=== PATIENT | female | born 1975 | race Caucasian/White ===

== ENCOUNTER 2018-02-05 18:32 | Emergency (ER) | payer OTHER, SELFPAY ==
[2018-02-05] MEDS ORDERED: METOCLOPRAMIDE 10 MG/2mL INJ ONE ×2 (21:56→22:25)
[2018-02-05] MEDS ORDERED: KETOROLAC 30 MG/ML INJ ONE ×2 (21:57→22:25)
[2018-02-05] MEDS ORDERED: DIPHENHYDRAMINE 50 MG/ML VIAL ONE ×2 (21:57→22:25)
[2018-02-05 23:19] LABS: Urine Blood NEGATIVE (NEG); Urine Glucose NEGATIVE (NEG); Urine Protein NEGATIVE (NEG)
[2018-02-05] MEDS ORDERED: DEXAMETHASONE 10 MG/ML VIAL ONE (23:46)
--- NOTE | 2018-02-05 23:56 | ER ---
Nurse's Notes [facility] Name: Dara Looney Age: 42 yrs Sex: Female : 1975 Arrival Date: 02/05/2018 Time: 18:32 Bed 18 Private MD: Diagnosis: Headache Presentation: 02/05 19:00 Presenting complaint: Patient states: "I have had migraines my whole life. I haven't lk1 had one in a while. I was seeing designs in my eyes yesterday and I laid down. This morning I woke up with horrible pain and vomiting. I could not go to work.". Transition of care: patient was not received from another setting of care. Onset of symptoms was February 04, 2018 at 09:00. Care prior to arrival: None. 19:00 Method Of Arrival: Ambulatory lk1 19:00 Acuity: SHEILA 3 lk1 Triage Assessment: 19:02 Headache History: The patient has had previous headaches and this one is different than lk1 previous episodes, and this one is more severe than previous episodes. General: Appears uncomfortable, Behavior is calm, cooperative, appropriate for age. Pain: Complains of pain in head Pain currently is 10 out of 10 on a pain scale. Pain began 2-3 days ago. Also complains of nausea, vomit. Neuro: Level of Consciousness is awake, alert, obeys commands, Oriented to person, place, time, situation, Moves all extremities. Full function Gait is steady, Speech is normal, Facial symmetry appears normal, Pupils are PERRLA. CONVEYOR FEEDER: 19:03 LMP N/A - Hysterectomy lk1 Historical: - Allergies: 19:02 No Known Allergies; lk1 - PMHx: 19:02 hiatal hernia; Migraines; lk1 - PSHx: 19:02 Tonsillectomy; ; Hysterectomy; Cholecystectomy; lk1 - Immunization history:: Adult Immunizations up to date. - Social history:: Smoking status: Patient/guardian denies using tobacco. Screenin:45 Abuse screen: Denies threats or abuse. Denies injuries from another. Nutritional bp screening: No deficits noted. Tuberculosis screening: No symptoms or risk factors identified. Fall Risk None identified. Assessment: 20:45 General: Appears in no apparent distress. comfortable, obese, Behavior is calm, bp cooperative, appropriate for age. Pain: Complains of pain in head. Neuro: Level of Consciousness is awake, alert, obeys commands, Oriented to person, place, time, situation, Appropriate for age. Cardiovascular: No deficits noted. Respiratory: Airway is patent Respiratory effort is even, unlabored, Respiratory pattern is regular, symmetrical. GI: Reports vomiting. : No signs and/or symptoms were reported regarding the genitourinary system. EENT: No deficits noted. Derm: No deficits noted. Musculoskeletal: Circulation, motion, and sensation intact. Range of motion: intact in all extremities. 21:48 Reassessment: PT REFUSING HEALTH CARE ACTIVITIES, STATING OFFERED PAIN MEDICATION bp "WON'T WORK FOR ME". WHEN ASKED WHAT THE ER CAN HELP HER WITH TODAY, PT REFUSED TO SPEAK FURTHER WITH NURSING STAFF. PROVIDER NOTIFIED. 22:20 Reassessment: PT COUNSELED BY PROVIDER, NOW AGREEING TO FURTHER HEALTH CARE ACTIVITIES. bp PT TO CT WITH DISC JOCKEY. 02/06 00:14 Reassessment: PT D/C HOME AMBULATORY WITH FAMILY, DX WITH HEADACHE. bp Vital Signs: 02/05 19:03 BP 118 / 83; Pulse 72; Resp 15; Temp 99.0(TE); Pulse Ox 100% on R/A; Weight 99.79 kg lk1 (R); Height 5 ft. 5 in. (165.10 cm) (R); Pain 10/10; 22:30 BP 104 / 85; Pulse 67; Resp 15; Pulse Ox 99% on R/A; mt 23:27 BP 109 / 76; Pulse 89; Resp 15; Pulse Ox 99% on R/A; mt 19:03 Body Mass Index 36.61 (99.79 kg, 165.10 cm) lk1 ED Course: 18:32 Patient arrived in ED. as 19:01 Triage completed. lk1 19:04 Arm band placed on right wrist. lk1 20:45 Patient has correct armband on for positive identification. Bed in low position. Call bp light in reach. Side rails up X2. 20:46 Ulices Baca NP is PHCP. pm1 20:46 Irvin Velasco MD is Attending Physician. pm1 20:49 Osmin Chakraborty, DENNIS is Primary Nurse. bp 22:10 Inserted saline lock: 20 gauge in right antecubital area, using aseptic technique. bp 22:25 CT Head Brain wo Cont In Process Unspecified. EDMS 23:56 Alli Silverman MD is Referral Physician. pm1 02/06 00:15 No provider procedures requiring assistance completed. IV discontinued, intact, bp bleeding controlled, No redness/swelling at site. Pressure dressing applied. Administered Medications: 02/05 21:48 Not Given (Patient Refused): Benadryl 25 mg IVP once bp 21:48 Not Given (Patient Refused): TORadol 30 mg IVP once bp 21:48 Not Given (Patient Refused): Reglan 10 mg IVP once; over 1 to 2 minutes bp 21:48 Not Given (Patient Refused): NS 0.9% 1000 ml IV at 1000 ml once bp 22:15 Drug: Reglan 10 mg Route: IVP; Site: right antecubital; bp 23:43 Follow up: Response: No adverse reaction bp 22:15 Drug: Benadryl 25 mg Route: IVP; Site: right antecubital; bp 23:43 Follow up: Response: Pain is decreased bp 22:15 Drug: Ketorolac 30 mg Route: IVP; Site: right antecubital; bp 23:43 Follow up: Response: Pain is decreased bp 23:30 Drug: Decadron - Dexamethasone 10 mg Route: IVP; Site: right antecubital; bp 23:43 Follow up: Response: Pain is decreased bp Outcome: 23:56 Discharge ordered by . pm1 02/06 00:15 Discharged to home ambulatory, with family. bp Condition: stable Discharge instructions given to patient, Instructed on discharge instructions, follow up and referral plans. medication usage, Demonstrated understanding of instructions, follow-up care, medications, Prescriptions given X 1. 00:16 Patient left the ED. bp Signatures: Dispatcher [employer] EDMS Dorcas Shaw Leah RN RN lk1 Ulices Baca, KAYE SUPERVISOR DRAPERY HANGING pm1 Shaniqua Maciel mt, Brian, RN RN bp
--- NOTE | 2018-02-05 23:56 | EDPHYS ---
Physician Documentation [facility] Name: Dara Looney Age: 42 yrs Sex: Female : 1975 Arrival Date: 02/05/2018 Time: 18:32 Bed 18 Private MD: ED Physician Irvin Velasco HPI: 02/05 22:00 This 42 yrs old Female presents to ER via Ambulatory with complaints of pm1 Headache, Vomiting. 22:00 The patient complains of pain to the right eye and right side of forehead. The patient pm1 describes the headache as aching. Onset: The symptoms/episode began/occurred 2 day(s) ago. Associated signs and symptoms: Pertinent positives: nausea, vomiting, Pertinent negatives: neck stiffness, paresthesias, rash, vision changes. Severity of symptoms: in the emergency department the pain is actually worse. Headache History: The patient has had previous headaches and this one is similar to previous episodes, and this one is more severe than previous episodes. The symptoms are alleviated by nothing. the symptoms are aggravated by lights. The patient has experienced similar episodes in the past, multiple times. The patient has not recently seen a physician. Patient with similar headache presentation today to her prior migraine headaches, just more intense.. 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 - Social history:: Smoking status: Patient/guardian denies using tobacco. ROS: 22:00 Constitutional: Negative for fever, chills, and weight loss, Eyes: Negative for injury, pm1 pain, redness, and discharge, ENT: Negative for injury, pain, and discharge, Neck: Negative for injury, pain, and swelling, Cardiovascular: Negative for chest pain, palpitations, and edema, Respiratory: Negative for shortness of breath, cough, wheezing, and pleuritic chest pain, Back: Negative for injury and pain, : Negative for injury, bleeding, discharge, and swelling, MS/Extremity: Negative for injury and deformity, Skin: Negative for injury, rash, and discoloration. 22:00 Abdomen/GI: Positive for nausea and vomiting, Negative for abdominal pain, diarrhea. 22:00 Neuro: Positive for headache. Exam: 22:00 Constitutional: This is a well developed, well nourished patient who is awake, alert, pm1 and in no acute distress. Head/Face: Normocephalic, atraumatic. Eyes: Pupils equal round and reactive to light, extra-ocular motions intact. Lids and lashes normal. Conjunctiva and sclera are non-icteric and not injected. Cornea within normal limits. Periorbital areas with no swelling, redness, or edema. ENT: Nares patent. No nasal discharge, no septal abnormalities noted. Tympanic membranes are normal and external auditory canals are clear. Oropharynx with no redness, swelling, or masses, exudates, or evidence of obstruction, uvula midline. Mucous membranes moist. Neck: Trachea midline, no thyromegaly or masses palpated, and no cervical lymphadenopathy. Supple, full range of motion without nuchal rigidity, or vertebral point tenderness. No Meningismus. Chest/axilla: Normal chest wall appearance and motion. Nontender with no deformity. No lesions are appreciated. Cardiovascular: Regular rate and rhythm with a normal S1 and S2. No gallops, murmurs, or rubs. Normal PMI, no JVD. No pulse deficits. Respiratory: Lungs have equal breath sounds bilaterally, clear to auscultation and percussion. No rales, rhonchi or wheezes noted. No increased work of breathing, no retractions or nasal flaring. Abdomen/GI: Soft, non-tender, with normal bowel sounds. No distension or tympany. No guarding or rebound. No evidence of tenderness throughout. Back: No spinal tenderness. No costovertebral tenderness. Full range of motion. Skin: Warm, dry with normal turgor. Normal color with no rashes, no lesions, and no evidence of cellulitis. MS/ Extremity: Pulses equal, no cyanosis. Neurovascular intact. Full, normal range of motion. 22:00 Neuro: Orientation: is normal, Mentation: is normal, Cranial nerves: CN II- XII are normal as tested, Cerebellar function: normal finger to nose testing, Motor: moves all fours, strength is normal, strength is 5/5 in all extremities, Sensation: is normal, no obvious gross deficits. Vital Signs: 19:03 BP 118 / 83; Pulse 72; Resp 15; Temp 99.0(TE); Pulse Ox 100% on R/A; Weight 99.79 kg lk1 (R); Height 5 ft. 5 in. (165.10 cm) (R); Pain 10/10; 22:30 BP 104 / 85; Pulse 67; Resp 15; Pulse Ox 99% on R/A; mt 23:27 BP 109 / 76; Pulse 89; Resp 15; Pulse Ox 99% on R/A; mt 19:03 Body Mass Index 36.61 (99.79 kg, 165.10 cm) lk1 MDM: 20:51 Patient medically screened. pm1 23:53 Data reviewed: vital signs. Data interpreted: Pulse oximetry: on room air is 99 %. pm1 Interpretation: normal. Counseling: I had a detailed discussion with the patient and/or guardian regarding: the historical points, exam findings, and any diagnostic results supporting the discharge/admit diagnosis, radiology results, the need for outpatient follow up, to return to the emergency department if symptoms worsen or persist or if there are any questions or concerns that arise at home. 02/05 22:40 Order name: Urine Dipstick--Ancillary (enter results); Complete Time: 03:42 em1 02/05 22:05 Order name: CT Head Brain wo Cont pm1 02/05 21:35 Order name: IV Saline Lock; Complete Time: 22:18 pm1 02/05 22:05 Order name: Urine Dipstick-Ancillary (obtain specimen); Complete Time: 22:33 pm1 02/05 22:05 Order name: Urine Test (obtain specimen); Complete Time: 22:33 pm1 Administered Medications: 21:48 Not Given (Patient Refused): Benadryl 25 mg IVP once bp 21:48 Not Given (Patient Refused): TORadol 30 mg IVP once bp 21:48 Not Given (Patient Refused): Reglan 10 mg IVP once; over 1 to 2 minutes bp 21:48 Not Given (Patient Refused): NS 0.9% 1000 ml IV at 1000 ml once bp 22:15 Drug: Reglan 10 mg Route: IVP; Site: right antecubital; bp 23:43 Follow up: Response: No adverse reaction bp 22:15 Drug: Benadryl 25 mg Route: IVP; Site: right antecubital; bp 23:43 Follow up: Response: Pain is decreased bp 22:15 Drug: Ketorolac 30 mg Route: IVP; Site: right antecubital; bp 23:43 Follow up: Response: Pain is decreased bp 23:30 Drug: Decadron - Dexamethasone 10 mg Route: IVP; Site: right antecubital; bp 23:43 Follow up: Response: Pain is decreased bp Disposition: 02/06 01:29 Co-signature as Attending Physician, Irvin Velasco MD. cory Disposition: 02/05/18 23:56 Discharged to Home. Impression: Headache. - Condition is Stable. - Discharge Instructions: Migraine Headache. - Prescriptions for Fiorinal 50- 325-40 mg Oral Capsule - take 1 capsule by ORAL route every 4 hours As needed - not to exceed 6 capsules per day; 20 capsule. - Work release form, Medication Reconciliation Form, Thank You Letter, Prescription Opioid Use form. - Follow up: Emergency Department; When: As needed; Reason: Worsening of condition. Follow up: Private Physician; When: 2 - 3 days; Reason: Recheck today's complaints, Continuance of care, Re-evaluation by your physician. Follow up: Alli Silverman MD; When: 2 - 3 days; Reason: Recheck today's complaints, Continuance of care, Re-evaluation by your physician. - Problem is new. - Symptoms have improved. Signatures: Dispatcher [employer] Irvin Feldman MD MD pkl Kluge, Leah RN RN lk1 Ulices Baca, KAYE PRESS READER pm1 Osmin Chakraborty RN RN bp
[2018-02-06] MEDS ORDERED: DEXAMETHASONE 10 MG/ML VIAL ONE (00:01)
[2018-02-06 01:08] VITALS: TEMP 99
[2018-02-06 01:09] VITALS: O2SAT 99
[2018-02-06 01:11] VITALS: BP 109/76
--- NOTE | 2018-02-06 08:54 | RAD REPORT ---
EXAM DESCRIPTION: CT - Head Brain Wo Cont - 02/06/2018 2:29 am CLINICAL HISTORY: Headache COMPARISON: None. TECHNIQUE: Computed axial tomography of the head was obtained. IV contrast was not requested. A prel iminary report was generated by [employer] and reviewed prior to this dictation All CT scans are performed using dose optimization technique as appropriate and may include automated exposure control or mA/KV adjustment according to patient size. FINDINGS: An intracranial bleed is not seen . The ventricles are normal in caliber. No extra-axial fluid collection is noted. Fluid within the sinuses/ mastoids is not seen. IMPRESSION: No acute intracranial abnormality is seen. If patient's symptoms persist MRI of the bra in would be recommended.
== END 2018-02-06 00:16 | disposition home or self-care (01) ==
LOC: ER 18:32
DX: R51 Headache (principal)
CPT/HCPCS: 70450; 81003; 96374; 96375; 99284; J1100; J2765

== ENCOUNTER 2018-10-12 18:51 | Emergency (ER) | payer OTHER ==
--- OUTSIDE RECORDS SUMMARY | 2018-10-12 18:53 | XMS REPORT ---
:1975 [facility] Address [address] [place] [address] [address] [place] [address] Care Team Providers Name Role Phone Unavailable Unavailable Unavailable Problems This patient has no known problems. Allergies, Adverse Reactions, Alerts This patient has no known allergies or adverse reactions. Medications This patient has no known medications.
[2018-10-12] MEDS ORDERED: HYDROCODONE/APAP 10/325 TAB ONE (20:02)
--- NOTE | 2018-10-12 20:27 | RAD REPORT ---
EXAM DESCRIPTION: RAD - Foot Right 3 View - 10/12/2018 8:15 pm CLINICAL HISTORY: Slip and fall, twisting injury, foot and ankle pain COMPARISON: None. FINDINGS: No fracture, dislocation or periosteal reaction. No acute bone or joint finding. Patient h as a small plantar spur. No air or foreign body in the soft tissues. IMPRESSION: No fracture or acute finding. Small plantar spur.
--- NOTE | 2018-10-12 20:28 | RAD REPORT ---
EXAM DESCRIPTION: RAD - Ankle Right 3 View - 10/12/2018 8:14 pm CLINICAL HISTORY: Slip and fall, twisting injury, ankle pain, foot pain COMPARISON: None. FINDINGS: No acute fracture, dislocation or periosteal reaction. No joint effusion seen. No joint sp cece narrowing. Minimal soft tissue swelling is present lateral foot and ankle region. Patient does mcginnis ve a small plantar spur and minimal spurring at the Achilles attachment. IMPRESSION: Negative right ankle for acute bone finding. Mild lateral soft tissue swelling.
--- NOTE | 2018-10-12 20:29 | RAD REPORT ---
EXAM DESCRIPTION: RAD - Hip Left 2 View - 10/12/2018 8:16 pm CLINICAL HISTORY: Slip and fall, hip pain COMPARISON: None. FINDINGS: AP and frogleg views of the left hip were obtained. There is no fracture or dislocation. N o acute or destructive bony process seen. No soft tissue abnormality. IMPRESSION: Negative left hip examination for acute or significant findings.
--- NOTE | 2018-10-12 20:30 | RAD REPORT ---
EXAM DESCRIPTION: RAD - Lumbar Spine 3 Views - 10/12/2018 8:18 pm CLINICAL HISTORY: Slip and fall, back pain COMPARISON: None. FINDINGS: A three-view lumbar spine examination was performed. Lumbar bodies are normal in height an d normal in AP alignment. There is right lateral tilt of the lumbar spine which may reflect muscle sp asm. Patient could potentially have scoliosis that is outside the field of view. No fracture or acute bony process seen. No disc space narrowing. No pars defects identified. IMPRESSION: No fracture or acute bone finding. Right lateral tilt of the upper lumbar spine may be part of muscle spasm or scoliosis.
[2018-10-12] MEDS ORDERED: IBUPROFEN 400 MG TAB ONE (20:51)
[2018-10-12] MEDS ORDERED: IBUPROFEN 200 MG TAB PO ONE (20:51)
[2018-10-12] MEDS ORDERED: CYCLOBENZAPRINE 10 MG TAB ONE (20:51)
[2018-10-12 21:27] LABS: Urine Specific Gravity 1.015 (1.005-1.030)
[2018-10-12 21:28] LABS: Urine Blood NEGATIVE (NEG); Urine Glucose NEGATIVE (NEG); Urine Protein NEGATIVE (NEG); Urine pH 5.5 (5.0-7.0)
--- NOTE | 2018-10-12 21:32 | ER ---
Nurse's Notes [facility] Name: Dara Looney Age: 43 yrs Sex: Female : 1975 Arrival Date: 10/12/2018 Time: 18:54 Bed 6 Private MD: Diagnosis: Pain in right ankle and joints of right foot;Pain in left hip;Low back pain;Other slipping, tripping and stumbling and falls Presentation: 10/12 18:57 Presenting complaint: Slipped while going down front porch steps, left leg went under, hb right leg extended as she fell down approx 6 steps. Now c/o pain in left back, left hip, left knee, and right foot. Unable to bear weight on right foot. Negative LOC. Not on blood thinners. Care prior to arrival: None. Mechanism of Injury: Fall down 6 steps. Trauma event details: Injury occurred in the [facility], Injury occurred: at home. Injury occurred: October 12, 2018 Injury occurred at: 16:30. 18:57 Acuity: SHEILA 3 hb 18:57 Method Of Arrival: Wheelchair hb 19:33 Transition of care: patient was not received from another setting of care. Onset of ea symptoms was October 12, 2018. Risk Assessment: Do you want to hurt yourself or someone else? Patient reports no desire to harm self or others. Initial Sepsis Screen: Does the patient meet any 2 criteria? No. Patient's initial sepsis screen is negative. Does the patient have a suspected source of infection? No. Patient's initial sepsis screen is negative. 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: 19:00 LMP N/A - Hysterectomy hb Trauma Activation: Not Applicable Physician: ED Physician; Name: ; Notified At: ; Arrived At: Physician: General Surgeon; Name: ; Notified At: ; Arrived At: Physician: Radiology; Name: ; Notified At: ; Arrived At: Physician: Respiratory; Name: ; Notified At: ; Arrived At: Physician: Lab; Name: ; Notified At: ; Arrived At: Historical: - Allergies: 19: No Known Allergies; hb - Home Meds: : Nexium 40 mg Oral cpDR 1 cap once daily [Active]; hb - PMHx: 19: hiatal hernia; Migraines; hb - PSHx: 19: Tonsillectomy; ; Hysterectomy; Cholecystectomy; hb - Immunization history:: Adult Immunizations up to date. - Social history:: Smoking status: Patient/guardian denies using tobacco. - Ebola Screening: : No symptoms or risks identified at this time. Screenin:01 Abuse screen: Denies threats or abuse. Denies injuries from another. Tuberculosis hb screening: No symptoms or risk factors identified. 19:34 Nutritional screening: No deficits noted. Fall Risk ea Primary Survey: 19:00 A: Airway: patent. Breathing/Chest: Respiratory pattern: regular, Respiratory effort: hb spontaneous, unlabored, Chest inspection: symmetrical rise and fall of the chest. Circulation: Skin color: pink, Skin temperature: warm, dry. Disability Alert. Assessment: 19:29 General: Appears uncomfortable, Behavior is calm, cooperative, appropriate for age. ea Pain: Complains of pain in right trapezius, right scapular area, right subscapular area, right mid back, right foot, right gluteal fold, right hamstring and posterior aspect of right knee. Neuro: Level of Consciousness is awake, alert, obeys commands, Oriented to person, place, time, situation. Cardiovascular: Patient's skin is warm and dry. Respiratory: Airway is patent Respiratory effort is even, unlabored, Respiratory pattern is regular, symmetrical. Derm: Skin is pink, warm \T\ dry. Musculoskeletal: Reports pain in right foot and right leg. Injury Description: Abrasion sustained to right hamstring. 20:23 Reassessment: Patient and/or family updated on plan of care and expected duration. Pain ea level reassessed. Patient is alert, oriented x 3, equal unlabored respirations, skin warm/dry/pink. Returned from radiology. 22:41 Reassessment: Patient appears in no apparent distress at this time. Patient is alert, aa1 oriented x 3, equal unlabored respirations, skin warm/dry/pink. Discussed d/c \T\ f/u instructions with pt \T\ spouse; denies questions or concerns at this time. Vital Signs: 19:00 BP 125 / 94; Pulse 77; Resp 16; Temp 98.1; Pulse Ox 100% on R/A; Weight 104.33 kg; hb Height 5 ft. 5 in. (165.10 cm); Pain 10/10; 20:24 BP 125 / 88; Pulse 63; Resp 18; Pulse Ox 99% ; ea 19:00 Body Mass Index 38.27 (104.33 kg, 165.10 cm) ED Course: 18:54 Patient arrived in ED. mr 19:00 Triage completed. hb 19:01 Arm band placed on right wrist. hb 19:26 Ulices Baca NP is PHCP. pm1 19:26 Rodolfo Blackmon MD is Attending Physician. pm1 19:29 Paige Peraza RN is Primary Nurse. ea 19:33 No provider procedures requiring assistance completed. ea 19:34 Patient has correct armband on for positive identification. Bed in low position. Call ea light in reach. Side rails up X2. 20:12 Foot Right 3 View XRAY In Process Unspecified. EDMS 20:12 Ankle Right 3 View XRAY In Process Unspecified. EDMS 20:12 Hip Left 2 View XRAY In Process Unspecified. EDMS 20:12 Lumbar Spine (3 Views) XRAY In Process Unspecified. EDMS 22:20 Crutch training done. Orthoglass splint: Posterior short lleg splint applied on right aa1 leg. 22:41 Patient did not have IV access during this emergency room visit. aa1 Administered Medications: 19:53 Drug: [place] 10 mg-325 mg 1 tabs Route: PO; ea 20:48 Follow up: Response: No adverse reaction; Pain is decreased ea 20:47 Drug: Flexeril 10 mg Route: PO; ea 20:47 Drug: Ibuprofen 600 mg Route: PO; ea 22:06 Drug: Zofran 4 mg Route: PO; jd3 Outcome: 21:31 Discharge ordered by . pm1 22:43 Discharged to home via wheelchair, with crutches, with significant other. aa1 22:43 Condition: good 22:43 Discharge instructions given to patient, significant other, Instructed on discharge instructions, follow up and referral plans. medication usage, crutch walking, Demonstrated understanding of instructions, follow-up care, medications, crutch walking, splint care, Prescriptions given X 2. 22:43 Patient left the ED. aa1 Signatures: Dispatcher [employer] EDMS Angela Nuñez RN RN aa1 Cristina Álvarez mr Ulices Baca, KAYE WORKERS COMPENSATION CLAIMS ASSISTANT pm1 Callie Khan RN RN Paige Peraza RN RN ea Davies, Jonathon, RN RN jd3
--- NOTE | 2018-10-12 21:33 | EDPHYS ---
Physician Documentation [facility] Name: Dara Looney Age: 43 yrs Sex: Female : 1975 Arrival Date: 10/12/2018 Time: 18:54 Bed 6 Private MD: ED Physician Rodolfo Blackmon HPI: 10/12 20:00 This 43 yrs old Female presents to ER via Wheelchair with complaints of Fall pm1 Injury. 20:00 Details of fall: The patient fell from an upright position, while walking. Onset: The pm1 symptoms/episode began/occurred just prior to arrival. Associated injuries: The patient sustained injury to the low back, pain, right foot, Pain, right ankle, swelling, Pain, Left hip, Pain. Patient was walking down wet stairs at her house outside and slipped with left leg forward and her right leg behind her. No headache, neck pain or LOC. . [employer]: 19:00 LMP N/A - Hysterectomy hb Historical: - Allergies: 19:01 No Known Allergies; hb - Home Meds: 19:01 Nexium 40 mg Oral cpDR 1 cap once daily [Active]; hb - PMHx: 19:01 hiatal hernia; Migraines; hb - PSHx: 19:01 Tonsillectomy; ; Hysterectomy; Cholecystectomy; hb - Immunization history:: Adult Immunizations up to date. - Social history:: Smoking status: Patient/guardian denies using tobacco. - Ebola Screening: : No symptoms or risks identified at this time. ROS: 20:00 Constitutional: Negative for fever, chills, and weight loss, Eyes: Negative for injury, pm1 pain, redness, and discharge, ENT: Negative for injury, pain, and discharge, Neck: Negative for injury, pain, and swelling, Cardiovascular: Negative for chest pain, palpitations, and edema, Respiratory: Negative for shortness of breath, cough, wheezing, and pleuritic chest pain, Abdomen/GI: Negative for abdominal pain, nausea, vomiting, diarrhea, and constipation. 20:00 : Negative for injury, bleeding, discharge, and swelling. 20:00 Skin: Negative for injury, rash, and discoloration, Neuro: Negative for headache, weakness, numbness, tingling, and seizure. 20:00 Back: Positive for pain at rest, of the low back area. 20:00 MS/extremity: Positive for pain, of the right ankle and right foot and left hip. Exam: 20:00 Constitutional: This is a well developed, well nourished patient who is awake, alert, pm1 and in no acute distress. Head/Face: Normocephalic, atraumatic. Eyes: Pupils equal round and reactive to light, extra-ocular motions intact. Lids and lashes normal. Conjunctiva and sclera are non-icteric and not injected. Cornea within normal limits. Periorbital areas with no swelling, redness, or edema. ENT: Nares patent. No nasal discharge, no septal abnormalities noted. Tympanic membranes are normal and external auditory canals are clear. Oropharynx with no redness, swelling, or masses, exudates, or evidence of obstruction, uvula midline. Mucous membranes moist. Neck: Trachea midline, no thyromegaly or masses palpated, and no cervical lymphadenopathy. Supple, full range of motion without nuchal rigidity, or vertebral point tenderness. No Meningismus. Chest/axilla: Normal chest wall appearance and motion. Nontender with no deformity. No lesions are appreciated. Cardiovascular: Regular rate and rhythm with a normal S1 and S2. No gallops, murmurs, or rubs. Normal PMI, no JVD. No pulse deficits. Respiratory: Lungs have equal breath sounds bilaterally, clear to auscultation and percussion. No rales, rhonchi or wheezes noted. No increased work of breathing, no retractions or nasal flaring. Abdomen/GI: Soft, non-tender, with normal bowel sounds. No distension or tympany. No guarding or rebound. No evidence of tenderness throughout. 20:00 Skin: Warm, dry with normal turgor. Normal color with no rashes, no lesions, and no evidence of cellulitis. 20:00 Back: pain, of the low back area, normal spinal alignment noted, vertebral tenderness, is not appreciated. 20:00 Musculoskeletal/extremity: Extremities: grossly normal except: noted in the left hip: tenderness, There is no evidence of deformity, shortening, noted in the right ankle: tenderness, no evidence of decreased ROM, deformity, noted in the dorsum of right foot: tenderness, no evidence of deformity, ROM: intact in all extremities. 20:00 Neuro: Orientation: is normal, Motor: is normal, moves all fours. Vital Signs: 19:00 BP 125 / 94; Pulse 77; Resp 16; Temp 98.1; Pulse Ox 100% on R/A; Weight 104.33 kg; hb Height 5 ft. 5 in. (165.10 cm); Pain 10/10; 20:24 BP 125 / 88; Pulse 63; Resp 18; Pulse Ox 99% ; ea 19:00 Body Mass Index 38.27 (104.33 kg, 165.10 cm) hb MDM: 19:46 Patient medically screened. pm1 21:24 Data reviewed: vital signs. Data interpreted: Pulse oximetry: on room air is 99 %. pm1 Interpretation: normal. Counseling: I had a detailed discussion with the patient and/or guardian regarding: the historical points, exam findings, and any diagnostic results supporting the discharge/admit diagnosis, radiology results, the need for outpatient follow up, a orthopedic surgeon, to return to the emergency department if symptoms worsen or persist or if there are any questions or concerns that arise at home. 21:24 ED course: Patient offered air cast splint. Able to passively move right ankle without pm1 pain. Patient requested ortho-glass. 10/12 19:30 Order name: Urine Dipstick--Ancillary (enter results) ar5 10/12 19:30 Order name: Urine Dipstick-Ancillary; Complete Time: 21:48 EDMS 10/12 19:46 Order name: Foot Right 3 View XRAY; Complete Time: 20:32 pm1 10/12 19:46 Order name: Ankle Right 3 View XRAY; Complete Time: 20:32 pm1 10/12 19:46 Order name: Hip Left 2 View XRAY; Complete Time: 20:32 pm1 10/12 19:46 Order name: Lumbar Spine (3 Views) XRAY; Complete Time: 20:32 pm1 10/12 21:22 Order name: Crutches; Complete Time: 22:36 pm1 10/12 21:22 Order name: Splint - Ankle: Orthoglass: Stirrup; Complete Time: 22:36 pm1 Administered Medications: 19:53 Drug: [place] 10 mg-325 mg 1 tabs Route: PO; ea 20:48 Follow up: Response: No adverse reaction; Pain is decreased ea 20:47 Drug: Flexeril 10 mg Route: PO; ea 20:47 Drug: Ibuprofen 600 mg Route: PO; ea 22:06 Drug: Zofran 4 mg Route: PO; jd3 Disposition: 10/13 06:19 Co-signature as Attending Physician, Rodolfo Blackmon MD Available for consultation at ps1 all times. . Disposition: 10/12/18 21:31 Discharged to Home. Impression: Pain in right ankle and joints of right foot, Pain in left hip, Low back pain, Other slipping, tripping and stumbling and falls. - Condition is Stable. - Discharge Instructions: Ankle Sprain, Contusion, Crutch Use, Foot Sprain. - Prescriptions for Naprosyn 500 mg Oral Tablet - take 1 tablet by ORAL route 2 times per day take with food; 30 tablet. Tylenol- Codeine #3 300-30 mg Oral Tablet - take 2 tablets by ORAL route every 6 hours As needed; 20 tablet. - Work release form, Medication Reconciliation Form, Thank You Letter, Prescription Opioid Use form. - Follow up: Emergency Department; When: As needed; Reason: Worsening of condition. Follow up: Private Physician; When: 2 - 3 days; Reason: Recheck today's complaints, Continuance of care, Re-evaluation by your physician. - Problem is new. - Symptoms have improved. Signatures: Dispatcher [employer] EDMS Angela Nuñez RN RN aa1 Ulices Baca, KAYE FRAME NAILER pm1 Callie Khan RN DENNIS Paige Peraza RN RN Cb Decker RN RN jd3 Rodolfo Blackmon MD MD ps1 Corrections: (The following items were deleted from the chart) 10/12 22:43 21:31 10/12/2018 21:31 Discharged to Home. Impression: Pain in right ankle and joints aa1 of right foot; Pain in left hip; Low back pain; Other slipping, tripping and stumbling and falls. Condition is Stable. Forms are Medication Reconciliation Form, Thank You Letter, Antibiotic Education, Prescription Opioid Use. Follow up: Emergency Department; When: As needed; Reason: Worsening of condition. Follow up: Private Physician; When: 2 - 3 days; Reason: Recheck today's complaints, Continuance of care, Re-evaluation by your physician. Problem is new. Symptoms have improved. pm1
[2018-10-12] MEDS ORDERED: ONDANSETRON 4 MG/2 ML VIAL ONE (22:10)
[2018-10-12] MEDS ORDERED: ONDANSETRON 4 MG (ODT) TAB ONE (22:11)
[2018-10-12 23:13] VITALS: TEMP 98.1
[2018-10-12 23:20] VITALS: BP 125/88; O2SAT 99
== END 2018-10-12 22:43 | disposition home or self-care (01) ==
LOC: ER 18:51
DX: M25.571 Pain in right ankle and joints of right foot (principal); M54.5 Low back pain; M25.552 Pain in left hip; W18.49XA Other slipping, tripping and stumbling without falling, initial encounter
CPT/HCPCS: 72100; 81003; 99284; J2405

== ENCOUNTER 2018-11-13 13:03 | Observation (INO) | payer OTHER ==
--- OUTSIDE RECORDS SUMMARY | 2018-11-13 13:04 | XMS REPORT ---
:1975 Author Organization [facility] Address [address] [place] [address] [address] [place] [address] Care Team Providers Name Role Phone Unavailable Unavailable Unavailable Problems This patient has no known problems. Allergies, Adverse Reactions, Alerts This patient has no known allergies or adverse reactions. Medications This patient has no known medications.
[2018-11-13 13:43] LABS: Absolute Lymphocytes (CBC) 2.7 K/uL (0.7-4.9); Absolute Monocytes 0.8 K/uL (0.1-1.3); Basophils % 1.2 % (0-1.3); Eosinophils % 0.5 % (0-4.4); Hematocrit 42.8 % (36.0-45.0); Lymphocytes % 28.2 % (15.3-44.8); MPV 8.9 fL (7.6-11.3); Monocytes % 8.3 % (3.3-12.3); RBC Red Blood Cell Count 5.07 M/uL (3.86-4.86)
--- NOTE | 2018-11-13 13:52 | RAD REPORT ---
EXAM DESCRIPTION: Lesly Single View11/13/2018 1:38 pm CLINICAL HISTORY: Chest pain COMPARISON: 2013 FINDINGS: An area of scarring or subsegmental atelectasis is present the left lung base. The remainder of the lungs appear clear Heart is normal size
[2018-11-13 14:04] LABS: BUN Blood Urea Nitrogen 9 mg/dL (7-18); Bicarbonate 23 mmol/L (21-32); Glucose Level 93 mg/dL (74-106); NT PRO-BNP 124 pg/mL (<125); Potassium 3.8 mmol/L (3.5-5.1); Sodium Level 139 mmol/L (136-145); Troponin (Emerg Dept Use Only) < 0.02 ng/mL (0.0-0.045)
[2018-11-13] MEDS ORDERED: ASPIRIN 81 MG CHEWABLE TABLET ONE (14:25)
--- NOTE | 2018-11-13 14:41 | ER ---
Nurse's Notes [facility] Name: Dara Looney Age: 43 yrs Sex: Female : 1975 Arrival Date: 11/13/2018 Time: 13:04 Bed 19 Private MD: Gallito Linton H Diagnosis: Chest pain, unspecified Presentation: 11/13 13:05 Presenting complaint: Patient states: Dry cough, shortness and breath and chest sg tightness and pressure and feeling fatigue for a day or two days now. Transition of care: patient was not received from another setting of care. Onset of symptoms was November 13, 2018. Risk Assessment: Do you want to hurt yourself or someone else? Patient reports no desire to harm self or others. Initial Sepsis Screen: Does the patient meet any 2 criteria? No. Patient's initial sepsis screen is negative. Does the patient have a suspected source of infection? No. Patient's initial sepsis screen is negative. Care prior to arrival: None. 13:05 Method Of Arrival: EMS: [facility] sg 13:05 Acuity: SHEILA 3 sg Historical: - Allergies: 13:08 No Known Allergies; sg - Home Meds: 13:07 Nexium 40 mg Oral cpDR 1 cap once daily [Active]; sg - PMHx: 13:07 hiatal hernia; Migraines; sg - PSHx: 13:07 Tonsillectomy; ; Hysterectomy; Cholecystectomy; sg - Immunization history:: Adult Immunizations up to date. - Social history:: Smoking status: Patient uses tobacco products. - Ebola Screening: : Patient negative for fever greater than or equal to 101.5 degrees Fahrenheit, and additional compatible Ebola Virus Disease symptoms Patient denies exposure to infectious person Patient denies travel to an Ebola-affected area in the 21 days before illness onset No symptoms or risks identified at this time. - Family history:: not pertinent. - Hospitalizations: : No recent hospitalization is reported. Screenin:16 Abuse screen: Denies threats or abuse. Denies injuries from another. Nutritional sg screening: No deficits noted. Tuberculosis screening: No symptoms or risk factors identified. Never had TB. Fall Risk None identified. Assessment: 13:15 Reassessment: Patient appears in no apparent distress at this time. General: Behavior sg is calm, cooperative, appropriate for age. Pain: Complains of pain in chest Pain does not radiate. Quality of pain is described as squeezing. Neuro: No deficits noted. Cardiovascular: Reports shortness of breath, Capillary refill is brisk in bilateral fingers Patient's skin is warm and dry. Chest pain is described as vague, is located in anterior chest wall. Respiratory: Reports shortness of breath at rest cough that is non-productive, dry. GI: Abdomen is round non-distended, Bowel sounds present X 4 quads. Reports vomiting. : No signs and/or symptoms were reported regarding the genitourinary system. EENT: No signs and/or symptoms were reported regarding the EENT system. Derm: Skin is pink, warm \T\ dry. Musculoskeletal: No signs and/or symptoms reported regarding the musculoskeletal system. 14:15 Reassessment: Patient appears in no apparent distress at this time. Patient and/or sg family updated on plan of care and expected duration. Pain level reassessed. Patient is alert, oriented x 3, equal unlabored respirations, skin warm/dry/pink. 15:10 Reassessment: Patient appears in no apparent distress at this time. Patient and/or sg family updated on plan of care and expected duration. Pain level reassessed. Patient is alert, oriented x 3, equal unlabored respirations, skin warm/dry/pink. Vital Signs: 13:21 BP 118 / 70; Pulse 87; Resp 20; Temp 97.8; Pulse Ox 99% on R/A; Weight 113.4 kg (R); sg Height 5 ft. 5 in. (165.10 cm) (R); Pain 7/10; 14:43 BP 111 / 82; Pulse 77; Resp 18; Pulse Ox 99% on R/A; sg 15:54 BP 109 / 77; Pulse 81; Resp 16 S; Pulse Ox 99% on R/A; sg 13:21 Body Mass Index 41.60 (113.40 kg, 165.10 cm) ED Course: 13:04 Patient arrived in ED. sg 13:05 Caleb Pearce MD is Attending Physician. rn 13:05 Gallito Linton DO is Private Physician. sg 13:05 Arm band placed on. sg 13:07 Triage completed. sg 13:15 Patient has correct armband on for positive identification. Call light in reach. Side sg rails up X2. upholsterer outside on. Pulse ox on. NIBP on. 13:15 EKG done, by cardiovascular technician. reviewed by Caleb Pearce MD. 3 13:19 Ran Kim RN is Primary Nurse. sg 13:29 Initial lab(s) drawn, by me, sent to lab. Inserted saline lock: 20 gauge in right dh3 antecubital area, using aseptic technique. Blood collected. 13:37 X-ray completed. Portable x-ray completed in exam room. Patient tolerated procedure jb2 well. 13:41 XRAY Chest (1 view) In Process Unspecified. EDMS 14:40 Marika Stevens MD is Hospitalizing Provider. rn Administered Medications: 14:23 Drug: Aspirin Chewable Tablet 324 mg Route: PO; sg 15:00 Follow up: Response: No adverse reaction sg 15:06 Not Given (Patient Refused): Nitroglycerin 0.4 mg Sublingual once sg 15:06 Drug: morphine 2 mg Route: IVP; Site: right antecubital; sg 15:45 Follow up: Response: No adverse reaction; Pain is decreased sg 15:06 Drug: Zofran 4 mg Route: IVP; Site: right antecubital; sg 15:30 Follow up: Response: No adverse reaction; Nausea is decreased sg Outcome: 14:40 Decision to Hospitalize by Provider. rn 16:33 Admitted to Med/surg accompanied by tech, via wheelchair, room 212, with oxygen, with sg chart, Report called to Uvaldo COLLINS 16:33 Condition: stable 16:33 Instructed on the need for admit, safety practices, Demonstrated understanding of instructions. 16:36 Patient left the ED. sg Signatures: Dispatcher [employer] EDMS Ran Kim, RN RN sg Evelio Gutierrez 2 Caleb Pearce MD MD rn Herrera, Deanna [facility] Donna Saucedo 3 Corrections: (The following items were deleted from the chart) 15:46 15:30 Response: No adverse reaction; Nausea is decreased sg
--- NOTE | 2018-11-13 14:41 | EDPHYS ---
Physician Documentation [facility] Name: Dara Looney Age: 43 yrs Sex: Female : 1975 Arrival Date: 11/13/2018 Time: 13:04 Bed 19 Private MD: Gallito Linton H ED Physician Caleb Pearce HPI: 11/13 13:46 This 43 yrs old Female presents to ER via EMS with complaints of Cough, Chest rn Tightness. 13:46 The patient or guardian reports chest pain that is located primarily in the substernal rn area. Onset: this morning. The pain does not radiate. Associated signs and symptoms: Pertinent positives: shortness of breath, Pertinent negatives: abdominal pain, diaphoresis, dizziness, headache, lower extremity swelling, lightheadedness, nausea, near syncope, palpitations, syncope, vomiting. The chest pain is described as a heaviness, a pressure. Duration: The patient or guardian reports a single episode, that is still ongoing. Severity of pain: At its worst the pain was moderate in the emergency department the pain is unchanged. The patient has experienced a previous episode. Reports chest pain, substernal, non-radiating, assoc with mild sob, began this morning, got worse at work, +mild cough, + mild sob, no abd pain. No diaphoresis or vomiting. . Historical: - Allergies: 13:08 No Known Allergies; sg - Home Meds: 13:07 Nexium 40 mg Oral cpDR 1 cap once daily [Active]; sg - PMHx: 13:07 hiatal hernia; Migraines; sg - PSHx: 13:07 Tonsillectomy; ; Hysterectomy; Cholecystectomy; sg - Immunization history:: Adult Immunizations up to date. - Social history:: Smoking status: Patient uses tobacco products. - Ebola Screening: : Patient negative for fever greater than or equal to 101.5 degrees Fahrenheit, and additional compatible Ebola Virus Disease symptoms Patient denies exposure to infectious person Patient denies travel to an Ebola-affected area in the 21 days before illness onset No symptoms or risks identified at this time. - Family history:: not pertinent. - Hospitalizations: : No recent hospitalization is reported. ROS: 13:46 Constitutional: Negative for fever, chills, and weight loss, Eyes: Negative for injury, rn pain, redness, and discharge, Neck: Negative for injury, pain, and swelling, Cardiovascular: Negative for palpitations, and edema, Respiratory: Negative for shortness of breath, wheezing, and pleuritic chest pain, Abdomen/GI: Negative for abdominal pain, nausea, vomiting, diarrhea, and constipation, MS/Extremity: Negative for injury and deformity, Skin: Negative for injury, rash, and discoloration, Neuro: Negative for headache, weakness, numbness, tingling, and seizure. Exam: 13:45 ECG was reviewed by the Attending Physician. rn 13:46 Constitutional: This is a well developed, well nourished patient who is awake, alert, rn and in no acute distress. Head/Face: Normocephalic, atraumatic. Eyes: Pupils equal round and reactive to light, extra-ocular motions intact. Lids and lashes normal. Conjunctiva and sclera are non-icteric and not injected. Cornea within normal limits. Periorbital areas with no swelling, redness, or edema. Cardiovascular: Regular rate and rhythm with a normal S1 and S2. No gallops, murmurs, or rubs.No JVD. No pulse deficits. Respiratory: Lungs have equal breath sounds bilaterally, clear to auscultation. No rales, rhonchi or wheezes noted. No increased work of breathing, no retractions or nasal flaring. Abdomen/GI: soft, non-tender Skin: Warm, dry with normal turgor. Normal color with no rashes, no lesions, and no evidence of cellulitis. MS/ Extremity: Pulses equal, no cyanosis. Neurovascular intact. Full, normal range of motion. Equal circumference. Neuro: Awake and alert, GCS 15, oriented to person, place, time, and situation. Cranial nerves II-XII grossly intact. Motor strength 5/5 in all extremities. Sensory grossly intact. Vital Signs: 13:21 BP 118 / 70; Pulse 87; Resp 20; Temp 97.8; Pulse Ox 99% on R/A; Weight 113.4 kg (R); sg Height 5 ft. 5 in. (165.10 cm) (R); Pain 7/10; 14:43 BP 111 / 82; Pulse 77; Resp 18; Pulse Ox 99% on R/A; sg 15:54 BP 109 / 77; Pulse 81; Resp 16 S; Pulse Ox 99% on R/A; sg 13:21 Body Mass Index 41.60 (113.40 kg, 165.10 cm) sg MDM: 13:05 Patient medically screened. rn 14:39 Differential diagnosis: abnormal EKG, acute myocardial infarction, anxiety, coronary rn artery disease chest wall pain, costochondritis, pleurisy, pneumonia. The patient was given aspirin in the Emergency Department. Data reviewed: vital signs, nurses notes. Data reviewed: lab test result(s), EKG, radiologic studies, plain films, and as a result, I will discharge patient. Counseling: I had a detailed discussion with the patient and/or guardian regarding: the historical points, exam findings, and any diagnostic results supporting the discharge/admit diagnosis, lab results, radiology results, the need for further work-up and treatment in the hospital. Admission orders: after a detailed discussion of the patient's condition and case, the admit orders are written by me. 11/13 13:06 Order name: Basic Metabolic Panel; Complete Time: 14:08 rn 11/13 13:06 Order name: CBC with Diff; Complete Time: 14:39 rn 11/13 13:06 Order name: NT PRO-BNP; Complete Time: 14:08 rn 11/13 13:06 Order name: Troponin (emerg Dept Use Only); Complete Time: 14:08 rn 11/13 14:34 Order name: Urine Dipstick--Ancillary (enter results) eb 11/13 14:34 Order name: Urine --Ancillary (enter results) eb 11/13 13:06 Order name: XRAY Chest (1 view); Complete Time: 13:56 rn 11/13 13:06 Order name: EKG; Complete Time: 13:07 rn 11/13 13:06 Order name: Cardiac monitoring; Complete Time: 13:36 rn 11/13 13:06 Order name: EKG - Nurse/Tech; Complete Time: 13:36 rn 11/13 13:06 Order name: IV Saline Lock; Complete Time: 13:36 rn 11/13 13:06 Order name: Labs collected and sent; Complete Time: 13:36 rn 11/13 13:06 Order name: O2 Per Protocol; Complete Time: 13:36 rn 11/13 13:06 Order name: O2 Sat Monitoring; Complete Time: 13:36 rn EC:45 Rate is 78 beats/min. Rhythm is regular. QRS [place] is Normal. NC interval is normal. QRS rn interval is normal. QT interval is normal. No Q waves. T waves are Normal. No ST changes noted. Clinical impression: Normal ECG. Interpreted by me. Administered Medications: 14:23 Drug: Aspirin Chewable Tablet 324 mg Route: PO; sg 15:00 Follow up: Response: No adverse reaction sg 15:06 Not Given (Patient Refused): Nitroglycerin 0.4 mg Sublingual once sg 15:06 Drug: morphine 2 mg Route: IVP; Site: right antecubital; sg 15:45 Follow up: Response: No adverse reaction; Pain is decreased sg 15:06 Drug: Zofran 4 mg Route: IVP; Site: right antecubital; sg 15:30 Follow up: Response: No adverse reaction; Nausea is decreased sg Disposition: 11/13/18 14:40 Hospitalization ordered by Marika Stevens for Observation. Preliminary diagnosis is Chest pain, unspecified. - Bed requested for Telemetry/MedSurg (observation). - Status is Observation. sg - Condition is Stable. - Problem is new. - Symptoms have improved. UTI on Admission? No Signatures: Dispatcher [employer] EDRan Hampton RN RN Caleb Olmstead MD MD rn Botello, Elizabeth eb Corrections: (The following items were deleted from the chart) 16:17 14:40 Hospitalization Ordered by Marika Stevens MD for Observation. Preliminary diagnosis eb is Chest pain, unspecified. Bed requested for Telemetry/MedSurg (observation). Status is Observation. Condition is Stable. Problem is new. Symptoms have improved. UTI on Admission? No. rn 16:36 16:17 11/13/2018 14:40 Hospitalization Ordered by Marika Stevens MD for Observation. sg Preliminary diagnosis is Chest pain, unspecified. Bed requested for Telemetry/MedSurg (observation). Status is Observation. Condition is Stable. Problem is new. Symptoms have improved. UTI on Admission? No. eb
[2018-11-13] MEDS ORDERED: ONDANSETRON 4 MG/2 ML VIAL ONE (15:05)
[2018-11-13] MEDS ORDERED: MORPHINE 4 MG/ML SYR ONE (15:05)
[2018-11-13] MEDS ORDERED: ZOLPIDEM TARTRATE 5 MG TABLET PO PRN (16:33)
[2018-11-13] MEDS ORDERED: MORPHINE 4 MG/ML SYR IV PRN (16:33)
[2018-11-13] MEDS ORDERED: ALPRAZOLAM 0.25 MG TABLET PO PRN (16:33)
[2018-11-13] MEDS ORDERED: ACETAMINOPHEN 500 MG TAB PO PRN (16:33)
[2018-11-13] MEDS ORDERED: NITROGLYCERIN 0.4 MG/TAB SL PRN (16:42)
[2018-11-13 17:15] VITALS: BMI 41.5
[2018-11-13] MEDS: METOPROLOL TAR 25 MG TAB PO SCH (17:32)
[2018-11-13] MEDS: ENOXAPARIN 40 MG/0.4 ML SQ SCH (17:33)
[2018-11-13] MEDS ORDERED: ATORVASTATIN 40 MG TAB PO SCH (21:00)
--- NOTE | 2018-11-13 22:56 | EKG ---
Test Date: 2018-11-13 Test Time: 13:03:16 Field Marketing Associate: MAIA MEASUREMENT RESULTS: Intervals: Rate: 78 MT: 152 QRSD: 74 QT: 400 QTc: 456 [place]: P: 35 MT: 152 QRS: 11 T: 53 INTERPRETIVE STATEMENTS: Normal sinus rhythm Normal ECG No previous ECG available for comparison Electronically Signed On 11-13-18 22:56:12 [employer] by Samy Man
--- NOTE | 2018-11-14 02:38 | HP ---
Date of Admission: 11/13/2018 Chief Complaint: Chest pain. Custom Miller: Dr. Mckinney with Cardiology. History Of Present Illness: The patient is a 43-year-old female with past medical history of gastroe sophageal reflux disease secondary to hiatal hernia, who was in her usual state of health until the d ay prior to admission when the patient had sudden onset of nausea, vomiting with bilious vomiting x1, uncomfortable feeling, some epigastric and upper chest tightness along with some worsening symptoms including shortness of breath. The patient otherwise denies any diaphoresis, cough, fever, or chills . The patient's chest pain got worse at work this morning, nonradiating, substernal. The patient do es report a previous history of stress test 15-20 years ago, which was negative. The patient at that time was found to have pleurisy. The patient's pain was moderate, progressive. The patient does re port some ongoing low-grade fevers, however, states that this is her normal. The patient came into [facility] ER for further evaluation. Upon arrival, the patient's initial workup was negative including trop onin and EKG. The patient was then referred for admission for rule out acute coronary syndrome. Whe n seen in the ER, she was awake, alert, and oriented x3, in some mild distress. Past Medical History: Hiatal hernia, migraine headaches, and gastroesophageal reflux disease. Surgical History: Tonsillectomy, , hysterectomy, and cholecystectomy. Allergies: NO KNOWN DRUG ALLERGIES. Medications: Nexium 40 mg daily. Social History: The patient denies any tobacco use. Does drink occasionally. The patient is marrie d. 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 Family History: The patient states several male relatives have of complications of [place] in their 40s. No first-degree male relatives have , however, before the age of 40. Her father does have heart failure and other heart conditions. Review of Systems: An 11-point system reviewed, negative except as per HPI. Physical Examination: Vital Signs: Pulse 72, blood pressure 109/72, O2 99% on room air, temperature 97.8, and respirations 18. Laboratory Data: Sodium 139, potassium 3.8, chloride 108, CO2 23, BUN 9, creatinine 1.11, glucose 93 , and calcium 8.7. Troponin less than 0.02. BNP 124. WBC 9.7, H and H 14.7 and 42.8, platelets 411 , and neutrophils 61%. Assessment And Plan: A 43-year-old female with: 1.Chest pain, rule out ACS. Initial cardiac enzymes and EKGs negative. We will obtain serial cardi ac enzymes and EKG p.r.n. We will start on chest pain guidelines with beta-cathy, XAVIER inhibitor, s tatin, and aspirin. Cardiology has been consulted. We will likely have stress test in the a.m. 2.Morbid obesity, BMI 41. 3.Gastroesophageal reflux disease secondary to hiatal hernia. We will continue with PPI. 4.GI and DVT prophylaxis with PPI and Lovenox. Admit the patient to Med-Surg, place as observation. We will obtain lipid panel in the a.m. /MODL Voice ID: [id number]
[2018-11-14 05:56] LABS: Absolute Neutrophil 5.7 K/uL (1.8-8.0); Basophils % 0.5 % (0-1.3); Eosinophils % 0.9 % (0-4.4); Hematocrit 39.4 % (36.0-45.0); Lymphocytes % 30.3 % (15.3-44.8); MPV 9.1 fL (7.6-11.3); Monocytes % 10.2 % (3.3-12.3); RBC Red Blood Cell Count 4.56 M/uL (3.86-4.86)
[2018-11-14] MEDS ORDERED: PANTOPRAZOLE 40MG TABLET PO SCH (07:30)
[2018-11-14] MEDS ORDERED: ASPIRIN EC 81 MG TAB PO SCH (09:00)
[2018-11-14] MEDS ORDERED: HOME MED 1 EA UNK (Esomeprazole Mag Trihydrate [Nexium] 40 MG) PO SCH (09:00)
[2018-11-14] MEDS ORDERED: LISINOPRIL 10 MG TAB PO SCH (09:00)
[2018-11-14] MEDS: METOPROLOL TAR 25 MG TAB PO SCH (09:00)
[2018-11-14] MEDS: ENOXAPARIN 40 MG/0.4 ML SQ SCH (10:25)
--- NOTE | 2018-11-14 12:02 | ECHO ---
HEIGHT: 5 ft 5 in WEIGHT: 249 lb 7.68 oz DATE OF STUDY: 11/14/[address]: Marika Stevens MD 2-DIMENSIONAL: YES M.MODE: YES DOPPLER: YES COLOR FLOW: YES TDS: NO PORTABLE: NO DEFINITY: NO BUBBLE STUDY: NO DIAGNOSIS: CHEST PAIN CARDIAC HISTORY: CATHERIZATION: NO SURGERY: NO PROSTHETIC VALVE: NO PACEMAKER: NO MEASUREMENTS (cm) DIASTOLIC (NORMALS) SYSTOLIC (NORMALS) IVSd 0.9 (0.6-1.2) LA Diam 3.6 (1.9-4.0) LVEF 56% LVIDd 4.6 (3.5-5.7) LVIDs 3.3 (2.0-3.5) %FS 29% LVPWd 1.0 (0.6-1.2) Ao Diam 2.9 (2.0-3.7) 2 DIMENSIONAL ASSESSMENT: RIGHT ATRIUM: NORMAL LEFT ATRIUM: NORMAL RIGHT VENTRICLE: NORMAL LEFT VENTRICLE: NORMAL TRICUSPID VALVE: NORMAL MITRAL VALVE: NORMAL PULMONIC VALVE: NORMAL AORTIC VALVE: NORMAL PERICARDIAL EFFUSION: NONE AORTIC ROOT: NORMAL LEFT VENTRICULAR WALL MOTION: NORMAL. DOPPLER/COLOR FLOW: PHYSIOLOGIC TRICUSPID REGURGITATION. NORMAL RIGHT VENTRICULAR SYSTOLIC PRESSURE. COMMENTS: NORMAL 2D ECHO WITH DOPPLER. TECHNOLOGIST: JULIET MISTRY
--- NOTE | 2018-11-14 14:18 | TREADMILL ---
70% H.R.: 124 85% H.R.: 150 90% H.R.: 159 100% H.R.: 177 DX: CHEST PAIN Date of Study: 11/14/18 Ht: 5 5 Wt: 249 lb 7.68 oz Consulting Physician: MICHAEL MEDICATIONS: TYLENOL, XANAX, ASPIRIN, LIPITOR, LOVENOX, PRINIVIL, LOPRESSOR, NITROSTAT, PROTONIX, AMBIEN HISTORY: 43 YEAR OLD FEMALE WITH COMPLAINTS OF CHEST PAIN. MEDICAL HISTORY OF HIATAL HERNIA, MIRGRAINES. PHYSICIAL EXAMINATION: RESTING B.P.: 104/76 RESTING H.R.: 78 RESTING EKG: NORMAL. PROTOCOL: ZEINAB ROUTINE EXERCISE TIME: 7:30 MAXIMUM HEART RATE: 155 87% OF PREDICTED B.P. AT PEAK STRESS: 142/86 H.R. AT 1 MINUTE POST EXERCISE: 139 IMPRESSION: STRESS TEST STOPPED DUE TO TARGET HEART RATE REACHED AND FATIGUE PER PROTOCOL. NO SUPRA VENTRICULAR TACHYCARDIA, NO VENTRICULAR TACHYCARDIA. NO PREMATURE VENTRICULAR COMPLEXES. CHEST PAIN 4/10. NO ST DEPRESSION WITH STRESS. NORMAL STRESS TEST.
--- NOTE | 2018-11-14 14:56 | CON ---
Chief Complaint: Chest pain. History Of Present Illness: Ms. Looney stated she felt like she had been run over by a truck Eventtus all over. One of the pains was chest pain. It seems that it is a bit all over the body and a berkley le bit better today. The patient has not had fevers, chills, or sweats. No known exposure to flu. No history of heart disease. She has had several operations including gallbladder and secti on. Outpatient medications are Nexium that she takes over the counter. No prescription medications. She uses no tobacco. Rare alcohol. No recreational drugs. No previous history of heart disease. Physical Examination: Vital Signs: 5 feet 5 inches, 249 pounds. HEENT: Unremarkable. Lungs: Clear. Heart: Exam within normal limits. Abdomen: Soft. Extremities: Normal. EKG normal. Troponins normal. Recommendation: I will recommend the patient do a treadmill test. Her echocardiogram likewise is no rmal. So if the treadmill is normal, she could be discharged home and she should perhaps have throat swab to see if she has influenza. MAXIMILIAN Voice ID: [id number] Report ID: [id number]
[2018-11-14 16:05] VITALS: O2SAT 95
[2018-11-14 17:21] VITALS: BP 106/68; TEMP 97.8
--- NOTE | 2018-11-15 06:54 | DS ---
Date of Discharge: 11/14/2018 Consultants: Dr. Man with cardiology. Procedures: On 11/14/2018, exercise stress test was negative. Admitting Diagnoses: 1.Chest pain. 2.Morbid obesity. Body mass index of 41. 3.Gastroesophageal reflux disease secondary to hiatal hernia. Discharge Diagnoses: 1.Atypical chest pain. 2.Morbid obesity. Body mass index of 41. 3.Gastroesophageal reflux disease secondary to hiatal hernia. Hospital Course: The patient is a 43-year-old female who comes in with chest pain, complains of naus ea, vomiting, feeling like she has been run over a truck. The patient also reported some chest pain which was substernal. The patient was admitted to the hospital for further evaluation. Her initial workup was negative. Repeat cardiac enzymes and EKG did not show any changes and ACS was ruled out. The patient had normal white blood cell count. Dr. Man with Cardiology was consulted and exercis e stress test was obtained which was negative. Echocardiogram was also done, which showed ejection f raction of 56% and no wall motion abnormality. The patient was then cleared for discharge from consu ltant's standpoint. The patient will be discharged home in a stable condition. Activity: As tolerated. Medications: As per medication list. Diet: Heart healthy. Followup: Follow up with PCP in 2-3 days. Return to the ER for worsening condition. Follow up with Dr. Man as needed. Physical Examination: General: Awake, alert, oriented x3. No acute distress. Morbidly obese female. CV: S1, S2. Regular rate and rhythm. No murmurs. Respiratory: Moving air well bilaterally. No wheezing. Gastrointestinal: Abdomen is soft, nontender, nondistended. Positive bowel sounds. Extremities: No clubbing, cyanosis, or edema. Neurologic: Nonfocal. SA/MODL Voice ID: [id number] Report ID: [id number]
== END 2018-11-14 17:19 | disposition home or self-care (01) ==
LOC: ER 13:03 → ERHOLD 15:40 → 2ND 16:33
PROVIDERS: ADMIT Family Medicine; ATTEND Family Medicine
DX: R07.89 Other chest pain (principal); E66.01 Morbid (severe) obesity due to excess calories; Z68.41 Body mass index [BMI] 40.0-44.9, adult; K21.9 Gastro-esophageal reflux disease without esophagitis; K44.9 Diaphragmatic hernia without obstruction or gangrene
CPT/HCPCS: 36415; 71045; 80048; 80061; 83880; 84484; 85025; 87804; 93005; 93017; 93306; 94760; 96374; 96375; 99285; G0378; J1650; J2405

== ENCOUNTER 2019-01-21 12:39 | Inpatient (IN) | payer OTHER ==
--- OUTSIDE RECORDS SUMMARY | 2019-01-21 12:41 | XMS REPORT ---
:1975 [facility] Address [address] [place] [address] [address]. [address] [place] [address] Care Team Providers Name Role Phone Unavailable Unavailable Unavailable Problems This patient has no known problems. Allergies, Adverse Reactions, Alerts This patient has no known allergies or adverse reactions. Medications This patient has no known medications.
[2019-01-21] MEDS ORDERED: ALBUTEROL 2.5 MG/3 ML NEB SOL ONE (14:39)
--- NOTE | 2019-01-21 14:39 | RAD REPORT ---
EXAM DESCRIPTION: Lesly Single View3 2:31 pm CLINICAL HISTORY: Shortness of breath COMPARISON: November 2018 FINDINGS: The lungs appear clear of acute infiltrate. The heart is normal size IMPRESSION: No acute abnormalities displayed
[2019-01-21 15:02] LABS: Absolute Lymphocytes (CBC) 1.1 K/uL (0.7-4.9); Absolute Monocytes 1.1 K/uL (0.1-1.3); Absolute Neutrophil 3.5 K/uL (1.8-8.0); Basophils % 0.2 % (0-1.3); Eosinophils % 0.4 % (0-4.4); Hematocrit 42.5 % (36.0-45.0); Lymphocytes % 19.5 % (15.3-44.8); MPV 9.3 fL (7.6-11.3); Monocytes % 18.4 % (3.3-12.3)
[2019-01-21] MEDS ORDERED: ACETAMINOPHEN 325 MG TABLET ONE (15:03)
[2019-01-21] MEDS ORDERED: NA CHLORIDE 0.9% 1,000 ML ONE ×2 (15:03→17:28)
[2019-01-21] MEDS ORDERED: Levofloxacin500mg IV 500 MG/100 ML BAG IV ONE (15:03)
[2019-01-21 15:05] LABS: Protime INR 1.2
--- NOTE | 2019-01-21 15:07 | EKG ---
Test Date: 2019-01-21 Test Time: 12:56:30 Publicity Expert: MAIA MEASUREMENT RESULTS: Intervals: Rate: 120 WY: 124 QRSD: 72 QT: 336 QTc: 474 Webster: P: 33 WY: 124 QRS: 4 T: 64 INTERPRETIVE STATEMENTS: Sinus tachycardia with occasional premature ventricular complexes Low voltage QRS Cannot rule out Anterior infarct, age undetermined Abnormal ECG Compared to ECG 11/13/2018 13:03:16 Ventricular premature complex(es) now present Low QRS voltage now present Myocardial infarct finding now present Sinus rhythm no longer present Electronically Signed On 01-21-19 15:07:16 CDT by Samy Man
[2019-01-21 16:22] LABS: Urine Blood NEGATIVE (NEG); Urine Glucose NEGATIVE (NEG); Urine Protein 1+ (NEG); Urine Specific Gravity >1.030 (1.005-1.030); Urine pH 5.5 (5.0-7.0)
[2019-01-21 16:35] LABS: ALT/SGPT 27 U/L (12-78); AST/SGOT 27 U/L (15-37); Albumin 3.8 g/dL (3.4-5.0); Alkaline Phosphatase 73 U/L (45-117); BUN Blood Urea Nitrogen 11 mg/dL (7-18); Bicarbonate 23 mmol/L (21-32); Bilirubin Direct 0.1 mg/dL (0-0.2); Bilirubin Total 0.7 mg/dL (0.2-1.0); Glucose Level 94 mg/dL (74-106); Magnesium 2.1 mg/dL (1.8-2.4); NT PRO-BNP 82 pg/mL (<125); Potassium 3.7 mmol/L (3.5-5.1); Protein, Total 7.4 g/dL (6.4-8.2); Sodium Level 139 mmol/L (136-145); Troponin (Emerg Dept Use Only) < 0.02 ng/mL (0.0-0.045)
[2019-01-21] MEDS ORDERED: OSELTAMIVIR 75 MG CAP ONE (16:53)
[2019-01-21 17:01] LABS: Blood Morphology Comment NOT SEEN (NOT SEEN); Platelet Estimate ADEQ; Urine White Blood Cell Casts OK
--- NOTE | 2019-01-21 17:08 | EDPHYS ---
Physician Documentation [facility] Name: Dara Looney Age: 43 yrs Sex: Female : 1975 Arrival Date: 01/21/2019 Time: 12:40 Bed 28 Private MD: ED Physician Gabriel Dubois HPI: 01/21 14:02 This 43 yrs old Female presents to ER via Ambulatory with complaints of jr8 Fever, Pain All Over, Shortness Of Breath. 14:02 Onset: The symptoms/episode began/occurred acutely, 2 day(s) ago. Modifying factors: jr8 there are no obvious modifying factors. Associated signs and symptoms: Pertinent positives: arthralgias, chills, cough, shortness of breath. Severity of symptoms: At their worst the symptoms were moderate in the emergency department the symptoms are unchanged. The patient has not experienced similar symptoms in the past. The patient has not recently seen a physician. Patient stated that she has had body aches, chills, cough, fever for past two days. Stated that she is having chest tightness now and difficulty with breathing . CLIENT LIAISON: 13:20 LMP N/A - Hysterectomy ca1 Historical: - Allergies: 12:55 No Known Allergies; hb - Home Meds: 12:55 Nexium 40 mg Oral cpDR 1 cap once daily [Active]; hb - PMHx: 12:55 hiatal hernia; Migraines; hb - PSHx: 12:55 Tonsillectomy; ; Hysterectomy; Cholecystectomy; hb - Immunization history:: Adult Immunizations up to date. - Social history:: Smoking status: Patient/guardian denies using tobacco. - Ebola Screening: : No symptoms or risks identified at this time. ROS: 14:02 Eyes: Negative for injury, pain, redness, and discharge, ENT: Negative for injury, jr8 pain, and discharge, Neck: Negative for injury, pain, and swelling, Abdomen/GI: Negative for abdominal pain, nausea, vomiting, diarrhea, and constipation, Back: Negative for injury and pain, MS/Extremity: Negative for injury and deformity, Skin: Negative for injury, rash, and discoloration, Neuro: Negative for headache, weakness, numbness, tingling, and seizure. 14:02 Constitutional: Positive for body aches, chills, fever. 14:02 Cardiovascular: Positive for chest pain, Negative for edema, orthopnea, palpitations, paroxysmal nocturnal dyspnea. 14:02 Respiratory: Positive for cough, shortness of breath. Exam: 14:02 Eyes: Pupils equal round and reactive to light, extra-ocular motions intact. Lids and jr8 lashes normal. Conjunctiva and sclera are non-icteric and not injected. Cornea within normal limits. Periorbital areas with no swelling, redness, or edema. ENT: Nares patent. No nasal discharge, no septal abnormalities noted. Tympanic membranes are normal and external auditory canals are clear. Oropharynx with no redness, swelling, or masses, exudates, or evidence of obstruction, uvula midline. Mucous membranes moist. Neck: Trachea midline, no thyromegaly or masses palpated, and no cervical lymphadenopathy. Supple, full range of motion without nuchal rigidity, or vertebral point tenderness. No Meningismus. Cardiovascular: Sinus Tachycardia with a normal S1 and S2. No gallops, murmurs, or rubs. Normal PMI, no JVD. No pulse deficits. Abdomen/GI: Soft, non-tender, with normal bowel sounds. No distension or tympany. No guarding or rebound. No evidence of tenderness throughout. Back: No spinal tenderness. No costovertebral tenderness. Full range of motion. Skin: Warm, dry with normal turgor. Normal color with no rashes, no lesions, and no evidence of cellulitis. MS/ Extremity: Pulses equal, no cyanosis. Neurovascular intact. Full, normal range of motion. Neuro: Awake and alert, GCS 15, oriented to person, place, time, and situation. Cranial nerves II-XII grossly intact. Motor strength 5/5 in all extremities. Sensory grossly intact. Cerebellar exam normal. Normal gait. 14:02 Respiratory: the patient does not display signs of respiratory distress, Respirations: normal, symetrical, no use of accessory muscles, no grunting, no evidence of nasal flaring, no prolonged exhalations, no pursed lip breathing, no retractions, no shallow respirations, no splinting, no tachypnea, Breath sounds: rales, that are mild, are heard in the right posterior lower lobe. Vital Signs: 12:54 BP 100 / 75; Pulse 119; Resp 20; Temp 100.1; Pulse Ox 98% on R/A; Pain 7/10; hb 13:15 BP 116 / 85; Pulse 95; Resp 23; Pulse Ox 94% on R/A; ca1 13:45 BP 105 / 76; Pulse 100; Resp 29; Pulse Ox 97% on 2 lpm NC; ca1 14:00 BP 111 / 78; Pulse 98; Resp 28; Pulse Ox 95% on 2 lpm NC; ca1 14:21 BP 114 / 86; Pulse 98; Resp 26; Pulse Ox 99% on 2 lpm NC; ca1 14:45 BP 104 / 72; Pulse 111; Resp 25; Pulse Ox 99% on 2 lpm NC; ca1 15:00 BP 108 / 74; Pulse 101; Resp 31; Pulse Ox 100% on 2 lpm NC; ca1 15:15 BP 106 / 72; Pulse 118; Resp 27; Pulse Ox 99% on 2 lpm NC; ca1 15:30 BP 108 / 73; Pulse 116; Resp 26; Pulse Ox 97% on 2 lpm NC; ca1 15:40 BP 108 / 73; Pulse 113; Resp 29; Temp 99.3; Pulse Ox 98% on 2 lpm NC; ca1 15:45 BP 100 / 73; Pulse 114; Resp 26; Pulse Ox 96% on 2 lpm NC; ca1 16:00 BP 111 / 76; Pulse 119; Resp 26; Pulse Ox 98% on 2 lpm NC; ca1 16:40 Temp 99.4(O); rv 17:00 BP 102 / 78; Pulse 118; Resp 30; Pulse Ox 96% on 2 lpm NC; ca1 17:20 BP 104 / 75; Pulse 115; Resp 29; Temp 99.2; Pulse Ox 96% on R/A; ca1 18:47 BP 101 / 76; Pulse 119; Resp 32; Temp 99.1(O); Pulse Ox 99% ; lt1 19:15 BP 108 / 82; Pulse 118; Resp 18; Pulse Ox 100% on 3 lpm NC; ca1 19:45 BP 108 / 79; Pulse 102; Resp 21; Pulse Ox 100% on 3 lpm NC; ca1 20:00 BP 102 / 72; Pulse 108; Resp 23; Pulse Ox 100% on 3 lpm NC; ca1 20:20 BP 110 / 78; Pulse 107; Resp 22; Temp 99.4(O); Pulse Ox 99% on 3 lpm NC; ca1 MDM: 12:58 Patient medically screened. [facility] 17:05 Data reviewed: vital signs, nurses notes, lab test result(s), EKG, radiologic studies, [facility] plain films. Data interpreted: Pulse oximetry: on room air is 94 %. Interpretation: borderline. Counseling: I had a detailed discussion with the patient and/or guardian regarding: the historical points, exam findings, and any diagnostic results supporting the discharge/admit diagnosis, lab results, radiology results, the need for further work-up and treatment in the hospital. ED course: Patient still remains tachypneic and with tachycardia post fluids and on oxygen. Will bring in for influenza and tachycardia. Further r/o cardiac injury from virus . 01/21 13:49 Order name: Basic Metabolic Panel; Complete Time: 16:36 [facility] 01/21 13:49 Order name: CBC with Diff; Complete Time: 17:03 [facility] 01/21 13:49 Order name: LFT's; Complete Time: 16:36 [facility] 01/21 13:49 Order name: Magnesium; Complete Time: 16:40 [facility] 01/21 13:49 Order name: NT PRO-BNP; Complete Time: 16:40 [facility] 01/21 13:49 Order name: PT-INR; Complete Time: 15:18 [facility] 01/21 13:49 Order name: Troponin (emerg Dept Use Only); Complete Time: 16:36 [facility] 01/21 13:49 Order name: XRAY Chest (1 view); Complete Time: 14:42 [facility] 01/21 13:49 Order name: Influenza Screen (a \T\ B); Complete Time: 15:04 [facility] 01/21 13:49 Order name: Blood Culture Adult (2) [facility] 01/21 13:49 Order name: Procalcitonin; Complete Time: 16:05 [facility] 01/21 15:08 Order name: CBC Smear Scan; Complete Time: 17:03 EDNY 01/21 16:16 Order name: Urine Dipstick--Ancillary (enter results); Complete Time: 16:28 bd 01/21 16:16 Order name: Urine --Ancillary (enter results); Complete Time: 16:28 bd 01/21 13:49 Order name: EKG; Complete Time: 13:50 [facility] 01/21 13:49 Order name: Cardiac monitoring; Complete Time: 15:41 [facility] 01/21 13:49 Order name: EKG - Nurse/Tech; Complete Time: 15:41 01/21 13:49 Order name: IV Saline Lock; Complete Time: 15:41 01/21 13:49 Order name: Labs collected and sent; Complete Time: 15:41 01/21 13:49 Order name: O2 Per Protocol; Complete Time: 15:41 01/21 13:49 Order name: O2 Sat Monitoring; Complete Time: 15:41 Administered Medications: 14:22 Drug: Tylenol 650 mg Route: PO; ca1 16:44 Follow up: Response: No adverse reaction; Temperature is decreased ca1 14:23 Drug: Albuterol 2.5 mg Route: Inhalation; ca1 14:24 Drug: NS 0.9% 1000 ml Route: IV; Rate: 1000 ml; Site: right antecubital; ca1 16:44 Follow up: Response: No adverse reaction; IV Status: Completed infusion ca1 14:43 Drug: Albuterol 2.5 mg Route: Inhalation; ca1 15:02 Drug: LevaQUIN 500 mg Volume: 100 ml; Route: IVPB; Infused Over: 60 mins; Site: right ca1 antecubital; 16:45 Follow up: IV Status: Completed infusion ca1 15:05 Drug: Albuterol 2.5 mg Route: Inhalation; ca1 16:45 Follow up: Response: No adverse reaction ca1 16:44 Drug: Tamiflu 75 mg Route: PO; ca1 17:19 Follow up: Response: No adverse reaction ca1 17:17 Drug: NS 0.9% 1000 ml Route: IV; Rate: 1000 ml; Site: right antecubital; ca1 18:30 Follow up: IV Status: Completed infusion ca1 19:22 Drug: Zofran 4 mg Route: IVP; Site: right antecubital; ca1 19:45 Follow up: Response: No adverse reaction; Nausea is decreased ca1 Disposition: 01/22 06:45 Co-signature as Attending Physician, Gabriel Dubois MD I agree with the assessment and mable plan of care. Disposition: 01/21/19 17:08 Hospitalization ordered by Mary Gonzalez for Inpatient Admission. Preliminary diagnosis are Acute respiratory failure with hypoxia, Influenza due to identified novel influenza A virus, Dehydration. - Bed requested for Telemetry/MedSurg (Inpatient). - Status is Inpatient Admission. ca1 - Condition is Fair. - Problem is new. - Symptoms have improved. UTI on Admission? No Signatures: Dispatcher [employer] EDMS Lin Mccauley RN RN dw Gabriel Dubois MD MD cha Roszak, Josh, PA PA jr8 Callie Khan, RN RN Blanca Page RN RN ca1 Corrections: (The following items were deleted from the chart) 01/21 18:39 17:08 Hospitalization Ordered by Mary Gonzalez MD for Inpatient Admission. Preliminary dw diagnosis is Acute respiratory failure with hypoxia; Influenza due to identified novel influenza A virus; Dehydration. Bed requested for Telemetry/MedSurg (Inpatient). Status is Inpatient Admission. Condition is Fair. Problem is new. Symptoms have improved. UTI on Admission? No. jr8 20:48 18:39 01/21/2019 17:08 Hospitalization Ordered by Mary Gonzalez MD for Inpatient ca1 Admission. Preliminary diagnosis is Acute respiratory failure with hypoxia; Influenza due to identified novel influenza A virus; Dehydration. Bed requested for Telemetry/MedSurg (Inpatient). Status is Inpatient Admission. Condition is Fair. Problem is new. Symptoms have improved. UTI on Admission? No. dw
--- NOTE | 2019-01-21 17:08 | ER ---
Nurse's Notes [facility] Name: Dara Looney Age: 43 yrs Sex: Female : 1975 Arrival Date: 01/21/2019 Time: 12:40 Bed 28 Private MD: Diagnosis: Acute respiratory failure with hypoxia;Influenza due to identified novel influenza A virus;Dehydration Presentation: 01/21 12:53 Presenting complaint: SOB, left sided chest "tightness", nonproductive cough, and fever hb x 3 days TMAX 103. Transition of care: patient was not received from another setting of care. Onset of symptoms was January 19, 2019. Risk Assessment: Do you want to hurt yourself or someone else? Patient reports no desire to harm self or others. Care prior to arrival: None. 12:53 Method Of Arrival: Ambulatory hb 12:53 Acuity: SHEILA 3 hb 13:10 Initial Sepsis Screen: Does the patient meet any 2 criteria? RR > 20 per min. Temp ca1 <36.0*C (96.8*F)) or > 38.3*C (100.9*F). HR > 90 bpm. Does the patient have a suspected source of infection? Yes: Productive cough/pneumonia. Triage Assessment: 13:10 Respiratory: the patient has moderate shortness of breath. 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 - Social history:: Smoking status: Patient/guardian denies using tobacco. - Ebola Screening: : No symptoms or risks identified at this time. Screenin:05 Abuse screen: Denies threats or abuse. Denies injuries from another. Nutritional ca1 screening: No deficits noted. Tuberculosis screening: No symptoms or risk factors identified. Fall Risk IV access (20 points). Assessment: 13:05 General: Appears in no apparent distress. uncomfortable, ill, Behavior is calm, ca1 cooperative, appropriate for age. Pain: Complains of pain in chest and right posterior lower lobe Pain does not radiate. Pain currently is 7 out of 10 on a pain scale. Quality of pain is described as sharp, Pain began 2-3 days ago. Neuro: Level of Consciousness is awake, alert, obeys commands, Oriented to person, place, time, situation. Cardiovascular: Heart tones S1 S2 present Capillary refill < 3 seconds Patient's skin is warm and dry. Pulses are all present. Rhythm is sinus tachycardia. Respiratory: Reports shortness of breath on exertion cough that is non-productive, Airway is patent Respiratory effort is even, unlabored, Respiratory pattern is symmetrical, tachypnea Breath sounds are clear bilaterally. Onset: The symptoms/episode began/occurred gradually. GI: Abdomen is round non-distended, Bowel sounds present X 4 quads. Abd is soft and non tender X 4 quads. : No deficits noted. No signs and/or symptoms were reported regarding the genitourinary system. EENT: No deficits noted. No signs and/or symptoms were reported regarding the EENT system. Derm: Skin is intact, is healthy with good turgor, Skin is pink, warm \\T\\ dry. Musculoskeletal: Circulation, motion, and sensation intact. Capillary refill < 3 seconds. 14:00 Reassessment: Patient appears in no apparent distress at this time. Patient and/or ca1 family updated on plan of care and expected duration. Pain level reassessed. Patient is alert, oriented x 3, equal unlabored respirations, skin warm/dry/pink. 15:05 Reassessment: Patient appears in no apparent distress at this time. Patient and/or ca1 family updated on plan of care and expected duration. Pain level reassessed. Patient is alert, oriented x 3, equal unlabored respirations, skin warm/dry/pink. 16:00 Reassessment: Patient appears in no apparent distress at this time. Patient and/or ca1 family updated on plan of care and expected duration. Pain level reassessed. Patient is alert, oriented x 3, equal unlabored respirations, skin warm/dry/pink. 17:02 Reassessment: Patient appears in no apparent distress at this time. Patient and/or ca1 family updated on plan of care and expected duration. Pain level reassessed. Patient is alert, oriented x 3, equal unlabored respirations, skin warm/dry/pink. Pt still complains of SOB and HR elevated on monitor. 18:00 Reassessment: Patient appears in no apparent distress at this time. Patient and/or ca1 family updated on plan of care and expected duration. Pain level reassessed. Patient is alert/active/playful, equal unlabored respirations, skin warm/dry/pink. 19:00 Reassessment: Patient appears in no apparent distress at this time. Patient and/or ca1 family updated on plan of care and expected duration. Pain level reassessed. Patient is alert, oriented x 3, equal unlabored respirations, skin warm/dry/pink. 20:00 Reassessment: Patient appears in no apparent distress at this time. Patient and/or ca1 family updated on plan of care and expected duration. Pain level reassessed. Patient is alert, oriented x 3, equal unlabored respirations, skin warm/dry/pink. Patient states symptoms have improved. Vital Signs: 12:54 BP 100 / 75; Pulse 119; Resp 20; Temp 100.1; Pulse Ox 98% on R/A; Pain 7/10; hb 13:15 BP 116 / 85; Pulse 95; Resp 23; Pulse Ox 94% on R/A; ca1 13:45 BP 105 / 76; Pulse 100; Resp 29; Pulse Ox 97% on 2 lpm NC; ca1 14:00 BP 111 / 78; Pulse 98; Resp 28; Pulse Ox 95% on 2 lpm NC; ca1 14:21 BP 114 / 86; Pulse 98; Resp 26; Pulse Ox 99% on 2 lpm NC; ca1 14:45 BP 104 / 72; Pulse 111; Resp 25; Pulse Ox 99% on 2 lpm NC; ca1 15:00 BP 108 / 74; Pulse 101; Resp 31; Pulse Ox 100% on 2 lpm NC; ca1 15:15 BP 106 / 72; Pulse 118; Resp 27; Pulse Ox 99% on 2 lpm NC; ca1 15:30 BP 108 / 73; Pulse 116; Resp 26; Pulse Ox 97% on 2 lpm NC; ca1 15:40 BP 108 / 73; Pulse 113; Resp 29; Temp 99.3; Pulse Ox 98% on 2 lpm NC; ca1 15:45 BP 100 / 73; Pulse 114; Resp 26; Pulse Ox 96% on 2 lpm NC; ca1 16:00 BP 111 / 76; Pulse 119; Resp 26; Pulse Ox 98% on 2 lpm NC; ca1 16:40 Temp 99.4(O); rv 17:00 BP 102 / 78; Pulse 118; Resp 30; Pulse Ox 96% on 2 lpm NC; ca1 17:20 BP 104 / 75; Pulse 115; Resp 29; Temp 99.2; Pulse Ox 96% on R/A; ca1 18:47 BP 101 / 76; Pulse 119; Resp 32; Temp 99.1(O); Pulse Ox 99% ; lt1 19:15 BP 108 / 82; Pulse 118; Resp 18; Pulse Ox 100% on 3 lpm NC; ca1 19:45 BP 108 / 79; Pulse 102; Resp 21; Pulse Ox 100% on 3 lpm NC; ca1 20:00 BP 102 / 72; Pulse 108; Resp 23; Pulse Ox 100% on 3 lpm NC; ca1 20:20 BP 110 / 78; Pulse 107; Resp 22; Temp 99.4(O); Pulse Ox 99% on 3 lpm NC; ca1 ED Course: 12:40 Patient arrived in ED. as 12:54 Triage completed. hb 12:54 Arm band placed on. hb 12:57 EKG completed in triage. Results shown to MD. hb 12:58 Maged Ceja PA is PHCP. jr8 12:58 Gabriel Dubois MD is Attending Physician. jr8 12:59 Blanca Page RN is Primary Nurse. ca1 13:05 Patient has correct armband on for positive identification. Placed in gown. Bed in low ca1 position. Call light in reach. Side rails up X2. embedded case manager on. Pulse ox on. NIBP on. Head of bed elevated. 13:27 EKG done, by automation technologist. reviewed by Maged FIGUEROA. 3 14:15 X-ray completed. Portable x-ray completed in exam room. Patient tolerated procedure mh1 well. 14:30 XRAY Chest (1 view) In Process Unspecified. EDMS 14:30 Missed attempt(s): 20 gauge in right forearm. ca1 14:35 Inserted saline lock: 20 gauge in right antecubital area, using aseptic technique. ca1 Blood collected. 17:07 Mary Gonzalez MD is Hospitalizing Provider. jr8 20:47 No provider procedures requiring assistance completed. Patient admitted, IV remains in ca1 place. Administered Medications: 14:22 Drug: Tylenol 650 mg Route: PO; ca1 16:44 Follow up: Response: No adverse reaction; Temperature is decreased ca1 14:23 Drug: Albuterol 2.5 mg Route: Inhalation; ca1 14:24 Drug: NS 0.9% 1000 ml Route: IV; Rate: 1000 ml; Site: right antecubital; ca1 16:44 Follow up: Response: No adverse reaction; IV Status: Completed infusion ca1 14:43 Drug: Albuterol 2.5 mg Route: Inhalation; ca1 15:02 Drug: LevaQUIN 500 mg Volume: 100 ml; Route: IVPB; Infused Over: 60 mins; Site: right ca1 antecubital; 16:45 Follow up: IV Status: Completed infusion ca1 15:05 Drug: Albuterol 2.5 mg Route: Inhalation; ca1 16:45 Follow up: Response: No adverse reaction ca1 16:44 Drug: Tamiflu 75 mg Route: PO; ca1 17:19 Follow up: Response: No adverse reaction ca1 17:17 Drug: NS 0.9% 1000 ml Route: IV; Rate: 1000 ml; Site: right antecubital; ca1 18:30 Follow up: IV Status: Completed infusion ca1 19:22 Drug: Zofran 4 mg Route: IVP; Site: right antecubital; ca1 19:45 Follow up: Response: No adverse reaction; Nausea is decreased ca1 Outcome: 17:08 Decision to Hospitalize by Provider. jrDaniel 20:47 Admitted to Tele accompanied by tech, via stretcher, room 420, with oxygen, with chart, ca1 Report called to DENNIS Diamond 20:47 Condition: stable 20:47 Instructed on the need for admit. 20:48 Patient left the ED. ca1 Signatures: Dispatcher [employer] EDMS Uma Luciano mh1 Dorcas Shaw Josh, PA PA jr8 Callie Khan RN RN hb Montes, Shakira 3 Francisco J Mason RN RN rv Blanca Page RN RN ca1 Angela Paez lt1 Corrections: (The following items were deleted from the chart) 12:55 12:54 BP 100 / 75; Pulse 115bpm; Resp 20bpm; Pulse Ox 98% RA; Temp 100.1F; Pain 7/10; hbhb 16:21 15:40 BP 108 / 73; Pulse 113bpm; Resp 29bpm; Pulse Ox 98%; Temp 99.3F; lt1 ca1 20:47 17:02 Reassessment: Patient appears in no apparent distress at this time. Patient ca1 and/or family updated on plan of care and expected duration. Pain level reassessed. Patient is alert, oriented x 3, equal unlabored respirations, skin warm/dry/pink. ca1 20:47 20:00 Reassessment: Patient appears in no apparent distress at this time. Patient ca1 and/or family updated on plan of care and expected duration. Pain level reassessed. Patient is alert, oriented x 3, equal unlabored respirations, skin warm/dry/pink. ca1 23:31 14:30 Inserted saline lock: 20 gauge in right antecubital area, using aseptic ca1 technique. Blood collected. ca1 23:31 14:35 Missed attempt(s): 20 gauge in right forearm. ca1 ca1
[2019-01-21] MEDS ORDERED: ONDANSETRON 4 MG/2 ML VIAL ONE (19:31)
[2019-01-21] MEDS ORDERED: ONDANSETRON 4 MG/2 ML VIAL IV PRN (21:23)
[2019-01-21] MEDS ORDERED: ACETAMINOPHEN 500 MG TAB PO PRN (21:50)
[2019-01-21] MEDS: NA CHLORIDE 0.9% 1,000 ML IV SCH (21:54)
[2019-01-21] MEDS ORDERED: POTASSIUM CL SA 10 MEQ TAB PO ONE (22:04)
[2019-01-21] MEDS ORDERED: PROMETHAZINE 25 MG/ML VIAL IV PRN (22:39)
--- NOTE | 2019-01-21 23:01 | P.HP ---
Certification for Inpatient Patient admitted to: Inpatient With expected LOS: >2 Midnights Practitioner: I am a practitioner with admitting privileges, knowledge of patient current condition, hospital course, and medical plan of care. Services: Services provided to patient in accordance with Admission requirements found in Title 42 Section 412.3 of the Code of Federal Regulations Patient History Date of Service: 01/21/19 Reason for admission: influenza A infection History of Present Illness: Ms Looney is a 43 years old woman with history of Migraines and GERD, who start about 3 days ago with cough, generalized weakness and body ache. specially on her right flank, progressive SOB and fever 103.0F. She came to ED today, because her symptoms got worse. At arrival she was tachypneic, RR about 30, temp 100.1F, O2 sat 98% on RA. CXR shows no acute infiltrate. WBC WNL, procalcitonin normal lactate is still pending. Influenza A positive. Allergies No Known Allergies Allergy (Verified 06/06/16 09:13) Home medications list reviewed: Yes Home Medications: Esomeprazole Mag Trihydrate [Nexium] 40 mg PO DAILY 12/08/14 - Past Medical/Surgical History Diabetic: No -: GERD -: migraines -: Pleurisy -: Hysterectomy -: Gall bladder removal -: C section -: Tonsillectomy -: Mass removal from L breast - Family History Family History: Reviewed- Non-Contributory - Social History Smoking Status: Never smoker Alcohol use: Yes CD- Drugs: No Caffeine use: No Place of Residence: Home Review of Systems 10-point ROS is otherwise unremarkable Physical Examination - Vital Signs Temperature: 101.3 F Blood Pressure: 111/68 Pulse: 99 Respirations: 26 Pulse Ox (%): 100 - Physical Exam General: Alert, In no apparent distress HEENT: Atraumatic, PERRLA, Mucous membr. moist/pink, EOMI, Sclerae nonicteric Neck: Supple, 2+ carotid pulse no bruit, No LAD, Without JVD or thyroid abnormality Respiratory: Diminished, Rhonchi/gurgles Cardiovascular: Regular rate/rhythm, Normal S1 S2 Gastrointestinal: Normal bowel sounds, No tenderness Musculoskeletal: Tenderness (right flank tender to palpation) Integumentary: No rashes Neurological: Normal speech, Normal strength at 5/5 x4 extr, Normal tone, Normal affect Lymphatics: No axilla or inguinal lymphadenopathy - Studies Laboratory Data (last 24 hrs) 01/21/19 14:41: PT 14.1 H, INR 1.20 01/21/19 14:41: WBC 5.7, Hgb 14.6, Hct 42.5, Plt Count 301 01/21/19 14:41: Sodium 139, Potassium 3.7, BUN 11, Creatinine 1.13, Glucose 94, Magnesium 2.1, Total Bilirubin 0.7, AST 27, ALT 27, Alkaline Phosphatase 73 Microbiology Data (last 24 hrs): 01/21/19 14:41 Nasopharnyx Influenza Type A Antigen Screen - Final 01/21/19 14:41 Nasopharnyx Influenza Type B Antigen Screen - Final Assessment and Plan - Problems (Diagnosis) (1) Influenza A Current Visit: Yes Status: Acute (2) GERD (gastroesophageal reflux disease) Current Visit: Yes Status: Acute Qualifiers: Esophagitis presence: without esophagitis Qualified Code(s): K21.9 - Gastro -esophageal reflux disease without esophagitis (3) Migraines Current Visit: Yes Status: Acute Qualifiers: Migraine type: unspecified Status migrainosus presence: without status migrainosus Intractability: not intractable Qualified Code(s): G43.909 - Migraine, unspecified, not intractable, without status migrainosus - Plan Will admit the patient to the hospital due to influenza A infection. The patient was not vaccinated this year. Will continue with Oseltamivir and symptomatic treatment. - Advance Directives Does patient have a Living Will: No Does patient have a Durable POA for Healthcare: No - Code Status/Comfort Care Code Status Assessed: Yes Code Status: Full Code
[2019-01-21] MEDS ORDERED: NA CHLORIDE 0.9% 500 ML IV ONE (23:10)
[2019-01-22 01:27] VITALS: BMI 37.0
[2019-01-22] MEDS: NA CHLORIDE 0.9% 1,000 ML IV SCH ×3 (05:48→20:44)
[2019-01-22 06:27] LABS: Absolute Lymphocytes (CBC) 1.1 K/uL (0.7-4.9); Absolute Monocytes 0.8 K/uL (0.1-1.3); Absolute Neutrophil 2.1 K/uL (1.8-8.0); Basophils % 0.4 % (0-1.3); Hematocrit 35.4 % (36.0-45.0); Monocytes % 19.8 % (3.3-12.3); RBC Red Blood Cell Count 4.13 M/uL (3.86-4.86)
[2019-01-22 06:39] LABS: Albumin 2.8 g/dL (3.4-5.0); Bilirubin Total 0.4 mg/dL (0.2-1.0); Potassium 3.9 mmol/L (3.5-5.1); Protein, Total 5.6 g/dL (6.4-8.2)
[2019-01-22] MEDS ORDERED: POTASSIUM CL SA 10 MEQ TAB PO ONE (09:00)
[2019-01-22] MEDS: OSELTAMIVIR 75 MG CAP PO SCH ×2 (11:23→20:44)
[2019-01-22] MEDS: PANTOPRAZOLE 40MG TABLET PO SCH (12:41)
[2019-01-22] MEDS ORDERED: IBUPROFEN 400 MG TAB PO PRN (18:31)
[2019-01-22 21:06] VITALS: O2SAT 97
--- NOTE | 2019-01-22 21:47 | PN ---
Date of Progress Note: 01/22/2019 Subjective: The patient is seen and examined. Chart reviewed and case discussed with RN. The patie nt is still feeling very poorly, has significant fatigue, no energy; feels lethargic. Medications: List reviewed. Physical Examination: Vital Signs: Temperature 99.1, heart rate 81, blood pressure 108/67, respirations 16, O2 98% on 3 L via nasal cannula. General: Awake, alert, oriented x3, in some mild distress. Ill-appearing female. BMI 37. CV: S1,S2. Regular rate and rhythm. Peripheral pulses present. Respiratory: Diminished breath sounds. No wheezing or stridor. Gastrointestinal: Abdomen is soft, nontender, nondistended. Positive bowel sounds. Extremities: No clubbing, cyanosis, or edema. Neurologic: Nonfocal. Cranial nerves 2 through 12 intact grossly. Speech is normal. Laboratory Data: Sodium 142, potassium 3.9, chloride 112, CO2 24, BUN 8, creatinine 0.93, glucose 11 0, lactate 0.7, calcium 7, albumin 2.8, WBC 4, H and H 12 and 35.4, platelets 230. Blood cultures, n o growth to date. Influenza screen positive for flu A. Assessment And Plan: Ms. Looney is a 43-year-old female with: 1.Influenza A. continue Tamiflu, symptomatic treatment. The patient is still very lethargic, low-g rade temperature 99.1 currently, she did spike a temperature of 101.3 at around midnight. We will ke ep on droplet precautions. 2.Gastroesophageal reflux disease without esophagitis. We will continue proton-pump inhibitors. 3.History of migraine headaches without status migrainosus. We will resume home medications as appr opriate. 4.Obesity, BMI 37. Plan: Discharge in the next 24-48 hours depending on clinical response. Deep vein thrombosis prophy laxis addressed. SA/MODL Voice ID: [id number] Report ID: [id number]
[2019-01-23] MEDS: NA CHLORIDE 0.9% 1,000 ML IV SCH (02:40)
[2019-01-23 05:35] LABS: Phosphorus 2.8 mg/dL (2.5-4.9); Potassium 3.8 mmol/L (3.5-5.1)
[2019-01-23] MEDS: PANTOPRAZOLE 40MG TABLET PO SCH (06:26)
[2019-01-23] MEDS ORDERED: POTASSIUM CL SA 10 MEQ TAB PO ONE (06:30)
[2019-01-23] MEDS: OSELTAMIVIR 75 MG CAP PO SCH (09:54)
[2019-01-23 10:44] VITALS: BP 108/65; TEMP 98.1
--- NOTE | 2019-01-24 06:57 | DS ---
Date of Discharge: 01/23/2019 Discharge Diagnoses: 1. Acute influenza, improved with Tamiflu. 2. Gastroesophageal reflux disease without esophagitis. Continue PPI. 3. History of migraines without status migrainosus, stable. 4. Obesity, BMI 37. Hospital Course: The patient is a female who comes in with cough, generalized weakness, and body ache. The patient was found to have high fevers of 103. Her WBCs were normal as were the procalcitonin; however, she was acidotic and lactate was elevated at 3.1. The patient was found to be flu positive. She was started on Tamiflu. She was bolused with IV fluids and the patient had improvement in her condition. Blood cultures were obtained which did not show any growth. Her chest x-ray showed no acute abnormalities. There were no infiltrates. The patient did well over the course of the hospital stay. She did have some fevers as high as 101.3 at midnight on 01/22. The patient has been afebrile since then for over 24 hours. The patient had significant improvement with Tamiflu. She was rehydrated. Her lactate normalized. The patient was able to ambulate without difficulty. No hypoxia. She did not have any further dyspnea. The patient was then cleared for discharge and was sent home on a course of Tamiflu for a total of 5 days. Followup: Follow up with primary care physician in 2-3 days. Return to ER for worsening condition. Diet: Heart healthy. Activity: As tolerated. Physical Examination: General: Awake, alert, and oriented x3. No acute distress. Obese female. CV: S1, S2. No murmurs. Respiratory: Moving air well bilaterally. No wheezing. Gastrointestinal: Abdomen is soft, nontender, and nondistended. Positive bowel sounds. Extremities: No clubbing, cyanosis, or edema. Neurologic: Nonfocal. Total time spent discharging the patient was 33 minutes. SA/MODChi Voice ID: [id number] Report ID: [id number] LIZZIE
== END 2019-01-23 13:29 | disposition home or self-care (01) | DRG 153 ==
LOC: ER 12:39 → ERHOLD 17:29 → 4TH 20:36
PROVIDERS: ADMIT Family Medicine; ATTEND Internal Medicine
DX: J11.1 Influenza due to unidentified influenza virus with other respiratory manifestations (principal); K21.9 Gastro-esophageal reflux disease without esophagitis; G43.909 Migraine, unspecified, not intractable, without status migrainosus; E66.9 Obesity, unspecified; Z68.37 Body mass index [BMI] 37.0-37.9, adult
CPT/HCPCS: 36415; 71045; 80048; 80053; 80076; 81003; 81025; 83605; 83735; 83880; 84100; 84145; 84484; 85025; 85610; 87040; 87804; 93005; 94760; 96361; 96365; 96366; 96375; 99285; J2405; J2550; J7030

== ENCOUNTER 2019-05-18 16:36 | Emergency (ER) | payer OTHER, SELFPAY ==
--- OUTSIDE RECORDS SUMMARY | 2019-05-18 16:38 | XMS REPORT ---
:1975 Author Organization [facility] Address [address] [place] [address] [address] [place] [address] Care Team Providers Name Role Phone Unavailable Unavailable Unavailable Problems This patient has no known problems. Allergies, Adverse Reactions, Alerts This patient has no known allergies or adverse reactions. Medications This patient has no known medications.
[2019-05-18 17:17] LABS: Absolute Lymphocytes (CBC) 2.6 K/uL (0.7-4.9); Basophils % 0.7 % (0-1.3); Eosinophils % 0.8 % (0-4.4); Hematocrit 42.2 % (36.0-45.0); MPV 9.2 fL (7.6-11.3); Monocytes % 8.4 % (3.3-12.3); RBC Red Blood Cell Count 4.95 M/uL (3.86-4.86)
--- NOTE | 2019-05-18 17:19 | RAD REPORT ---
EXAM DESCRIPTION: RAD - Chest Single View - 05/18/2019 5:01 pm CLINICAL HISTORY: CHEST PAIN Chest pain. COMPARISON: <Comparisons> FINDINGS: Portable technique limits examination quality. The lungs are underinflated resulting in vascular crowding. The heart is normal in size. No displaced fractures.
--- NOTE | 2019-05-18 17:19 | RAD REPORT ---
EXAM DESCRIPTION: CT - Head Brain Wo Cont - 05/18/2019 5:09 pm CLINICAL HISTORY: headache, left arm tingling Headache, drowsiness COMPARISON: Head Brain Wo Cont dated 02/05/2018 TECHNIQUE: All CT scans are performed using dose optimization technique as appropriate and may inclu de automated exposure control or mA/KV adjustment according to patient size. FINDINGS: No intracranial hemorrhage, hydrocephalus or extra-axial fluid collection.No areas of brai n edema or evidence of midline shift. The paranasal sinuses and mastoids are clear. The calvarium is intact. IMPRESSION: No acute intracranial abnormality.
[2019-05-18 17:56] LABS: BUN Blood Urea Nitrogen 10 mg/dL (7-18); Bicarbonate 25 mmol/L (21-32); Glucose Level 91 mg/dL (74-106); NT PRO-BNP 175 pg/mL (<125); Potassium 3.7 mmol/L (3.5-5.1); Sodium Level 138 mmol/L (136-145); Troponin (Emerg Dept Use Only) < 0.02 ng/mL (0.0-0.045)
--- NOTE | 2019-05-18 19:00 | RAD REPORT ---
EXAM DESCRIPTION: CT - Angio Aorta For Dissection - 05/18/2019 6:47 pm CLINICAL HISTORY: Chest pain radiating to the back. CHEST PAIN COMPARISON: No comparisons TECHNIQUE: CT angiography of the aorta was performed with MIPs. All CT scans are performed using dose optimization technique as appropriate and may include automated exposure control or mA/KV adjustment according to patient size. FINDINGS: A left aortic arch is present with normal branching pattern of the great vessels.No acute aortic finding is seen such as aneurysm, penetrating ulcer or dissection. The celiac axis, SMA, KENNEY and renal arteries are widely patent. No evidence of pulmonary embolism. The lungs appear clear of acute infiltrate. Moderate axial hiatal hernia. The liver demonstrates no focal mass or biliary dilatation.Cholecystectomy clips.The spleen, pancreas , adrenal glands and kidneys are within normal limits for arterial phase imaging. No bowel obstruction, free fluid or abscess.Small fat containing umbilical hernia.No pathologic enlar ged lymphadenopathy identified. No fracture or worrisome bone lesion seen. IMPRESSION: No acute aortic finding is demonstrated.
--- NOTE | 2019-05-18 19:08 | EDPHYS ---
Physician Documentation [facility] Name: Dara Looney Age: 43 yrs Sex: Female : 1975 Arrival Date: 05/18/2019 Time: 16:[address] Private MD: ED Physician Caleb Pearce HPI: 05/18 17:09 This 43 yrs old Female presents to ER via EMS with complaints of Chest Pain. rn 17:09 The patient or guardian reports chest pain that is located primarily in the anterior rn chest wall. Onset: just prior to arrival. The pain radiates to the left arm, The chest pain is described as aching, sharp. Duration: The patient or guardian reports multiple episodes, that are intermittent. Modifying factors: The symptoms are alleviated by nothing. the symptoms are aggravated by nothing. Severity of pain: At its worst the pain was mild in the emergency department the pain is unchanged. The patient has experienced a previous episode. Reports chest pain while at work, center/anterior chest, radiates to back and assoc with tingling to left arm. Reports also has headache and hx of migraine/headaches. No trauma. No fever/cough/sob/abd pain/vomiting. Reports admitted for chest pain 5 months ago here, had negative workup and told might have had mild heart attack. Did not require stents. Reports multiple family members with [place] in their 40s. Denies drug use. . 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 - Social history:: Smoking status: Patient/guardian denies using tobacco. - Ebola Screening: : Patient negative for fever greater than or equal to 101.5 degrees Fahrenheit, and additional compatible Ebola Virus Disease symptoms. - Family history:: not pertinent. - Hospitalizations: : No recent hospitalization is reported. ROS: 17:09 Constitutional: Negative for fever, chills, and weight loss, Eyes: Negative for injury, rn pain, redness, and discharge, Cardiovascular: + chest pain Respiratory: Negative for shortness of breath, cough, wheezing, and pleuritic chest pain, Abdomen/GI: negative for abdominal pain/nausea/vomiting MS/Extremity: Negative for injury and deformity, Skin: Negative for injury, rash, and discoloration, Neuro: Negative for headache, weakness, numbness, tingling, and seizure. Exam: 17:09 Constitutional: This is a well developed, well nourished patient who is awake, alert, rn and in no acute distress. Head/Face: Normocephalic, atraumatic. Eyes: Pupils equal round and reactive to light, extra-ocular motions intact. Lids and lashes normal. Conjunctiva and sclera are non-icteric and not injected. Cornea within normal limits. Periorbital areas with no swelling, redness, or edema. ENT: MMM Cardiovascular: Regular rate and rhythm. No pulse deficits. Respiratory: Lungs have equal breath sounds bilaterally, clear to auscultation Abdomen/GI: Soft, non-tender MS/ Extremity: Pulses equal, no cyanosis. Neurovascular intact. Full, normal range of motion. Equal circumference. Neuro: Awake and alert, GCS 15, oriented to person, place, time, and situation. Cranial nerves II-XII grossly intact. Motor strength 5/5 in all extremities. Sensory grossly intact. Vital Signs: 16:37 BP 123 / 93; Pulse 79; Resp 17; Pulse Ox 100% on R/A; Weight 99.79 kg (R); Height 5 ft. rb1 5 in. (165.10 cm) (R); Pain 8/10; 17:00 BP 116 / 67; Pulse 68; Resp 19; Temp 98.4(O); Pulse Ox 100% on R/A; rb1 18:00 BP 117 / 77; Pulse 59; Resp 14; Temp 98.4(O); Pulse Ox 100% on R/A; Pain 8/10; rb1 19:26 BP 112 / 83; Pulse 56; Resp 16; Temp 98.1(O); Pulse Ox 100% on R/A; Pain 6/10; rb1 16:37 Body Mass Index 36.61 (99.79 kg, 165.10 cm) rb1 MDM: 16:46 Patient medically screened. rn 17:28 ED course: Discharge summary negates what patient stated, per cardiology stress and rn ECHO negative and did not think was cardiac at the time. . 19:04 Differential diagnosis: acute myocardial infarction, acute pericarditis, anxiety, rn coronary artery disease chest wall pain, costochondritis, gastroesophageal reflux disease (GERD), pleurisy, pneumothorax, thoracic aortic disection. Data reviewed: vital signs, nurses notes, lab test result(s), EKG, radiologic studies, CT scan, plain films, and as a result, I will discharge patient. Counseling: I had a detailed discussion with the patient and/or guardian regarding: the historical points, exam findings, and any diagnostic results supporting the discharge/admit diagnosis, lab results, radiology results, the need for outpatient follow up, to return to the emergency department if symptoms worsen or persist or if there are any questions or concerns that arise at home. Special discussion: Based on the patient's history, exam, and Dx evaluation, there is no indication for emergent intervention or inpatient Tx. It is understood by the patient/guardian that if the Sx's persist or worsen they need to return immediately for re-evaluation. I discussed with the patient/guardian in detail that at this point there is no indication for admission to the hospital. It is understood, however, that if the symptoms persist or worsen the patient needs to return immediately for re-evaluation. ED course: Normal cardiac w/u and cardiac eval 5 months ago here with documentation, neg trop, normal ecg, normal cxr, no acute findings on ct aorta. Will dc home. . 19:04 ED course: Pt with headache, left arm tingling, and tingling of both feet, not in rn cerebral vascular pattern and ct head negative. . 05/18 16:47 Order name: Basic Metabolic Panel rn 05/18 16:47 Order name: CBC with Diff rn 05/18 16:47 Order name: NT PRO-BNP; Complete Time: 18:14 rn 05/18 16:47 Order name: Troponin (emerg Dept Use Only); Complete Time: 18:14 rn 05/18 16:47 Order name: Basic Metabolic Panel; Complete Time: 18:14 EDIL 05/18 16:47 Order name: CBC with Automated Diff; Complete Time: 17:25 EDIL 05/18 16:47 Order name: XRAY Chest (1 view); Complete Time: 17:25 rn 05/18 16:47 Order name: EKG; Complete Time: 16:48 rn 05/18 16:47 Order name: Cardiac monitoring; Complete Time: 17:10 rn 05/18 16:47 Order name: EKG - Nurse/Tech; Complete Time: 17:09 rn 05/18 16:47 Order name: CT Head Brain wo Cont; Complete Time: 17:25 rn 05/18 18:11 Order name: Urine Dipstick--Ancillary (enter results) 05/18 18:11 Order name: Urine --Ancillary (enter results) 05/18 18:15 Order name: CT Aorta for Dissection; Complete Time: 19:04 rn 05/18 16:47 Order name: IV Saline Lock; Complete Time: 17:09 rn 05/18 16:47 Order name: Labs collected and sent; Complete Time: 17:09 rn 05/18 16:47 Order name: O2 Per Protocol; Complete Time: 17:31 rn 05/18 16:47 Order name: O2 Sat Monitoring; Complete Time: 17:31 rn Administered Medications: No medications were administered Disposition: 05/18/19 19:07 Discharged to Home. Impression: Chest pain, unspecified, Headache, Paresthesia of skin. - Condition is Stable. - Discharge Instructions: Nonspecific Chest Pain, General Headache Without Cause, Paresthesia. - Medication Reconciliation Form, Thank You Letter, Antibiotic Education, Prescription Opioid Use form. - Follow up: Private Physician; When: As needed; Reason: Recheck today's complaints, Re-evaluation by your physician. - Problem is new. - Symptoms have improved. Signatures: Dispatcher [employer] EDMS Caleb Pearce MD MD rn Barber, Rebecca, RN RN rb1 Corrections: (The following items were deleted from the chart) 17:32 16:37 PMHx: Myocardial infarction; rb1 rb1 19:28 19:07 05/18/2019 19:07 Discharged to Home. Impression: Chest pain, unspecified; rb1 Headache; Paresthesia of skin. Condition is Stable. Forms are Medication Reconciliation Form, Thank You Letter, Antibiotic Education, Prescription Opioid Use. Follow up: Private Physician; When: As needed; Reason: Recheck today's complaints, Re-evaluation by your physician. Problem is new. Symptoms have improved. rn
--- NOTE | 2019-05-18 19:08 | ER ---
Nurse's Notes [facility] Name: Dara Looney Age: 43 yrs Sex: Female : 1975 Arrival Date: 05/18/2019 Time: 16:[address] Private MD: Diagnosis: Chest pain, unspecified;Headache;Paresthesia of skin Presentation: 05/18 16:37 Presenting complaint: EMS states: PT. is 43 yr. c/o chest pain 8/10 radiates to the rb1 left side and to the back. C/o of left sided weakness, numbness to the left leg, arm, and left side of face. Gait is steady, speech is clear. NKDA, no medications, History of SD, acid reflux, tonsillectomy, cholecystectomy, and c -section. BP 122/67, P 80 SR, BGL 109. 20 G Right wrist. Transition of care: patient was not received from another setting of care. Onset of symptoms was May 18, 2019. Risk Assessment: Do you want to hurt yourself or someone else? Patient reports no desire to harm self or others. Initial Sepsis Screen: Does the patient meet any 2 criteria? No. Patient's initial sepsis screen is negative. Does the patient have a suspected source of infection? No. Patient's initial sepsis screen is negative. Care prior to arrival: IV initiated. 20 GA, in the right wrist. 16:37 Method Of Arrival: EMS: [place] [id number] 16:37 Acuity: SHEILA 3 rb1 Triage Assessment: 16:37 General: Appears in no apparent distress. comfortable, Behavior is calm, cooperative. rb1 Pain: Complains of pain in mid-sternal area Pain radiates to left chest and back Pain currently is 8 out of 10 on a pain scale. Quality of pain is described as sharp. Neuro: Level of Consciousness is awake, alert, obeys commands, Oriented to person, place, time, situation. Neuro: Reports numbness in left leg, left arm, and left cheek. Cardiovascular: Capillary refill < 3 seconds is brisk in bilateral fingers. Respiratory: Airway is patent Respiratory effort is even, unlabored, Respiratory pattern is regular, symmetrical. GI: No signs and/or symptoms were reported involving the gastrointestinal system. : No signs and/or symptoms were reported regarding the genitourinary system. Derm: Skin is pink, warm \T\ dry. Musculoskeletal: Range of motion: intact in all extremities. 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 - Social history:: Smoking status: Patient/guardian denies using tobacco. - Ebola Screening: : Patient negative for fever greater than or equal to 101.5 degrees Fahrenheit, and additional compatible Ebola Virus Disease symptoms. - Family history:: not pertinent. - Hospitalizations: : No recent hospitalization is reported. Screenin:37 Abuse screen: Denies threats or abuse. Nutritional screening: No deficits noted. rb1 Tuberculosis screening: No symptoms or risk factors identified. Fall Risk None identified. Assessment: 16:37 Pain: Pain began suddenly. rb1 16:37 General: See triage assessment. rb1 17:35 Reassessment: Patient appears in no apparent distress at this time. No changes from rb1 previously documented assessment. 18:35 Reassessment: Patient appears in no apparent distress at this time. Patient and/or rb1 family updated on plan of care and expected duration. Pain level reassessed. Patient is alert, oriented x 3, equal unlabored respirations, skin warm/dry/pink. 19:26 Reassessment: Patient appears in no apparent distress at this time. Patient and/or rb1 family updated on plan of care and expected duration. Pain level reassessed. Patient is alert, oriented x 3, equal unlabored respirations, skin warm/dry/pink. Patient states feeling better. Vital Signs: 16:37 BP 123 / 93; Pulse 79; Resp 17; Pulse Ox 100% on R/A; Weight 99.79 kg (R); Height 5 ft. rb1 5 in. (165.10 cm) (R); Pain 8/10; 17:00 BP 116 / 67; Pulse 68; Resp 19; Temp 98.4(O); Pulse Ox 100% on R/A; rb1 18:00 BP 117 / 77; Pulse 59; Resp 14; Temp 98.4(O); Pulse Ox 100% on R/A; Pain 8/10; rb1 19:26 BP 112 / 83; Pulse 56; Resp 16; Temp 98.1(O); Pulse Ox 100% on R/A; Pain 6/10; rb1 16:37 Body Mass Index 36.61 (99.79 kg, 165.10 cm) rb1 ED Course: 16:37 Arm band placed on left wrist. rb1 16:37 Patient has correct armband on for positive identification. Placed in gown. Bed in low rb1 position. Call light in reach. Side rails up X 1. it infrastructure engineer on. Pulse ox on. NIBP on. Warm blanket given. 16:37 Patient maintains SpO2 saturation greater than 95% on room air. rb1 16:46 Patient arrived in ED. rn 16:46 Caleb Pearce MD is Attending Physician. rn 16:54 Christianne Joe, DENNIS is Primary Nurse. rb1 17:02 XRAY Chest (1 view) In Process Unspecified. EDMS 17:04 Triage completed. rb1 17:08 Initial lab(s) drawn, by va, sent to lab. EKG done, by ED staff, reviewed by Caleb Pearce MD. Maintain EMS IV. IV Flushed. 17:09 CT completed. Patient tolerated procedure well. Patient moved back from CT. bq 17:09 CT Head Brain wo Cont In Process Unspecified. EDMS 17:09 Basic Metabolic Panel Sent. 5 17:09 CBC with Automated Diff Sent. 5 17:10 Basic Metabolic Panel Sent. 5 17:11 Troponin (emerg Dept Use Only) Sent. 5 17:11 NT PRO-BNP Sent. 5 17:11 CBC with Diff Sent. 5 18:13 Urine --Ancillary (enter results) Sent. 5 18:13 Urine Dipstick--Ancillary (enter results) Sent. 5 18:13 Urine collected:. mh5 18:47 CT Aorta for Dissection In Process Unspecified. EDMS 18:55 CT completed. Patient tolerated procedure well. Patient moved back from CT. mw3 19:27 No provider procedures requiring assistance completed. IV discontinued, intact, rb1 bleeding controlled, No redness/swelling at site. Pressure dressing applied. Administered Medications: No medications were administered Outcome: 19:07 Discharge ordered by . rn 19:27 Discharged to home ambulatory, with family. rb1 19:27 Condition: stable 19:27 Discharge instructions given to patient, Instructed on discharge instructions, follow up and referral plans. Demonstrated understanding of instructions, follow-up care, Prescriptions given X none 19:28 Patient left the ED. rb1 Signatures: Dispatcher [employer] EDMS Malaika Greenberg Roman, MD MD rn Barber, Rebecca, RN RN [facility] Altagracia Deras mw3 Corrections: (The following items were deleted from the chart) 17:32 16:37 PMHx: Myocardial infarction; rb1 rb1 18:55 18:47 Patient moved back from CT. mw3 mw3 18:55 18:47 CT completed. Patient tolerated procedure well mw3 mw3
[2019-05-18 19:50] VITALS: O2SAT 100
[2019-05-18 19:54] VITALS: BP 112/83; TEMP 98.1
[2019-05-18 22:08] LABS: Urine Blood NEGATIVE (NEG); Urine Glucose NEGATIVE (NEG); Urine Protein NEGATIVE (NEG); Urine pH 5.5 (5.0-7.0)
--- NOTE | 2019-05-18 22:15 | EKG ---
Test Date: 2019-05-18 Test Time: 16:47:54 Branch Store Manager: LOGAN MEASUREMENT RESULTS: Intervals: Rate: 72 MA: 168 QRSD: 76 QT: 440 QTc: 481 [place]: P: 35 MA: 168 QRS: 9 T: 51 INTERPRETIVE STATEMENTS: Normal sinus rhythm Prolonged QT Abnormal ECG Compared to ECG 01/21/2019 12:56:30 Prolonged QT interval now present Sinus tachycardia no longer present Ventricular premature complex(es) no longer present Myocardial infarct finding no longer present Electronically Signed On 05-18-19 22:14:52 CDT by Samy Man
== END 2019-05-18 19:28 | disposition home or self-care (01) ==
LOC: ER 16:36
DX: R51 Headache (principal); R20.2 Paresthesia of skin
CPT/HCPCS: 36415; 70450; 71045; 71275; 74175; 80048; 81003; 81025; 83880; 84484; 85025; 93005; 99285; Q9967

== ENCOUNTER 2019-11-18 19:42 | Emergency (ER) | payer SELFPAY ==
--- OUTSIDE RECORDS SUMMARY | 2019-11-18 19:44 | XMS REPORT ---
:1975 [facility] Address [address] [place] [address] [address] [place] [address] Care Team Providers Name Role Phone Unavailable Unavailable Unavailable Problems This patient has no known problems. Allergies, Adverse Reactions, Alerts This patient has no known allergies or adverse reactions. Medications This patient has no known medications.
[2019-11-18] MEDS ORDERED: MAGNE/ALUM HYDROXD 30 ML UCUP ONE (20:15)
[2019-11-18] MEDS ORDERED: ONDANSETRON 4 MG/2 ML VIAL ONE (20:15)
[2019-11-18] MEDS ORDERED: FAMOTIDINE 20 MG/2 ML VIAL IV ONE (20:16)
[2019-11-18] MEDS ORDERED: NA CHLORIDE 0.9% 1,000 ML ONE (20:16)
[2019-11-18] MEDS ORDERED: LIDOCAINE VISCOUS 2% SOLN 15 ML UDC ONE (20:16)
[2019-11-18 20:36] LABS: Absolute Lymphocytes (CBC) 1.8 K/uL (0.7-4.9); Basophils % 0.8 % (0-1.3); Hematocrit 41.3 % (36.0-45.0); Lymphocytes % 20.2 % (15.3-44.8); MPV 8.6 fL (7.6-11.3); RBC Red Blood Cell Count 4.76 M/uL (3.86-4.86)
[2019-11-18] MEDS ORDERED: MORPHINE 4 MG/ML SYR ONE (20:37)
[2019-11-18 20:52] LABS: Albumin 3.5 g/dL (3.4-5.0); Bilirubin Direct 0.1 mg/dL (0-0.2); Bilirubin Total 0.5 mg/dL (0.2-1.0); Potassium 3.8 mmol/L (3.5-5.1); Protein, Total 6.9 g/dL (6.4-8.2)
[2019-11-18] MEDS ORDERED: CEFTRIAXONE/SWI 1gm 1 GM/10 ML SYR ONE (21:06)
[2019-11-18 21:17] LABS: Urine Amorphous Sediment 4+ /HPF (NONE SEEN); Urine Bacteria 20-50 /HPF (<20); Urine Culture Reflex Order REFLEXED; Urine RBC <5 /HPF (NONE SEEN)
[2019-11-18 22:01] LABS: Urine Blood NEGATIVE (NEG); Urine Glucose NEGATIVE (NEG); Urine pH 8.5 (5.0-7.0)
[2019-11-18 22:02] LABS: Urine Protein NEGATIVE (NEG)
--- NOTE | 2019-11-18 23:22 | EDPHYS ---
Physician Documentation [facility] Name: Dara Looney Age: 44 yrs Sex: Female : 1975 Arrival Date: 11/18/2019 Time: 19:43 Bed 24 Private MD: ED Physician Acacia Barlow HPI: 11/18 21:18 This 44 yrs old Female presents to ER via Ambulatory with complaints of Low ma2 Back Pain. 21:18 The symptoms are located in the low back. Onset: The symptoms/episode began/occurred ma2 gradually, 1 day(s) ago. Associated signs and symptoms: Pertinent positives: abdominal pain, Pertinent negatives: chest pain, dysuria, hematuria, nausea, vomiting. Severity of symptoms: At their worst the symptoms were mild, in the emergency department the symptoms are unchanged. The patient has not experienced similar symptoms in the past. 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 - Social history:: Smoking status: Patient/guardian denies using tobacco, Patient/guardian denies using alcohol, street drugs, The patient lives with family. - Ebola Screening: : Patient negative for fever greater than or equal to 101.5 degrees Fahrenheit, and additional compatible Ebola Virus Disease symptoms Patient denies exposure to infectious person Patient denies travel to an Ebola-affected area in the 21 days before illness onset No symptoms or risks identified at this time. - Family history:: not pertinent. ROS: 21:18 Constitutional: Negative for fever, chills, and weight loss. ma2 21:18 All other systems are negative. Exam: 21:18 Constitutional: This is a well developed, well nourished patient who is awake, alert, ma2 and in no acute distress. Chest/axilla: Normal chest wall appearance and motion. Nontender with no deformity. No lesions are appreciated. Cardiovascular: Regular rate and rhythm with a normal S1 and S2. No gallops, murmurs, or rubs. Normal PMI, no JVD. No pulse deficits. Respiratory: Lungs have equal breath sounds bilaterally, clear to auscultation and percussion. No rales, rhonchi or wheezes noted. No increased work of breathing, no retractions or nasal flaring. Abdomen/GI: Soft, non-tender, with normal bowel sounds. No distension or tympany. No guarding or rebound. No evidence of tenderness throughout. MS/ Extremity: Pulses equal, no cyanosis. Neurovascular intact. Full, normal range of motion. Neuro: Awake and alert, GCS 15, oriented to person, place, time, and situation. Cranial nerves II-XII grossly intact. Motor strength 5/5 in all extremities. Sensory grossly intact. Cerebellar exam normal. Normal gait. Vital Signs: 19:59 BP 111 / 79; Pulse 82; Resp 17 S; Temp 98.3(O); Pulse Ox 98% on R/A; Weight 97.52 kg ca1 (R); Height 5 ft. 5 in. (165.10 cm) (R); Pain 7/10; 21:00 BP 112 / 77; Pulse 62; Resp 18; Pulse Ox 98% ; fu 22:08 BP 102 / 70; Pulse 79; Resp 18; Pulse Ox 98% ; fu 22:30 BP 101 / 75; Pulse 64; Pulse Ox 100% ; fu 23:30 BP 98 / 67; Pulse 67; Pulse Ox 100% ; fu 19:59 Body Mass Index 35.78 (97.52 kg, 165.10 cm) ca1 MDM: 19:50 Patient medically screened. ma2 21:18 Differential diagnosis: strain, contusion, Herniated disc UTI. Data reviewed: vital ma2 signs, nurses notes. Counseling: I had a detailed discussion with the patient and/or guardian regarding: the historical points, exam findings, and any diagnostic results supporting the discharge/admit diagnosis, the presence of at least one elevated blood pressure reading (>120/80) during this emergency department visit, the need for outpatient follow up. Response to treatment: the patient's symptoms have markedly improved after treatment. 11/18 20:05 Order name: Basic Metabolic Panel; Complete Time: 21:14 ma2 11/18 20:05 Order name: CBC with Diff; Complete Time: 21:14 ma2 11/18 20:05 Order name: Creatinine for Radiology; Complete Time: 21:14 [facility] 11/18 20:05 Order name: Hepatic Function; Complete Time: 21:14 [facility] 11/18 20:05 Order name: Lipase; Complete Time: 21:14 [facility] 11/18 21:02 Order name: Urine Microscopic Only; Complete Time: 21:44 ca1 11/18 20:05 Order name: CT Abd/Pelvis - IV Contrast Only [facility] 11/18 21:13 Order name: Urine Dipstick--Ancillary (enter results); Complete Time: 22:02 [facility] 11/18 21:21 Order name: Urine Culture [facility] 11/18 20:05 Order name: IV Saline Lock; Complete Time: 20:26 [facility] 11/18 20:05 Order name: Labs collected and sent; Complete Time: 20:26 [facility] 11/18 20:05 Order name: Urine Dipstick-Ancillary (obtain specimen); Complete Time: 21:02 al2 Administered Medications: 20:10 Drug: GI Cocktail without - (Maalox Suspension 30 ml, Lidocaine Liquid 2 % 15 ca1 ml) Route: PO; 20:20 Drug: NS 0.9% 1000 ml Route: IV; Rate: 1 bolus; Site: right antecubital; ca1 20:22 Drug: Zofran 4 mg Route: IVP; Site: right antecubital; ca1 20:25 Drug: Pepcid 20 mg Route: IVP; Site: right antecubital; ca1 20:30 Drug: morphine 4 mg {Note: RASS - 0.} Route: IVP; Site: right antecubital; ca1 21:05 Drug: Rocephin 1 grams Route: IV; Rate: bolus; Site: right antecubital; fu 22:05 Follow up: Response: No adverse reaction fu Disposition: 11/18/19 23:21 Discharged to Home. Impression: Cystitis, unspecified without hematuria. - Condition is Stable. - Prescriptions for Zofran 4 mg Oral Tablet - take 1 tablet by ORAL route every 12 hours As needed; 20 tablet. Pepcid 20 mg Oral Tablet - take 1 tablet by ORAL route once daily; 20 tablet. Cipro 500 mg Oral Tablet - take 1 tablet by ORAL route every 12 hours for 7 days; 14 tablet. - Medication Reconciliation Form, Thank You Letter, Antibiotic Education, Prescription Opioid Use form. - Follow up: Private Physician; When: Tomorrow; Reason: Continuance of care. Signatures: Dispatcher [employer] Jesus Manuel Razo, RN RN Acacia Grant MD MD ma2 Blanca Page RN RN ca1 Corrections: (The following items were deleted from the chart) 23:53 23:21 11/18/2019 23:21 Discharged to Home. Impression: Cystitis, unspecified without fu hematuria. Condition is Stable. Prescriptions for Zofran 4 mg Oral Tablet - take 1 tablet by ORAL route every 12 hours As needed; 20 tablet, Pepcid 20 mg Oral Tablet - take 1 tablet by ORAL route once daily; 20 tablet, Cipro 500 mg Oral Tablet - take 1 tablet by ORAL route every 12 hours for 7 days; 14 tablet. and Forms are Medication Reconciliation Form, Thank You Letter, Antibiotic Education, Prescription Opioid Use. Follow up: Private Physician; When: Tomorrow; Reason: Continuance of care. gina
--- NOTE | 2019-11-18 23:22 | ER ---
Nurse's Notes [facility] Name: Dara Looney Age: 44 yrs Sex: Female : 1975 Arrival Date: 11/18/2019 Time: 19:43 Bed 24 Private MD: Diagnosis: Cystitis, unspecified without hematuria Presentation: 11/18 19:57 Presenting complaint: Patient states: Intermittent RUQ pain radiating to the back x ca1 couple days ago. Reports nausea. Denies vomiting, diarrhea, fever. Transition of care: patient was not received from another setting of care. Onset of symptoms was November 18, 2019. Risk Assessment: Do you want to hurt yourself or someone else? Patient reports no desire to harm self or others. Initial Sepsis Screen: Does the patient meet any 2 criteria? No. Patient's initial sepsis screen is negative. Does the patient have a suspected source of infection? No. Patient's initial sepsis screen is negative. Care prior to arrival: None. 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 - Social history:: Smoking status: Patient/guardian denies using tobacco, Patient/guardian denies using alcohol, street drugs, The patient lives with family. - Ebola Screening: : Patient negative for fever greater than or equal to 101.5 degrees Fahrenheit, and additional compatible Ebola Virus Disease symptoms Patient denies exposure to infectious person Patient denies travel to an Ebola-affected area in the 21 days before illness onset No symptoms or risks identified at this time. - Family history:: not pertinent. Screenin:00 Abuse screen: Denies threats or abuse. Denies injuries from another. Nutritional ca1 screening: No deficits noted. Tuberculosis screening: No symptoms or risk factors identified. Fall Risk None identified. Assessment: 20:00 General: Appears in no apparent distress. comfortable, Behavior is calm, cooperative, ca1 appropriate for age. Pain: Complains of pain in right upper quadrant Pain radiates to mid back area and right mid back Pain currently is 7 out of 10 on a pain scale. Pain began 2-3 days ago. Is intermittent. Neuro: Level of Consciousness is awake, alert, obeys commands, Oriented to person, place, time, situation, Appropriate for age. Cardiovascular: Heart tones S1 S2 present Capillary refill < 3 seconds Patient's skin is warm and dry. Respiratory: Airway is patent Respiratory effort is even, unlabored, Respiratory pattern is regular, symmetrical, Breath sounds are clear bilaterally. GI: Abdomen is round non-distended, Bowel sounds present X 4 quads. Abd is soft X 4 quads Abdomen is tender to palpation in right upper quadrant. : No signs and/or symptoms were reported regarding the genitourinary system. EENT: No signs and/or symptoms were reported regarding the EENT system. Derm: Skin is intact, is healthy with good turgor, Skin is pink, warm \T\ dry. Musculoskeletal: Circulation, motion, and sensation intact. Capillary refill < 3 seconds, Range of motion: intact in all extremities. 21:31 Reassessment: Patient appears in no apparent distress at this time. No changes from fu previously documented assessment. Patient and/or family updated on plan of care and expected duration. Pain level reassessed. Patient is alert, oriented x 3, equal unlabored respirations, skin warm/dry/pink. Patient states feeling better. Patient states symptoms have improved. 22:09 Reassessment: Patient appears in no apparent distress at this time. No changes from fu previously documented assessment. Patient and/or family updated on plan of care and expected duration. Pain level reassessed. Patient is alert, oriented x 3, equal unlabored respirations, skin warm/dry/pink. IVF ongoing. 22:53 Reassessment: Patient appears in no apparent distress at this time. Patient and/or fu family updated on plan of care and expected duration. Pain level reassessed. Patient states feeling better. Patient states symptoms have improved. pain 4/10 on pain scale. Vital Signs: 19:59 BP 111 / 79; Pulse 82; Resp 17 S; Temp 98.3(O); Pulse Ox 98% on R/A; Weight 97.52 kg ca1 (R); Height 5 ft. 5 in. (165.10 cm) (R); Pain 7/10; 21:00 BP 112 / 77; Pulse 62; Resp 18; Pulse Ox 98% ; fu 22:08 BP 102 / 70; Pulse 79; Resp 18; Pulse Ox 98% ; fu 22:30 BP 101 / 75; Pulse 64; Pulse Ox 100% ; fu 23:30 BP 98 / 67; Pulse 67; Pulse Ox 100% ; fu 19:59 Body Mass Index 35.78 (97.52 kg, 165.10 cm) ca1 ED Course: 19:43 Patient arrived in ED. cl3 19:49 Acacia Barlow MD is Attending Physician. ma2 19:50 Blanca Page, RN is Primary Nurse. ca1 19:58 Triage completed. ca1 19:59 Arm band placed on right wrist. ca1 20:00 Patient has correct armband on for positive identification. Placed in gown. Bed in low ca1 position. Call light in reach. Side rails up X 1. Pulse ox on. NIBP on. Warm blanket given. 20:00 No provider procedures requiring assistance completed. ca1 20:19 Initial lab(s) drawn, by me, sent to lab. Inserted saline lock: 20 gauge in right ca1 antecubital area, using aseptic technique. Blood collected. 21:29 Primary Nurse role handed off by Blanca Page, DENNIS fu 21:29 Jesus Manuel Mcdaniels, RN is Primary Nurse. fu 21:41 CT Abd/Pelvis - IV Contrast Only In Process Unspecified. EDMS 23:40 IV discontinued, bleeding controlled, Pressure dressing applied. fu Administered Medications: 20:10 Drug: GI Cocktail without - (Maalox Suspension 30 ml, Lidocaine Liquid 2 % 15 ca1 ml) Route: PO; 20:20 Drug: NS 0.9% 1000 ml Route: IV; Rate: 1 bolus; Site: right antecubital; ca1 20:22 Drug: Zofran 4 mg Route: IVP; Site: right antecubital; ca1 20:25 Drug: Pepcid 20 mg Route: IVP; Site: right antecubital; ca1 20:30 Drug: morphine 4 mg {Note: RASS - 0.} Route: IVP; Site: right antecubital; ca1 21:05 Drug: Rocephin 1 grams Route: IV; Rate: bolus; Site: right antecubital; fu 22:05 Follow up: Response: No adverse reaction fu Outcome: 23:21 Discharge ordered by MD. fuentes 23:49 Discharged to home ambulatory, with family. fu 23:49 Condition: stable 23:49 Discharge instructions given to patient, Instructed on discharge instructions, Patient refuse to take her home medications prescriptions, Dr. Barlow notified. 23:53 Patient left the ED. fu Addendum: 11/22/2019 07:27 Addendum: Culture Results: Positive urine culture. No further action required. Bacteria e b sensitive to prescribed antibiotic. Signatures: Dispatcher [employer] EDJesus Manuel Montelongo RN Acacia Ocasio MD MD ma2 Mahi Edwards Cheryl RN RN [facility] Alejandro Paris cl3 Corrections: (The following items were deleted from the chart) 11/18 22:47 22:18 Response: No adverse reaction fu fu
[2019-11-19 00:36] VITALS: TEMP 98.3
[2019-11-19 00:41] VITALS: O2SAT 100
[2019-11-19 00:42] VITALS: BP 98/67
--- NOTE | 2019-11-19 10:55 | RAD REPORT ---
EXAM DESCRIPTION: CT - Abdomen Pelvis W Contrast - 11/19/2019 8:41 am CLINICAL HISTORY: Right upper quadrant pain with radiation to back. Nausea.. TECHNIQUE: CT scan of the abdomen and pelvis was performed with intravenous contrast. 5 mm arterial phase axial images of the abdomen were obtained. 5 mm venous phase axial images of the abdomen and pelvis were obtained along with coronal and sagitta l reformatted images. DOSE OPTIMIZATION: This facility uses dose optimization techniques as appropriate to perform exams, including at least one of the following techniques: 1. Automated exposure control. 2. Adjustment of the mA and/or kV according to patient size (this includes techniques or standardized protocols for targeted exams where dose is matched to the indication/reason for exam, i.e. extremiti es or head). 3. Use of iterative reconstructive technique. INTRAVENOUS CONTRAST: Not documented. Please refer to medical record. COMPARISON: None. FINDINGS: Lung Bases: Normal. Liver: Normal. Spleen: Normal. Pancreas: Normal. Gallbladder: Surgically absent. Adrenal Glands: Normal. Kidneys: Normal. Retroperitoneal Structures: Normal. Bowel Survey: There is increased stool identified throughout the colon. The distal ileum is unremarkable. The appendix is unremarkable. Uterus and Adnexa: Normal. Urinary Bladder: Normal. Peritoneal Cavity: Normal. Mesenteric Structures: Normal. Abdominal Wall: No hernia. Bony Structures: No suspicious lesions. IMPRESSION: 1. Increased stool throughout the colon. Electronically signed by: Avelino Fuentes MD 11/18/2019 9:53 PM [employer] CLEARING AGENT Due to temporary technical issues with the PACS/Fluency reporting system, reports are being signed by the in house radiologist as a courtesy to ensure prompt reporting. The interpreting radiologist is f ully responsible for the content of the report.
== END 2019-11-18 23:53 | disposition home or self-care (01) ==
LOC: ER 19:42
DX: N30.90 Cystitis, unspecified without hematuria (principal); R10.9 Unspecified abdominal pain
CPT/HCPCS: 36415; 74177; 80048; 80076; 81003; 81015; 83690; 85025; 87077; 87086; 87088; 87186; 96374; 96375; 99284; J0696; J2405; J7030; Q9967

== ENCOUNTER 2020-03-11 19:00 | Emergency (ER) | payer SELFPAY ==
--- OUTSIDE RECORDS SUMMARY | 2020-03-11 19:02 | XMS REPORT ---
:1975 Author Organization [facility] t Address [address] [place] [address] [address]. [address] [place] [address] Care Team Providers Name Role Phone Unavailable Unavailable Unavailable Problems This patient has no known problems. Allergies, Adverse Reactions, Alerts This patient has no known allergies or adverse reactions. Medications This patient has no known medications.
--- OUTSIDE RECORDS SUMMARY | 2020-03-11 19:03 | XMS REPORT | Summary of Care ---
:1975 Author Organization [facility] Address [address] [place] [id number] Care Team Providers Name Role Phone Pcp, Does Not Have A Primary Care Provider Reason for Referral MRI/CAT Scan (STAT) Status Reason Specialty Diagnoses / Referred By Referred To Procedures Contact Contact New Request Diagnostic Diagnoses Lower abdominal pain Maximiliano, Radiology Procedures CT ABDOMEN PELVIS W CONTRAST Zuleyka Miner MD [address] [place] [id number] Reason for Visit Reason Comments Abdominal Pain Auth/Cert Status Reason Specialty Diagnoses / Referred By Referred To Procedures Contact Contact Emergency Medicine [facility] [address] [place] [phone] Fax: Encounter Details Date Type Department Care Team Description 11/22/2019 - Emergency [facility] Zuleyka Viera Lower abd ominal pain 11/23/2019 Department MD Kristofer (Primary Dx) [address] [place] [phone] [id number] Allergies No Known Allergiesdocumented as of this encounter (statuses as of 11/23/2019) Medications Medication Sig Dispensed Refills Start Date End Date Status esomeprazole 40 mg capsule Take 40 mg by 0 Active mouth daily with breakfast. acetaminophen-codeine Take 1 tablet 10 tablet 0 08/07/2019 Active (TYLENOL-CODEINE #4) by mouth every 300-60 mg 6 (six) hours tabletIndications: Sprain as needed for of metacarpophalangeal Pain. (MCP) joint of right thumb, initial encounter acetaminophen-codeine Take 1-2 12 tablet 0 11/23/2019 Active 300-30 mg tablets by tabletIndications: Lower mouth every 6 abdominal pain (six) hours as needed for Pain (scale 1-3). 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 documented as of this encounter (statuses as of 11/23/2019) Resolved Problems Problem Noted Date Resolved Date Pain, acute postoperative 07/02/2015 02/13/2017 documented as of this encounter (statuses as of 11/23/2019) Immunizations Name Administration Dates Next Due Td 08/07/2019 documented as of this encounter Social History Tobacco Use Types Packs/Day Years Used Date Never Smoker Smokeless Tobacco: Never Used Alcohol Use Drinks/Week oz/Week Comments No 0 Standard drinks or equivalent 0.0 Sex Assigned at Date Recorded Not on file Job Start Date Occupation Industry Not on file Not on file Not on file Travel History Travel Start Travel End No recent travel history available. documented as of this encounter Last Filed Vital Signs Vital Sign Reading Time Taken Comments Blood Pressure 109/72 11/23/2019 2:35 AM CHILD WELFARE CONSULTANT Pulse 61 11/23/2019 2:35 AM CHILD WELFARE CONSULTANT Temperature 36.8 C (98.2 F) 11/22/2019 9:51 PM CHILD WELFARE CONSULTANT Respiratory Rate 18 11/23/2019 2:35 AM CHILD WELFARE CONSULTANT Oxygen Saturation 99% 11/23/2019 2:35 AM CHILD WELFARE CONSULTANT Inhaled Oxygen Concentration - - Weight 101.2 kg (223 lb) 11/22/2019 9:51 PM CHILD WELFARE CONSULTANT Height - - Body Mass Index 37.11 04/15/2019 2:47 PM CDT documented in this encounter Discharge Instructions AttachmentsThe following attachments cannot be sent through Care Everywhere. Abdominal Pain, Adult ([place]raltarian)documented in this encounter Plan of Treatment Name Type Priority Associated Diagnoses Date/Ti ok CT ABDOMEN PELVIS W IMAGING STAT Lower abdominal pain 11/23/2019 12:40 AM CHILD WELFARE CONSULTANT CONTRAST GC & CHLAMYDIA AMPLIFIED LAB STAT Lower abdominal pain 11/23/2019 2:09 AM CHILD WELFARE CONSULTANT ASSAY Name Type Priority Associated Diagnoses Order S chedule GC & CHLAMYDIA AMPLIFIED LAB Routine Lower abdominal pain ONCE for 1 Occurrences ASSAY starting 2019 until 11/23/2019 Health Maintenance Due Date Last Done Comments DTaP,Tdap,and Td Vaccines (1 1986 08/07/2019 - Tdap) Breast Cancer Screening 08/31/2018 08/31/2017, (MAMMOGRAM) 08/07/2015, 05/16/2012 INFLUENZA VACCINE (#1) 2019 PNEUMOCOCCAL 0-64 YEARS Aged Out No longe r eligible based COMBINED SERIES on patient's age to complete this to pic documented as of this encounter Procedures Procedure Name Priority Date/Time Associated Comments Diagnosis TROPONIN I STAT 11/23/2019 1:45 Lower abdominal Results for this AM CHILD WELFARE CONSULTANT pain procedure are i n the results section. EKG-12 LEAD STAT 11/23/2019 1:24 AM CHILD WELFARE CONSULTANT CBC WITH DIFFERENTIAL STAT 11/22/2019 10:45 Lower abdominal Results for this PM CHILD WELFARE CONSULTANT pain procedure are i n the results section. POCT TEST ADDI 11/22/2019 10:45 Lower abdominal R esults for this PM CHILD WELFARE CONSULTANT pain procedure are i n the results section. CBC WITH DIFFERENTIAL Routine 11/22/2019 10:45 Lower abdominal Results for this PM CHILD WELFARE CONSULTANT pain procedure are i n the results section. COMP. METABOLIC PANEL STAT 11/22/2019 10:45 Lower abdominal Results for this (76836) PM CHILD WELFARE CONSULTANT pain procedure are i n the results section. LIPASE STAT 11/22/2019 10:45 Lower abdominal Results for this PM CHILD WELFARE CONSULTANT pain procedure are i n the results section. URINALYSIS STAT 11/22/2019 10:32 Lower abdominal Results for this PM CHILD WELFARE CONSULTANT pain procedure are i n the results section. documented in this encounter Results TROPONIN I (11/23/2019 1:45 AM CHILD WELFARE CONSULTANT) Pathologist Sig nature TROPONIN I 0.001 <=0.034 ng/mL [facility] Specimen Blood - VENOUS Narrative Performed At Equal or Less than 0.034 ng/ml---Normal [facility] Note: Cardiac troponin begins to rise 3-4 hours after the onset of ischemia. Repeat in 4-6 hours if the sample w as drawn within 3-4 hours of the onset of the symptom and found normal. Between 0.035 and 0.120 ng/mL--- Borderline. Questiona ble myocardial injury or necrosis Note: Serial measurement may be necessary to confirm o r exclude the diagnosis of myocardial injury or necrosis ; Clinical correlation (symptoms, EKGs, imaging studies, and others) required; Repeat in 4-6 hours if clinically indicated. Equal or Higher than 0.121 ng/mL---Abnormal. Myocardia l Injury or Necrosis Likely Biotin has been reported to cause a negative bias, int erpret results relative to patient's use of biotin. Performing Organization Address City/State/Zipcode Phone Number [facility] CLIA: [id number], [address] [place], [place] [address] [facility] CBC WITH DIFFERENTIAL (11/22/2019 10:45 PM CHILD WELFARE CONSULTANT) Pathologist Sig nature WBC 8.87 4.30 - 11.10 [facility] 10*3/L SERVICES RBC 4.73 3.93 - 5.25 [facility] 10*6/L SERVICES HGB 13.5 11.6 - 15.0 g/dL [facility] HCT 42.3 35.7 - 45.2 % [facility] MCV 89.4 80.6 - 95.5 fL [facility] MCH 28.5 25.9 - 32.8 pg [facility] MCHC 31.9 31.6 - 35.1 g/dL [facility] RDW-SD 43.9 39.0 - 49.9 fL [facility] RDW-CV 13.4 12.0 - 15.5 % [facility] PLT 368 (H) 166 - 358 [facility] 10*3/L SERVICES MPV 10.1 9.5 - 12.9 fL [facility] NRBC/100 WBC 0.0 0.0 - 10.0 /100 [facility] WBCs SERVICES NRBC x10^3 <0.01 10*3/L [facility] GRAN MAT (NEUT) % 64.4 % [facility] IMM GRAN % 0.30 % [facility] LYMPH % 25.4 % [facility] MONO % 8.8 % [facility] EOS % 0.6 % [facility] BASO % 0.5 % [facility] GRAN MAT x10^3(ANC) 5.72 1.88 - 7.09 [facility] 10*3/uL SERVICES IMM GRAN x10^3 0.03 0.00 - 0.06 [facility] 10*3/uL SERVICES LYMPH x10^3 2.25 1.32 - 3.29 [facility] 10*3/uL SERVICES MONO x10^3 0.78 0.33 - 0.92 [facility] 10*3/uL SERVICES EOS x10^3 0.05 0.03 - 0.39 [facility] 10*3/uL SERVICES BASO x10^3 0.04 0.01 - 0.07 [facility] 10*3/uL SERVICES Specimen Blood - VENOUS Performing Organization Address City/[facility]/Zipcode Phone Number [facility] CLIA: [id number], [address] [place] [phone] [facility] Lipase Serum (11/22/2019 10:45 PM CHILD WELFARE CONSULTANT) Pathologist Sig nature LIPASE 83 0 - 220 U/L [facility] Specimen Blood - VENOUS Performing Organization Address City/[facility]/Zipcode Phone Number [facility] CLIA: [id number], [address] [place] [phone] [facility] COMP. METABOLIC PANEL (30273) (11/22/2019 10:45 PM CHILD WELFARE CONSULTANT) NA 136 135 - 145 [facility] mmol/L SERVICES K 4.5 3.5 - 5.0 [facility] mmol/L SERVICES CL 103 98 - 108 mmol/L [facility] CO2 TOTAL 23 23 - 31 mmol/L [facility] AGAP 10 2 - 16 [facility] BUN 17 7 - 23 mg/dL [facility] GLUCOSE 95 70 - 110 mg/dL [facility] CREATININE 1.09 (H) 0.50 - 1.04 [facility] mg/dL SERVICES TOTAL BILI 0.6 0.1 - 1.1 mg/dL [facility] CALCIUM 8.6 8.6 - 10.6 [facility] mg/dL SERVICES T PROTEIN 7.0 6.3 - 8.2 g/dL [facility] ALBUMIN 4.2 3.5 - 5.0 g/dL [facility] ALK PHOS 59 34 - 122 U/L [facility] ALTv 13 5 - 35 U/L [facility] AST(SGOT) 17 13 - 40 U/L [facility] eGFR Calculation 54.5 mL/min/1.73m2 [facility] (Non- SERVICES [place]) eGFR Calculation 66.1 mL/min/1.73m2 [facility] () SERVICES Specimen Blood - VENOUS Narrative [place] [facility] Glomerular Filtration Rate (GFR) and St aging [facility] of Kidney Disease* + + +------- ------ + | GFR (mL/min/1.73 m2) | With Kidney Damage | Wi thout Kidney Damage + + +------- ------ + | >90 | Stage one | Normal + + +------- ------ + | 60-89 | Stage two | Decreased GFR + + +------- ------ + | 30-59 | Stage three | Stage three + + +------- ------ + | 15-29 | Stage four | Stage four + + +------- ------ + | <15 (or dialysis) | Stage five | Stage five + + +------- ------ + *Each stage assumes the associated GFR level has been in effect for at least three months. Stages 1 to 5, wit h or without kidney disease, indicate chronic kidney disease. Notes: Determination of stages one and two (with eGFR >59mL/min/1.73 m2) requires estimation of kidney damag e for at least three months as defined by structural or func tional abnormalities of the kidney, manifested by either: Pathological abnormalities or Markers of kidney damage (including abnormalities in the composition of the blo od or urine or abnormalities in imaging tests) . Performing Organization Address City/State/Zipcode Phone Number [facility] CLIA: [id number], [address] [place] [phone] [facility] POCT Test, Urine (11/22/2019 10:45 PM CHILD WELFARE CONSULTANT) Pathologist Sig nature POCT PREG NEGATIVE On board controls acceptable present with C Line Specimen Urine - URINE, CLEAN CATCH Urinalysis (11/22/2019 10:32 PM CHILD WELFARE CONSULTANT) Pathologist Sig Mobile[employer] APPEARANCE Clear Clear [facility] COLOR Yellow Yellow [facility] PH 5.0 4.8 - 8.0 [facility] SP GRAVITY 1.013 1.003 - 1.030 [facility] GLU U QUAL 50 mg/dL (A) Normal [facility] BLOOD 1+ (A) Negative [facility] KETONES 5 mg/dL (A) Negative [facility] PROTEIN Negative Negative [facility] UROBILIN 4.0 mg/dL (A) Normal [facility] BILIRUBIN Negative Negative [facility] NITRITE Negative Negative [facility] [place] Negative Negative [facility] RBC/HPF 1 0 - 3 HPF [facility] WBC/HPF 0 0 - 5 HPF [facility] BACTERIA Negative Negative [facility] SQ EPITH 2 <=2 HPF [facility] Specimen Urine - URINE, CLEAN CATCH Performing Organization Address City/State/Zipcode Phone Number [facility] CLIA: [id number], [address] [place], [place] [address] [facility] documented in this encounter Visit Diagnoses Diagnosis Lower abdominal pain - Primary Abdominal pain, other specified site documented in this encounter Administered Medications Medication Order MAR Action Action Date Dose Rate Site iohexol (OMNIPAQUE 350 BULK-150 Given 11/23/2019 12:35 AM CHILD WELFARE CONSULTANT 12 0 mL mL) injection 120 mL 120 mL, Intravenous, ONCE, 1 dose, 11/23/19 at 0045, Routine ketorolac (TORADOL) injection 30 mg Given 11/23/2019 12:50 AM CHILD WELFARE CONSULTANT 30 mg 30 mg, Slow IV Push, ONCE, 1 dose, 11/23/19 at 0000, Routine, body team member approving Restricted medication: EMERGENCY ROOM, morpHINE injection 4 mg Given 11/22/2019 11:13 PM CHILD WELFARE CONSULTANT 4 mg 4 mg, Slow IV Push, ONCE, 1 dose, 11/23/19 at 0015, STAT NaCl 0.9% (NS) bolus infusion New Bag 11/22/2019 11:13 PM CHILD WELFARE CONSULTANT 1,000 mL 999 mL/hr 1,000 mL at 999 mL/hr, 1,000 mL, IV Infusion, ONCE, 1 dose, 11/23/19 at 0015, STAT ondansetron (ZOFRAN (PF)) injection 4 mg Given 11/22/2019 11:13 PM CHILD WELFARE CONSULTANT 4 mg 4 mg, Slow IV Push, ONCE, 1 dose, 11/23/19 at 0015, ADDI documented in this encounter Advance Directives Type Date Recorded Patient Auto Locator Explanati on Advance Directives and Living Will Power of Reservoir Engineering Consultant"
--- OUTSIDE RECORDS SUMMARY | 2020-03-11 19:04 | XMS REPORT | Summary of Care ---
:1975 Author Organization [facility] - Health Address [address] [place] [address] Care Team Providers Name Role Phone Pcp, Does Not Have A Primary Care Provider Reason for Visit Reason Comments Sore Throat Auth/Cert Status Reason Specialty Diagnoses / Referred By Referred To Procedures Contact Contact Emergency Medicine Adc Em ergency Dept [address] [place] [address] [place] [address] Fax: Encounter Details Date Type Department Care Team Description 01/06/2020 Emergency ADC-Emergency Rodolfo Blackmon DO Acute viral syndrome (Primary Dx); Department [address] [place] [address]. Pharyngitis, unspecified etiology; [address] [place] [address] RT 0711 Laryngitis; [phone] [place] [address] Sinus congestion [phone] Allergies No Known Allergiesdocumented as of this encounter (statuses as of 01/06/2020) Medications Medication Sig Dispensed Refills Start Date End Date Status esomeprazole 40 mg Take 40 mg by 0 Active capsule mouth daily with breakfast. acetaminophen-codeine Take 1 [...] hours as needed for Pain (scale 1-3). ketorolac 10 mg Take 1 tablet 20 tablet 0 12/02/2019 Active tabletIndications: by mouth every Generalized abdominal 6 (six) hours pain as needed for Pain (scale 4-6). traMADol 50 mg Take 1 tablet 12 tablet 0 12/02/2019 Active tabletIndications: by mouth every Generalized abdominal 6 (six) hours pain as needed for Pain (scale 4-6). chlorpheniramine 4 mg Take 1 tablet 30 tablet 0 01/06/2020 Active tabletIndications: Sinus by mouth every congestion 6 (six) hours as needed for Allergies or Runny nose. 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 documented as of this encounter (statuses as of 01/06/2020) Resolved Problems Problem Noted Date Resolved Date Pain, acute postoperative 07/02/2015 02/13/2017 documented as of this encounter (statuses as of 01/06/2020) Immunizations Name Administration Dates Next Due Td [...] Sign Reading Time Taken Comments Blood Pressure 113/75 01/06/2020 8:57 AM BOBBIN INSPECTOR Pulse 89 01/06/2020 8:57 AM BOBBIN INSPECTOR Temperature 36.8 C (98.2 F) 01/06/2020 8:57 AM BOBBIN INSPECTOR Respiratory Rate 16 01/06/2020 8:57 AM BOBBIN INSPECTOR Oxygen Saturation 96% 01/06/2020 8:57 AM BOBBIN INSPECTOR Inhaled Oxygen Concentration - - Weight 95.3 kg (210 lb) 01/06/2020 8:57 AM BOBBIN INSPECTOR Height - - Body Mass Index 34.95 12/02/2019 3:44 PM BOBBIN INSPECTOR documented in this encounter Discharge Instructions Rodolfo Collins DO - 01/06/2020Encourage fluids. Take Cepacol for sore throat. Take all medications as prescribed. Return if you have difficulty swallowing or cannot tolerate eating or drinking. AttachmentsThe following attachments cannot be sent through Care Everywhere. Viral Syndrome (Adult) (Argent[place])documented in this encounter Plan of Treatment Name Type Priority Associated Diagnoses Date/Ti me THROAT CULTURE LAB STAT Pharyngitis, unspecified 0 01/06/2020 8:59 AM BOBBIN INSPECTOR etiology Name Type Priority Associated Diagnoses Order S chedule THROAT CULTURE LAB Routine Pharyngitis, unspecified O NCE for 1 Occurrences etiology starting 2019 until 01/06/2020 Health Maintenance Due Date Last Done Comments DTaP,Tdap,and Td Vaccines (1 1986 08/07/2019 - Tdap) Breast Cancer Screening 08/31/2018 08/31/2017, (MAMMOGRAM) 08/07/2015, 05/16/2012 INFLUENZA VACCINE (#1) 2019 PNEUMOCOCCAL 0-64 YEARS Aged Out No longe r eligible based COMBINED SERIES on patient's age to complete this to [facility] documented as of this encounter Procedures Procedure Name Priority Date/Time Associated Diagnosis Comme nts ADC,CLC OR LCC ONLY STAT 01/06/2020 8:59 AM Pharyngitis, R esults for this - INFLUENZA A & B BOBBIN INSPECTOR unspecified etiology pr ocedure are in DIRECT ANTIGEN the results section. RAPID STREP SCREEN STAT 01/06/2020 8:59 AM Pharyngitis, Re sults for this FOR GROUP A BOBBIN INSPECTOR unspecified etiology procedu re are in the results section. documented in this encounter Results ADC,CLC OR LCC ONLY - INFLUENZA A & B DIRECT ANTIGEN (01/06/2020 8:59 AM BOBBIN INSPECTOR) Pathologist Sig nature Influenza A Negative Negative [facility] Influenza B Negative Negative [facility] Specimen Swab - NARE, LEFT SIDE Performing Organization Address City/[facility] Phone Number [facility] CLIA: [id number], [address] [place], [place] [address] RAPID STREP SCREEN FOR GROUP A (01/06/2020 8:59 AM BOBBIN INSPECTOR) Pathologist Sig nature Streptococcus pyogenes Negative Negative [facility] (group A) antigen [facility] Specimen Swab - THROAT Performing Organization Address City/State/Zipcode Phone Number [facility] CLIA: [id number], [address] [place], [place] [address] documented in this encounter Visit Diagnoses Diagnosis Acute viral syndrome - Primary Pharyngitis, unspecified etiology Laryngitis Acute laryngitis, without mention of obs truction Sinus congestion Other diseases of nasal cavity and sinus es documented in this encounter Administered Medications Medication Order MAR Action Action Date Dose Rate Site dexamethasone (DECADRON PHOSPHATE) Given 01/06/2020 9:10 AM BOBBIN INSPECTOR 10 mg injection 10 mg 10 mg, Oral, ONCE, 1 dose, Mon01/06/20 at 0945, Routine ibuprofen (IBU) tablet 600 mg Given 01/06/2020 9:10 AM BOBBIN INSPECTOR 600 mg 600 mg, Oral, ONCE, 1 dose, Mon01/06/20 at 0945, ADDI documented in this encounter Advance Directives Type Date Recorded Patient Idea Man Explanati on Advance Directives and Living Will Power of Salt Manager
--- OUTSIDE RECORDS SUMMARY | 2020-03-11 19:04 | XMS REPORT | Summary of Care ---
:1975 Author Organization [facility] - Health Address [address] [place] [address] Care Team Providers Name Role Phone Pcp, Does Not Have A Primary Care Provider Encounter Details Date Type Department Care Team Description 01/06/2020 Orders Only [facility] Doctor Unassigned, No [address] [facility] [place] [address] [address] [phone] Allergies No Known Allergiesdocumented as of this [...] Active tabletIndications: by mouth every Generalized abdominal pain 6 (six) hours as needed for Pain (scale 4-6). traMADol 50 mg Take 1 tablet 12 tablet 0 12/02/2019 Active tabletIndications: by mouth every Generalized abdominal pain 6 (six) hours as needed for Pain (scale 4-6). 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 documented as of this encounter (statuses [...] of this encounter Last Filed Vital Signs Not on filedocumented in this encounter Plan of Treatment Health Maintenance Due Date Last Done Comments DTaP,Tdap,and Td Vaccines (1 1986 08/07/2019 - Tdap) Breast Cancer Screening 08/31/2018 08/31/2017, (MAMMOGRAM) 08/07/2015, 05/16/2012 INFLUENZA VACCINE (#1) 2019 PNEUMOCOCCAL 0-64 YEARS Aged Out No longe r eligible based COMBINED SERIES on patient's age to complete this to [facility] documented as of this encounter Procedures Procedure Name Priority Date/Time Associated Diagnosis Comme nts CONSENT/REFUSAL FOR Routine 01/06/2020 8:31 AM HEALTH EDUCATION AIDE DIAGNOSIS AND TREATMENT documented in this encounter Results Not on filedocumented in this encounter Advance Directives Type Date Recorded 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
--- OUTSIDE RECORDS SUMMARY | 2020-03-11 19:04 | XMS REPORT | Summary of Care ---
:1975 Author Organization [facility] - Health Address [address] [place] [address] Care Team Providers Name Role Phone Pcp, Does Not Have A Primary Care Provider Reason for Referral (STAT) Status Reason Specialty Diagnoses / Referred By Referred To Procedures Contact Contact New Request IM-INTERNAL Diagnoses Generalized abdominal pain Roberto Cespedes, MEDICINE Procedures Discharge Follow-Up: Specialty Service IM-INTERNAL MEDICINE; 3-5 Days ELECTRONIC SCALE SUBASSEMBL[address] [phone] Reason for Visit Reason Comments Abdominal Pain RLQ LOW BACK PAIN Auth/Cert Status Reason Specialty Diagnoses / Referred By Referred To Procedures Contact Contact Emergency Medicine Adc Em ergency Dept [address] [facility] [place] [address] Fax: Encounter Details Date Type Department Care Team Description 12/02/2019 Emergency ADC-Emergency Roberto Cespedes F PROCESSING INSPECTOR Generalized abdominal Department [address] [place] [address] pain (Primary Dx) [address] 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 documented as of this encounter (statuses as of 12/02/2019) Resolved Problems Problem Noted Date Resolved Date Pain, acute postoperative 07/02/2015 02/13/2017 documented as of this encounter (statuses as of 12/02/2019) Immunizations Name Administration Dates Next Due Td [...] Sign Reading Time Taken Comments Blood Pressure 111/80 12/02/2019 8:00 PM ALIGNER BARREL AND RECEIVER Pulse 59 12/02/2019 8:00 PM ALIGNER BARREL AND RECEIVER Temperature 36.7 C (98.1 F) 12/02/2019 3:44 PM ALIGNER BARREL AND RECEIVER Respiratory Rate 20 12/02/2019 7:09 PM ALIGNER BARREL AND RECEIVER Oxygen Saturation 99% 12/02/2019 7:09 PM ALIGNER BARREL AND RECEIVER Inhaled Oxygen Concentration - - Weight 95.3 kg (210 lb) 12/02/2019 3:44 PM ALIGNER BARREL AND RECEIVER Height 165.1 cm (5' 5") 12/02/2019 3:44 PM ALIGNER BARREL AND RECEIVER Body Mass Index 34.95 12/02/2019 3:44 PM ALIGNER BARREL AND RECEIVER documented in this encounter Discharge Instructions Roberto Hill FNP - 12/02/2019DIAGNOSIS 1. Abdominal pain NO LIFE-THREATENING FINDINGS ON TODAY'S EXAM. PROCEDURES IN THE ER TODAY: Labs, IV, medications MEDICATIONS ADMINISTERED IN THE ER TODAY: Zofran, morphine, toradol YOUR PRESCRIPTIONS AND [id number] MEDICATION RECOMMENDATIONS: Toradol Tramadol FOLLOW-UP RECOMMENDATIONS: RECOMMEND FOLLOW-UP WITH A PRIMARY CARE PROVIDER OR SPECIALIST IN 2-5 DAYS, ESPECIALLY IF NO IMPROVEMENT IN SYMPTOMS. MAY FOLLOW-UP WITH A PROVIDER OF YOUR CHOICE, SUCH : 1. A PHYSICIAN OF YOUR CHOICE 2. [facility], . LOCATIONS IN [facility] 3. [facility], [address] [place] [address]; [phone] OR, IF YOU WISH TO FOLLOW-UP WITHIN THE [facility], MAY TRY THESE OPTIONS (CLINIC APPOINTMENTS AVAILABLE ON [id number] BASIS): 1. SCHEDULE AN APPOINTMENT ONLINE AT WWW[facility] 2. OR CALL THE [facility] ACCESS CENTER AT OR 3. OR CALL YOUR [facility] PHYSICIAN'S OFFICE DIRECTLY IF YOU ARE ALREADY AN ESTABLISHED [facility] PATIENT. RETURN TO ER FOR WORSENING OF SYMPTOMS. AttachmentsThe following attachments cannot be sent through Care Everywhere. Abdominal Pain, Adult (British)documented in this encounter Plan of Treatment Health [...] Name Priority Date/Time Associated Diagnosis Comme nts CBC WITH DIFFERENTIAL STAT 12/02/2019 6:34 Generalized Re sults for this PM ALIGNER BARREL AND RECEIVER abdominal pain procedure are in the results section. URINALYSIS STAT 12/02/2019 6:34 Generalized Results for this PM ALIGNER BARREL AND RECEIVER abdominal pain procedure are in the results section. CBC WITH DIFFERENTIAL STAT 12/02/2019 6:34 Generalized Re sults for this PM ALIGNER BARREL AND RECEIVER abdominal pain procedure are in the results section. COMP. METABOLIC PANEL STAT 12/02/2019 6:34 Generalized Re sults for this ([id number]) PM ALIGNER BARREL AND RECEIVER abdominal pain procedure are in the results section. LIPASE STAT 12/02/2019 6:34 Generalized Results for this PM ALIGNER BARREL AND RECEIVER abdominal pain procedure are in the results section. CONSENT/REFUSAL FOR Routine 12/02/2019 3:35 DIAGNOSIS AND PM ALIGNER BARREL AND RECEIVER TREATMENT documented in this encounter Results CBC WITH DIFFERENTIAL (12/02/2019 6:34 PM ALIGNER BARREL AND RECEIVER) Pathologist Sig nature WBC 8.19 4.30 - 11.10 [facility] 10*3/L [facility] RBC 4.88 3.93 - 5.25 [facility] 10*6/L [facility] HGB 13.8 11.6 - 15.0 g/dL [facility] HCT 43.6 35.7 - 45.2 % [facility] MCV 89.3 80.6 - 95.5 fL [facility] MCH 28.3 25.9 - 32.8 pg [facility] MCHC 31.7 31.6 - 35.1 g/dL [facility] RDW-SD 43.0 39.0 - 49.9 fL [facility] RDW-CV 13.2 12.0 - 15.5 % [facility] PLT 386 (H) 166 - 358 [facility] 10*3/L [facility] MPV 10.6 9.5 - 12.9 fL [facility] NRBC/100 WBC 0.0 0.0 - 10.0 /100 [facility] W[address] [facility] NRBC x10^3 <0.01 10*3/L [facility] GRAN MAT (NEUT) % 65.4 % [facility] IMM GRAN % 0.40 % [facility] LYMPH % 25.0 % [facility] MONO % 8.1 % [facility] EOS % 0.4 % [facility] BASO % 0.7 % [facility] GRAN MAT x10^3(ANC) 5.36 1.88 - 7.09 [facility] 10*3/uL [facility] IMM GRAN x10^3 0.03 0.00 - 0.06 [facility] 10*3/uL [facility] LYMPH x10^3 2.05 1.32 - 3.29 [facility] 10*3/uL [facility] MONO x10^3 0.66 0.33 - 0.92 [facility] 10*3/uL [facility] EOS x10^3 0.03 0.03 - 0.39 [facility] 10*3/uL [facility] BASO x10^3 0.06 0.01 - 0.07 [facility] 103/uL [facility] Specimen Blood - VENOUS Performing Organization Address [facility] Phone Number [facility] CLIA: [id number], [address] [place] [address] URINALYSIS (12/02/2019 6:34 PM ALIGNER BARREL AND RECEIVER) Pathologist Sig nature APPEARANCE Turbid (A) Clear [facility] COLOR Yellow Yellow [facility] PH 5.0 4.8 - 8.0 [facility] SP GRAVITY 1.026 1.003 - 1.030 [facility] GLU U QUAL Normal Normal [facility] BLOOD Negative Negative [facility] KETONES Negative Negative [facility] PROTEIN Negative Negative [facility] UROBILIN Normal Normal [facility] BILIRUBIN Negative Negative [facility] NITRITE Negative Negative [facility] [place] Negative Negative [facility] RBC/HPF 0 0 - 3 HPF [facility] WBC/HPF 0 0 - 5 HPF [facility] BACTERIA Moderate (A) Negative [facility] MUCOUS Marked (A) Negative LPF [facility] SQ EPITH 15 HPF [facility] CA OXALATE 10 (H) <=1 HPF [facility] Specimen Urine - URINE, CLEAN CATCH Performing Organization Address [facility] Phone Number [facility] CLIA: [id number], [address] [place] [address] [address] LIPASE (12/02/2019 6:34 PM ALIGNER BARREL AND RECEIVER) Pathologist Sig nature LIPASE 72 0 - 220 U/L [facility] Specimen Blood - VENOUS Performing Organization Address City/State/Zipcode Phone Number [facility] CLIA: [id number], [address] [place], [place] [address] COMP. METABOLIC PANEL ([id number]) (12/02/2019 6:34 PM ALIGNER BARREL AND RECEIVER) Pathologist Sig nature NA 136 135 - 145 [facility] mmol/L HOS[facility]ITAL [facility] K 3.7 3.5 - 5.0 [facility] mmol/L [facility] CL 104 98 - 108 mmol/L [facility] CO2 TOTAL 23 23 - 31 mmol/L [facility] AGAP 9 2 - 16 [facility] BUN 18 7 - 23 mg/dL [facility] GLUCOSE 97 70 - 110 mg/dL [facility] CREATININE 0.90 0.50 - 1.04 [facility] mg/dL [facility] TOTAL BILI 0.5 0.1 - 1.1 mg/dL [facility] CALCIUM 8.5 (L) 8.6 - 10.6 [facility] mg/dL [facility] T PROTEIN 7.6 6.3 - 8.2 g/dL [facility] ALBUMIN 4.2 3.5 - 5.0 g/dL [facility] ALK PHOS 70 34 - 122 U/L [facility] ALTv 12 5 - 35 U/L [facility] AST(SGOT) 24 13 - 40 U/L [facility] eGFR Calculation 68.0 mL/min/1.73m2 [facility] (Non[facility] LABORATORY Cameroonian) eGFR Calculation 82.4 mL/min/1.73m2 [facility] () [facility] Specimen Blood - VENOUS Narrative Performed At Association of Glomerular Filtration Rate (GFR) [facility] and Staging of Kidney Disease* + + +- + | GFR (mL/min/1.73 m2) | With Kidney Damage | Without Kidney Damage + + +- + | >90 | Stage one | Normal + + +- + | 60-89 | Stage two | Decreased GFR + + +- + | 30-59 | Stage three | Stage three + + +- + | 15-29 | Stage four | Stage four + + +- + | <15 (or dialysis) | Stage five | Stage five + + +- + *Each stage assumes the associated GFR level has been in effect for at least three months. Stages 1 to 5, with or without kidney disease, indicate chronic kidney disease. Notes: Determination of stages one and two (with eGFR >59mL/min/1.73 m2) requires estimation of kidney damage for at least three months as defined by structural or functional abnormalities of the kidney, manifested by either: Pathological abnormalities or Markers of kidney damage (including abnormalities in the composition of the blood or urine or abnormalities in imaging tests). Performing Organization Address City/State/Zipcode Phone Number [facility] CLIA: [id number], [address] [place], [place] [address] documented in this encounter Visit Diagnoses Diagnosis Generalized abdominal pain - Primary Abdominal pain, generalized documented in this encounter Administered Medications Medication Order MAR Action Action Date Dose Rate Site ketorolac (TORADOL) injection 30 Given 12/02/2019 7:11 PM ALIGNER BARREL AND RECEIVER 3 0 mg mg 30 mg, Slow IV Push, ONCE, 1 dose, Mon12/02/19 at 1999, Routine, mathematics faculty member approving Restricted medication: EMERGENCY ROOM, morpHINE injection 4 mg Given 12/02/2019 7:11 PM ALIGNER BARREL AND RECEIVER 4 mg 4 mg, Slow IV Push, ONCE, 1 dose, Mon12/02/19 at 1999, STAT ondansetron (ZOFRAN (PF)) injection 4 mg Given 12/02/2019 7:11 PM ALIGNER BARREL AND RECEIVER 4 mg 4 mg, Slow IV Push, ONCE, 1 dose, Mon12/02/19 at 1999, ADDI documented in this encounter Advance Directives Type Date Recorded 

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
--- NOTE | 2020-03-12 10:30 | EDPHYS ---
Physician Documentation [facility] Name: Dara Looney Age: 44 yrs Sex: Female : 1975 Arrival Date: 03/11/2020 Time: 19:02 Bed 25 Private MD: ED Physician Caleb Pearce HPI: 03/11 19:28 This 44 yrs old Female presents to ER via Ambulatory with complaints of jmm Finger Injury. 19:28 The patient or guardian reports injury, pain. Onset: The symptoms/episode jmm began/occurred acutely, just prior to arrival. Modifying factors: The symptoms are alleviated by nothing, the symptoms are aggravated by movement. Associated signs and symptoms: Pertinent negatives: numbness distally, tingling distally. This is a 44 year old female that presents to the ED with complaints of left 3rd finger pain. Patient states as she was moving boxes she smashed her finger against the door frame as she was crossing. . Historical: - Allergies: 19:10 No Known Allergies; ao - Home Meds: 19:10 Nexium 40 mg Oral cpDR 1 cap once daily [Active]; ao - PMHx: 19:10 hiatal hernia; Migraines; [place]; ao - PSHx: 19:10 Cholecystectomy; Tubal ligation; Tonsillectomy; ao - Immunization history:: Adult Immunizations not immunized, Last tetanus immunization: up to date. - Social history:: Smoking status: Patient denies any tobacco usage or history of. Patient/guardian denies using tobacco, Patient uses alcohol, occasionally. Patient/guardian denies using street drugs. ROS: 19:28 Constitutional: Negative for fever, chills, and weight loss, Cardiovascular: Negative jmm for chest pain, palpitations, and edema, Respiratory: Negative for shortness of breath, cough, wheezing, and pleuritic chest pain. 19:28 MS/extremity: Positive for injury or acute deformity, pain. 19:28 All other systems are negative. Exam: 19:28 Constitutional: This is a well developed, well nourished patient who is awake, alert, jmm and in no acute distress. Head/Face: atraumatic. Eyes: EOMI, no conjunctival erythema appreciated ENT: Moist Mucus Membranes Neck: Trachea midline, Supple Chest/axilla: Normal chest wall appearance and motion. Cardiovascular: Regular rate and rhythm. No edema appreciated Respiratory: Normal respirations, no respiratory distress appreciated Abdomen/GI: Non distended, soft Back: Normal ROM Skin: General appearance color normal 19:28 MS/ Extremity: Moves all extremities, no obvious deformities appreciated, no edema noted to the lower extremities Neuro: Awake and alert, normal gait Psych: Behavior is normal, Mood is normal, Patient is cooperative and pleasant 19:28 Musculoskeletal/extremity: pain on palpation of the left 3rd finger at the PIP, < 2 sec dist cap refill, full extension appreciated, painful flexion, NVI. Vital Signs: 19:05 BP 111 / 73; Pulse 71; Resp 16; Temp 97.9(TE); Pulse Ox 100% ; Weight 92.53 kg; Height ao 5 ft. 5 in. (165.10 cm); Pain 9/10; 21:02 BP 110 / 70; Pulse 70; Resp 14; Pulse Ox 99% on R/A; Pain 8/10; ls4 19:05 Body Mass Index 33.95 (92.53 kg, 165.10 cm) ao MDM: 19:27 Patient medically screened. [facility] 20:29 Data reviewed: vital signs, nurses notes. Counseling: I had a detailed discussion with guru the patient and/or guardian regarding: the historical points, exam findings, and any diagnostic results supporting the discharge/admit diagnosis, radiology results, the need for outpatient follow up, to return to the emergency department if symptoms worsen or persist or if there are any questions or concerns that arise at home. ED course: Patient advised to follow up with pcp or hand for reevaluation. xray negative. advised of the possibility of soft tissue/ligament injury. Patient understood and agrees with the plan of care. . 03/11 20:10 Order name: Finger Splint; Complete Time: 23:48 [facility] Administered Medications: No medications were administered Disposition: 22:07 Co-signature as Attending Physician, Caleb Pearce MD. rn Disposition: 03/11/20 20:31 Discharged to Home. Impression: Other sprain of left middle finger. - Condition is Stable. - Discharge Instructions: Finger Sprain, Adult. - Medication Reconciliation Form, Thank You Letter, Antibiotic Education, Prescription Opioid Use form. - Follow up: Private Physician; When: 2 - 3 days; Reason: Recheck today's complaints, Continuance of care, Re-evaluation by your physician. Follow up: Keshawn Barreto MD; When: 2 - 3 days; Reason: Recheck today's complaints, Continuance of care, Re-evaluation by your physician. Signatures: Rom Aguilar PA PA jmm Nieto, Roman, MD MD rn Ortiz, Alex, RN RN ao Stewart, Lisa, RN RN ls4 Corrections: (The following items were deleted from the chart) 21:09 20:31 03/11/2020 20:31 Discharged to Home. Impression: Other sprain of left middle ls4 finger. Condition is Stable. Forms are Medication Reconciliation Form, Thank You Letter, Antibiotic Education, Prescription Opioid Use. Follow up: Private Physician; When: 2 - 3 days; Reason: Recheck today's complaints, Continuance of care, Re-evaluation by your physician. Follow up: Keshawn Barreto; When: 2 - 3 days; Reason: Recheck today's complaints, Continuance of care, Re-evaluation by your physician. guru
--- NOTE | 2020-03-12 10:30 | ER ---
Nurse's Notes [facility] Name: Dara Looney Age: 44 yrs Sex: Female : 1975 Arrival Date: 03/11/2020 Time: 19:02 Bed 25 Private MD: Diagnosis: Other sprain of left middle finger Presentation: 03/11 19:05 Chief complaint: Patient states: Patient left middle finger got in between boxes and ao complains of pain. Coronavirus screen: Proceed with normal triage. Ebola Screen: Patient negative for fever greater than or equal to 101.5 degrees Fahrenheit, and additional compatible Ebola Virus Disease symptoms Patient denies exposure to infectious person. Patient denies travel to an Ebola-affected area in the 21 days before illness onset. Initial Sepsis Screen: Does the patient meet any 2 criteria? No. Patient's initial sepsis screen is negative. Does the patient have a suspected source of infection? No. Patient's initial sepsis screen is negative. Risk Assessment: Do you want to hurt yourself or someone else? Patient reports no desire to harm self or others. Onset of symptoms was March 11, 2020 at 18:30. 19:05 Method Of Arrival: Ambulatory ao 19:05 Acuity: SHEILA 4 ao Triage Assessment: 23:35 General: Appears in no apparent distress. comfortable, Behavior is calm, cooperative. ls4 Pain: Complains of pain in dorsal aspect of middle phalanx of left middle finger Pain currently is 9 out of 10 on a pain scale. Neuro: No deficits noted. Cardiovascular: No deficits noted. Respiratory: No deficits noted. Musculoskeletal: No deficits noted. Circulation, motion, and sensation intact. Capillary refill < 3 seconds, Range of motion: intact in all extremities, Swelling present in dorsal aspect of middle phalanx of left middle finger. Injury Description: Bruise sustained to dorsal aspect of middle phalanx of left middle finger. Historical: - Allergies: 19:10 No Known Allergies; ao - Home Meds: 19:10 Nexium 40 mg Oral cpDR 1 cap once daily [Active]; ao - PMHx: 19:10 hiatal hernia; Migraines; [place]; ao - PSHx: 19:10 Cholecystectomy; Tubal ligation; Tonsillectomy; ao - Immunization history:: Adult Immunizations not immunized, Last tetanus immunization: up to date. - Social history:: Smoking status: Patient denies any tobacco usage or history of. Patient/guardian denies using tobacco, Patient uses alcohol, occasionally. Patient/guardian denies using street drugs. Screenin:28 Abuse screen: Denies threats or abuse. Denies injuries from another. Nutritional ls4 screening: No deficits noted. Tuberculosis screening: No symptoms or risk factors identified. Fall Risk None identified. Assessment: 20:00 Reassessment: Patient appears in no apparent distress at this time. Patient and/or ls4 family updated on plan of care and expected duration. Pain level reassessed. Patient is alert, oriented x 3, equal unlabored respirations, skin warm/dry/pink. Vital Signs: 19:05 BP 111 / 73; Pulse 71; Resp 16; Temp 97.9(TE); Pulse Ox 100% ; Weight 92.53 kg; Height ao 5 ft. 5 in. (165.10 cm); Pain 9/10; 21:02 BP 110 / 70; Pulse 70; Resp 14; Pulse Ox 99% on R/A; Pain 8/10; ls4 19:05 Body Mass Index 33.95 (92.53 kg, 165.10 cm) ao ED Course: 19:02 Patient arrived in ED. ag5 19:09 Triage completed. ao 19:10 Arm band placed on right wrist. Patient placed in an exam room, Patient notified of ao wait time. 19:24 Rom Aguilar PA is PHCP. [facility] 19:24 Caleb Pearce MD is Attending Physician. [facility] 19:26 Lisandra Cedeno, DENNIS is Primary Nurse. ls4 19:28 Patient has correct armband on for positive identification. Bed in low position. Call ls4 light in reach. Side rails up X 1. Pulse ox on. NIBP on. Warm blanket given. Verbal reassurance given. Diet: Patient is NPO. 19:28 No provider procedures requiring assistance completed. Patient did not have IV access ls4 during this emergency room visit. 20:30 Keshawn Barreto MD is Referral Physician. [facility] 23:39 FINGER SPLINT APPLIED TO LEFT HAND MIDDLE FINGER. CMS INTACT. ls4 Administered Medications: No medications were administered Outcome: 20:31 Discharge ordered by . ghanshyam 21:09 Patient left the ED. ls4 21:09 Condition: stable ls4 21:09 Discharged to home ambulatory. ls4 21:09 Discharge instructions given to patient, Instructed on discharge instructions, follow up and referral plans. medication usage, Demonstrated understanding of instructions, follow-up care, medications, splint care. Signatures: Rom Aguilar PA PA jmm Ortiz, Alex, RN RN Lisandra Guzman RN RN ls4 Delores Costa ag5 Corrections: (The following items were deleted from the chart) 23:39 23:37 Condition: stable ls4 ls4 23:39 23:37 Discharged to home ambulatory, ls4 ls4 23:39 23:37 Discharge instructions given to patient, Instructed on discharge instructions, ls4 follow up and referral plans. medication usage, Demonstrated understanding of instructions, follow-up care, medications, splint care, ls4
[2020-03-12 23:22] VITALS: BP 111/73; TEMP 97.9; O2SAT 100
== END 2020-03-11 21:09 | disposition home or self-care (01) ==
LOC: ER 19:00
DX: S63.693A Other sprain of left middle finger, initial encounter (principal); X58.XXXA Exposure to other specified factors, initial encounter; Y93.89 Activity, other specified; Y92.9 Unspecified place or not applicable
CPT/HCPCS: 99283

== ENCOUNTER 2020-05-22 15:22 | Emergency (ER) | payer SELFPAY ==
--- OUTSIDE RECORDS SUMMARY | 2020-05-22 15:30 | XMS REPORT | Continuity of Care Document ---
:1975 Author Organization [facility] t Address [address] [place] [address] [address] [place] [address] Care Team Providers Name Role Phone Singer SAWYER Attending Clinician Doctor Unassigned, Name Attending Clinician Unavailable Abimbola Joseph Attending Clinician Kristofer Viera MD Attending Clinician Problems This patient has no known problems. Allergies, Adverse Reactions, Alerts This patient has no known allergies or adverse reactions. Medications This patient has no known medications. Procedures This patient has no known procedures. Encounters Start End Encounter Admission Attending Care Care Encounter Source Date/Time Date/Time Type Type Clinicians Facility Department ID 2020-01-06 2020-01-06 Emergency Singer [facility] [id number] 09:00:16 11:05:00 Rodolfo Whitten [id number] [place] [id number] [place] [id number] 2020-01-06 2020-01-06 Orders Doctor JAEGER [id number] 00:00:00 00:00:00 Only UnassignedLILI [id number] [place] [facility] [id number] 2019-12-02 2019-12-02 Emergency Roberto Cespedes [facility] [id number] 17:51:42 20:56:00 Abimbola Fish [id number] [place] [id number] [place] [id number] 2019-11-22 2019-11-23 Emergency Maximiliano, TRAUMA [id number] 21:52:37 02:47:00 [facility] [id number] Results This patient has no known results.
[2020-05-22 16:44] LABS: Absolute Lymphocytes (CBC) 2.5 K/uL (0.7-4.9); Basophils % 0.6 % (0-1.3); Hematocrit 40.6 % (36.0-45.0); Lymphocytes % 25.7 % (15.3-44.8); MPV 8.3 fL (7.6-11.3); RBC Red Blood Cell Count 4.76 M/uL (3.86-4.86)
[2020-05-22 16:53] LABS: Potassium 3.4 mmol/L (3.5-5.1)
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
[2020-05-22] MEDS ORDERED: HYDROCODONE/APAP 10/325 TAB ONE (17:06)
[2020-05-22] MEDS ORDERED: POTASSIUM CL SA 10 MEQ TAB PO ONE (17:16)
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
[2020-05-22 19:51] VITALS: BP 107/68; TEMP 98.4; O2SAT 98
== END 2020-05-22 17:36 | disposition home or self-care (01) ==
LOC: ER 15:22
DX: G89.11 Acute pain due to trauma (principal); V59.40XA Driver of pick-up truck or van injured in collision with unspecified motor vehicles in traffic accident, initial encounter; I25.2 Old myocardial infarction
CPT/HCPCS: 36415; 71260; 74177; 80048; 82565; 85025; 99284; Q9967

== ENCOUNTER 2022-06-24 12:42 | Emergency (ER) | payer OTHER ==
--- OUTSIDE RECORDS SUMMARY | 2022-06-24 12:51 | XMS REPORT | Continuity of Care Document ---
:1975 Author Organization [facility] t Address [address] [place] [address] Care Team Providers Name Role Phone Stephanie Nicholas Attending Clinician Unavailable Stephanie Nicholas Attending Clinician Unavailable Yahir Madden Attending Clinician Unavailable Provider, Express Lola Attending Clinician Unavailable Jocelyne Campbell Attending Clinician Unavailable Alireza Sanchez Attending Clinician Unavailable Roberto Mahmood Attending Clinician Unavailable Emigdio Lozano Attending Clinician Unavailable Libra Mahajan Attending Clinician Unavailable Bibi Jean Attending Clinician Unavailable Isrrael Owen Attending Clinician Unavailable Roberto Mcintosh Attending Clinician Unavailable Maurice Morfin Attending Clinician Unavailable Elayne Dennis Attending Clinician Unavailable Amos Meza Attending Clinician Unavailable Rodolfo Blackmon DO Attending Clinician Doctor Unassigned, [place] Attending Clinician Unavailable Roberto Joseph Attending Clinician Zuleyka Viera MD Attending Clinician Garfield Saxena Admitting Clinician Unavailable Payers Payer Name Policy Type Policy Number Effective Date Expiration Date S ourzoey Problems Condition Condition Condition Status Onset Resolution Last Treating Co mments Source Name Details Category Date Date Treatment Clinician Date COVID-[address] [facility] [facility] [place] ([place] Hypotensio [facility] [place] [facility] Allergies, Adverse Reactions, Alerts Allergy Allergy Status Severity Reaction(s) Onset Inactive Treating Comm ents Source Name Type Date Date Clinician No Known DA Active [facility] R[facility] NO KNOWN Drug Active [facility] ALLERGIE Class [facility] of S [facility] Social History Social Habit Start Date Stop Date Quantity Comments Source Sex Assigned At [address] [facility] [facility] - 00:[facility]:00 00:00:00 [place] ([place]) Smoking Status Start Date Stop Date Source Unknown if ever smoked [facility] [place] ([place]) Medications Ordered Filled Start Stop Current Ordering Indication Dosage Frequency Signature Comments Components Source Medication Medication Date Date Medication? Clinician (SIG) Name Name Hydrocodone No 1TAB Every [address] Bit/Apap 1-22 Hours [facility] - 5/325 20:14: [facility] ([place]) 5 19 [facility] MG/325 MG ([place]) Tab Vital Signs Vital Name Observation Time Observation Value Comments Source NEWS Pulse 2021-09-11 22:47:30 51-90 /min NEWS Respirations 2021-09-11 22:47:30 12-20 /min NEWS Systolic Blood Pressure 2021-09-11 22:47:30 91-100 mm[Hg] NEWS Temperature 2021-09-11 22:47:30 36.1-38.0 C Weight Bearing Status 2021-09-11 22:47:30 Not specified Body Mass Index (BMI) 2021-09-11 22:47:30 33.9 Height 2021-09-11 22:47:30 64.96 Temperature 2021-09-11 22:47:30 98.4 Weight 2021-09-11 22:47:30 3.263 NEWS Pulse 2021-09-11 22:47:29 51-90 /min NEWS Respirations 2021-09-11 22:47:29 12-20 /min NEWS Systolic Blood Pressure 2021-09-11 22:47:29 91-100 mm[Hg] NEWS Temperature 2021-09-11 22:47:29 36.1-38.0 C Weight Bearing Status 2021-09-11 22:47:29 Not specified Body Mass Index (BMI) 2021-09-11 22:47:29 33.9 Height 2021-09-11 22:47:29 64.96 Temperature 2021-09-11 22:47:29 98.4 Weight 2021-09-11 22:47:29 3.263 NEWS Pulse 2021-09-11 20:16:09 51-90 /min NEWS Respirations 2021-09-11 20:16:09 12-20 /min NEWS Systolic Blood Pressure 2021-09-11 20:16:09 91-100 mm[Hg] NEWS Temperature 2021-09-11 20:16:09 36.1-38.0 C Weight Bearing Status 2021-09-11 20:16:09 Not specified Body Mass Index (BMI) 2021-09-11 20:16:09 33.9 Height 2021-09-11 20:16:09 64.96 Temperature 2021-09-11 20:16:09 98.4 Weight 2021-09-11 20:16:09 3.263 NEWS Pulse 2021-09-11 20:08:05 51-90 /min NEWS Respirations 2021-09-11 20:08:05 12-20 /min NEWS Systolic Blood Pressure 2021-09-11 20:08:05 91-100 mm[Hg] NEWS Temperature 2021-09-11 20:08:05 36.1-38.0 C Weight Bearing Status 2021-09-11 20:08:05 Not specified Body Mass Index (BMI) 2021-09-11 20:08:05 33.9 Height 2021-09-11 20:08:05 64.96 Temperature 2021-09-11 20:08:05 98.4 Weight 2021-09-11 20:08:05 3.263 NEWS Pulse 2021-09-11 20:07:08 51-90 /min NEWS Respirations 2021-09-11 20:07:08 12-20 /min NEWS Systolic Blood Pressure 2021-09-11 20:07:08 101-110 mm[Hg] NEWS Temperature 2021-09-11 20:07:08 36.1-38.0 C Weight Bearing Status 2021-09-11 20:07:08 Not specified Body Mass Index (BMI) 2021-09-11 20:07:08 33.9 Height 2021-09-11 20:07:08 64.96 Temperature 2021-09-11 20:07:08 97.9 Weight 2021-09-11 20:07:08 3.263 NEWS Pulse 2021-09-11 20:06:44 51-90 /min NEWS Respirations 2021-09-11 20:06:44 12-20 /min NEWS Systolic Blood Pressure 2021-09-11 20:06:44 101-110 mm[Hg] NEWS Temperature 2021-09-11 20:06:44 36.1-38.0 C Weight Bearing Status 2021-09-11 20:06:44 Not specified Body Mass Index (BMI) 2021-09-11 20:06:44 33.9 Height 2021-09-11 20:06:44 64.96 Temperature 2021-09-11 20:06:44 97.7 Weight 2021-09-11 20:06:44 3.263 NEWS Pulse 2021-09-11 20:04:20 51-90 /min NEWS Respirations 2021-09-11 20:04:20 12-20 /min NEWS Systolic Blood Pressure 2021-09-11 20:04:20 111-219 mm[Hg] NEWS Temperature 2021-09-11 20:04:20 36.1-38.0 C Weight Bearing Status 2021-09-11 20:04:20 Not specified Body Mass Index (BMI) 2021-09-11 20:04:20 33.9 Height 2021-09-11 20:04:20 64.96 Temperature 2021-09-11 20:04:20 98.6 Weight 2021-09-11 20:04:20 3.263 NEWS Pulse 2021-09-11 19:38:34 51-90 /min NEWS Respirations 2021-09-11 19:38:34 12-20 /min NEWS Systolic Blood Pressure 2021-09-11 19:38:34 101-110 mm[Hg] NEWS Temperature 2021-09-11 19:38:34 36.1-38.0 C Body Mass Index (BMI) 2021-09-11 19:38:34 33.9 Height 2021-09-11 19:38:34 64.96 Temperature 2021-09-11 19:38:34 98.5 Weight 2021-09-11 19:38:34 3.263 NEWS Pulse 2021-09-11 19:38:33 51-90 /min NEWS Respirations 2021-09-11 19:38:33 12-20 /min NEWS Systolic Blood Pressure 2021-09-11 19:38:33 101-110 mm[Hg] NEWS Temperature 2021-09-11 19:38:33 36.1-38.0 C Body Mass Index (BMI) 2021-09-11 19:38:33 33.9 Height 2021-09-11 19:38:33 64.96 Temperature 2021-09-11 19:38:33 98.5 Weight 2021-09-11 19:38:33 3.263 NEWS Pulse 2021-09-11 19:38:01 51-90 /min NEWS Respirations 2021-09-11 19:38:01 12-20 /min NEWS Systolic Blood Pressure 2021-09-11 19:38:01 101-110 mm[Hg] NEWS Temperature 2021-09-11 19:38:01 36.1-38.0 C Body Mass Index (BMI) 2021-09-11 19:38:01 33.9 Height 2021-09-11 19:38:01 64.96 Temperature 2021-09-11 19:38:01 98.5 Weight 2021-09-11 19:38:01 3.263 WEIGHT 2021-05-30 04:38:00 0.0925 kg HEIGHT 2021-05-30 04:38:00 165 cm Body Mass Index (BMI) 2021-09-11 19:21:49 33.9 Height 2021-09-11 19:21:49 64.96 Temperature 2021-09-11 19:21:49 98.5 Weight 2021-09-11 19:21:49 3.263 Body Mass Index (BMI) 2021-09-11 19:19:36 33.9 Height 2021-09-11 19:19:36 64.96 Temperature 2021-09-11 19:19:36 98.4 Weight 2021-09-11 19:19:36 3.263 Body Mass Index (BMI) 2021-09-11 19:18:19 33.9 Height 2021-09-11 19:18:19 65 Temperature 2021-09-11 19:18:19 100.5 Weight 2021-09-11 19:18:19 3245.204 Body Mass Index (BMI) 2021-09-11 19:17:35 33.9 Height 2021-09-11 19:17:35 65 Temperature 2021-09-11 19:17:35 99.6 Weight 2021-09-11 19:17:35 3245.204 Body Mass Index (BMI) 2021-09-11 19:17:21 33.9 Height 2021-09-11 19:17:21 64.96 Temperature 2021-09-11 19:17:21 99.5 Weight 2021-09-11 19:17:21 3245.204 Body Mass Index (BMI) 2021-09-11 19:16:51 33.9 Height 2021-09-11 19:16:51 64.96 Temperature 2021-09-11 19:16:51 102.2 Weight 2021-09-11 19:16:51 3245.204 Body Mass Index (BMI) 2021-09-11 19:11:18 33.9 Height 2021-09-11 19:11:18 65 Temperature 2021-09-11 19:11:18 98.6 Weight 2021-09-11 19:11:18 3245.204 Body Mass Index (BMI) 2021-09-11 19:11:13 33.9 Height 2021-09-11 19:11:13 65 Temperature 2021-09-11 19:11:13 98.6 Weight 2021-09-11 19:11:13 3245.204 Body Mass Index (BMI) 2021-09-11 19:10:49 33.9 Height 2021-09-11 19:10:49 65 Temperature 2021-09-11 19:10:49 99.7 Weight 2021-09-11 19:10:49 3264.005 Body Mass Index (BMI) 2021-09-11 19:10:48 33.9 Height 2021-09-11 19:10:48 65 Temperature 2021-09-11 19:10:48 99.7 Weight 2021-09-11 19:10:48 3264.005 Body Mass Index (BMI) 2021-09-11 19:09:57 33.9 Height 2021-09-11 19:09:57 65 Temperature 2021-09-11 19:09:57 99.7 Weight 2021-09-11 19:09:57 3264.005 Body Mass Index (BMI) 2021-09-11 19:09:41 33.9 Height 2021-09-11 19:09:41 65 Temperature 2021-09-11 19:09:41 98.8 Weight 2021-09-11 19:09:41 3264 Body Mass Index (BMI) 2021-09-11 19:08:46 33.9 Height 2021-09-11 19:08:46 65 Weight 2021-09-11 19:08:46 3264 WEIGHT 2021-05-30 04:38:00 0.0925 kg HEIGHT 2021-05-30 04:38:00 165 cm WEIGHT 2021-05-29 10:32:00 92 kg HEIGHT 2021-05-29 10:32:00 165.1 cm WEIGHT 2021-05-29 00:49:00 92 kg HEIGHT 2021-05-29 00:49:00 165 cm WEIGHT 2021-05-28 09:55:00 92 kg HEIGHT 2021-05-28 09:55:00 165.1 cm WEIGHT 2021-05-28 03:23:00 92.533 kg HEIGHT 2021-05-28 03:23:00 165.1 cm HEIGHT 2021-05-27 19:49:00 165.1 cm WEIGHT 2021-05-27 19:49:00 92.238269 kg Procedures This patient has no known procedures. Encounters Start End Encounter Admission Attending Care Care Encounter Source Date/Time Date/Time Type Type Clinicians Facility Department ID 2022-02-23 Outpatient KAITLIN Nicholas [id number] [facility] 11:20:06 Stephanie [id number] [facility] 2022-02-07 Outpatient KAITLIN Nicholas [id number] [facility] 2022-01-04 [id number] Stephanie [facility][id number] [facility] Roberto 2021-12-29 Outpatient KAITLIN Nicholas [facility] [id number] [facility] [facility] 16:07:01 Setphanie [id number] [facility] 2021-09-02 Emergency [facility] [id number] [facility] 11:54:15 [facility] 2022-02-14 2022-02-14 ambulatory [facility] [id number] [facility] [facility] [facility] 2022-02-07 2022-02-07 ambulatory [facility] [id number] [facility] 2022-02-07 2022-02-07 ambulatory [facility] [id number] [facility] 2022-01-07 2022-01-[address] [facility] [id number] 14:33:00 14:34:00 Stephanie -[id number] [facility] Roberto 2022-01-04 2022-01-04 ambulatory [facility] [id number] [facility] 2021-12-29 2021-12-29 ambulatory [facility] [id number] [facility] 2021-09-27 2021-09-[address] [facility] [id number] 19:15:00 21:37:00 [id number] 2021-09-27 2021-09-27 Departed [id number] [place] [id number] 19:15:00 21:37:00 Emergency [id number] [facility] i92-5lof- 0 [facility] [place] - -[id number]-[id number] Hl [id number] . [id number] Ctr-EMERGEN [id number] Anastasiya [facility] ([place]) 2021-06-30 2021-06-[address] [facility] F00 [id number] [facility] 14:04:00 14:05:00 chema, -[id number] [facility] 2021-05-30 2021-06-05 Inpatient ER Geovany [facility]X PCU [id number] [facility] 16:25:00 16:34:00 Jez, -[id number] Alireza 2021-05-27 2021-05-27 Emergency ER Timoteo, [facility] [id number] [facility] 10:05:00 10:05:00 Roberto -[id number] 2021-05-25 2021-05-25 Emergency ER Blake, [facility] [id number] 10:57:00 13:57:00 Emigdio -[id number] Johnson Mayen 2021-03-23 2021-03-23 Emergency ER Mahajan, [facility] [id number] 12:14:00 14:31:00 Libra -[id number] [facility] Rm 2021-01-08 2021-01-08 Emergency ER Chalut, [facility] [id number] 13:06:00 16:10:00 Bibi -[id number] [place] Mayen 2021-01-07 2021-01-07 Emergency [facility]ust[facility] [id number] 15:52:00 16:42:00 Isrrael -[id number] [facility] Abbott daniel 2020-12-29 2020-12-29 Outpatient R Arnaldo, [facility] [id number] 07:20:00 07:21:00 Roberto -[id number] [place] shaan Mayen 2020-11-27 2020-11-27 Emergency ER Provider, [facility] [id number] 17:59:00 17:59:00 Express -[id number] Johnson Mayen 2020-11-20 2020-11-20 Emergency ER Provider, [facility] [id number] 16:30:00 16:30:00 Express -[id number] Johnson Mayen 2020-09-18 2020-09-18 Emergency ER Sonny, [facility] [id number] 11:31:00 12:04:00 Elayne -[id number] Johnson Jacinto 2020-08-27 2020-08-[address] Am[address] Meza [facility] [id number] [facility] 18:32:00 19:37:00 -[id number] Johnson Jacinto 2020-01-06 2020-01-06 Emergency , [facility] [id number] 09:00:16 11:05:00 Rodolfo Whitten 350.1.13.10 [place] 4.2.7.2.686 Mina [id number] 2020-01-06 2020-01-06 Orders Doctor MIL [id number] 00:00:00 00:00:00 Only Unassigned, LILI 350.1.13.10 [place] [facility] [id number] [id number] 2019-12-02 2019-12-02 Emergency Roberto Cespedes [facility] [id number] 17:51:42 20:56:00 Abimbola Whitten 350.1.13.10 [place] 4.2.7.2.686 Mina [id number] 2019-11-22 2019-11-23 Emergency Viera, TRAUMA [id number] 21:52:37 02:47:00 Zuleyka ALARCON 350.1.13.10 4.2.7.2.686 [id number] Results Test Description Test Time Test Comments Results Result Comments Source Chemistry - Specials 2021-09-27 20:45:00 Test Item Value Reference Range Interpretation Comme nts Chemistry - Specials (test code = TSH3) 4.0123 uIU/mL 0.35-4.94 N [id number] 20:20:00 Test Item Value Reference Range Interpretation Comments Urinalysis (test code = UACLR) Yellow Yellow Urinalysis (test code = UACLY) Turbid Clear A Urinalysis (test code = SPGR) 1.020 1.002-1.036 N Urinalysis (test code = RICKY) 5.5 5.0-9.0 N Urinalysis (test code = UALEU) 500 Zhou/uL Negative A Urinalysis (test code = UANIT) Negative Negative Urinalysis (test code = Negative mg/dL Neg-Trace PROUADIP) Urinalysis (test code = GLUCU) Normal mg/dL Negative Urinalysis (test code = KETU) Negative mg/dL Negative Urinalysis (test code = Normal mg/dL Less than 2 UAUROB) Urinalysis (test code = UABIL) Negative Negative Urinalysis (test code = UABLD) Negative Negative Urinalysis (test code = UARBC) 4-6 HPF 0-3 A Urinalysis (test code = UAWBC) 21-50 HPF 0-3 A Urinalysis (test code = 21-50 HPF 0-3 A UASQUAM) Urinalysis (test code = UABAC) 1+ HPF None Seen A Urine Source: Urine [id number] 20:18:00 Test Item Value Reference Range Interpretation Comments Chemistry (test code 139 mmol/L 136-145 N = NA-T) Chemistry (test code 3.6 mmol/L 3.5-5.1 N = K-T) Chemistry (test code 104 mmol/L 98-107 N = CL) Chemistry (test code 28 mmol/L 22-29 N = CO2) Chemistry (test code 11 mmol/L 10-20 N = ANGP) Chemistry (test code 13 mg/dL 7.0-18.7 N = BUN) Chemistry (test code 1.18 mg/dL 0.6-1.1 H = CREATT) Chemistry (test code 49 Referen ce Range for = EGFRMDRD) Estimated GFR: Greater than 90 mL/min/ 1.73 m2NOTE:The MDRD equation has no t been validated for u se with theelderly (ove r 70 years of age), women, patients with serious comorbi d condition or pe rsons with extremes o fbody size, muscle ma ss, or nutritional sta tus. Chemistry (test code 92 mg/dL 70-105 N = GLU-T) Chemistry (test code 8.9 mg/dL 7.8-10.44 N = CA) Chemistry (test code 0.4 mg/dL 0.2-1.2 N = TBILI-T) Chemistry (test code 6.7 g/dL 6.0-8.3 N = TP) Chemistry (test code 3.9 g/dL 3.5-5.0 N = ALB) Chemistry (test code 2.8 g/dL 2.4-3.5 N = GLOB) Chemistry (test code 1.4 g/dL 1.2-2.2 N = AG) Chemistry (test code 63 U/L 40-110 N = ALP) Chemistry (test code 9 U/L 5-34 N = AST) Chemistry (test code 9 U/L 8-55 N = ALT) [id number] 19:59:00 Test Item Value Reference Range Interpretation Comments Hematology (test code = WBCT) 9.4 thou/uL 4.8-10.8 N Hematology (test code = RBCT) 4.66 mill/uL 4.20-5.40 N Hematology (test code = HGBT) 13.8 g/dL 12.0-16.0 N Hematology (test code = HCTT) 41.8 % 36.0-47.0 N Hematology (test code = MCV) 89.8 fL 78.0-98.0 N Hematology (test code = MCH) 29.7 pg 27.0-31.0 N Hematology (test code = MCHC) 33.1 g/dL 32.0-36.0 N Hematology (test code = RDW) 12.1 % 11.5-14.5 N Hematology (test code = PLTT) 375 thou/uL 130-400 N Hematology (test code = MPV) 7.3 fL 7.4-10.4 L Hematology (test code = %NEUT) 51.0 % 42.0-75.0 N Hematology (test code = %LYMPH) 38.5 % 21.0-51.0 N Hematology (test code = %MONO) 9.0 % 0.0-10.0 N Hematology (test code = %EOS) 0.6 % 0.0-10.0 N Hematology (test code = %BASO) 0.9 % 0.0-1.0 N Hematology (test code = NEUT#) 4.8 thou/uL 1.40-6.50 N Hematology (test code = LYMPH#) 3.6 thou/uL 1.20-3.40 H Hematology (test code = MONO#) 0.9 thou/uL 0.11-0.59 H Hematology (test code = EOS#) 0.1 thou/uL 0.0-0.7 N Hematology (test code = BASO#) 0.1 thou/uL 0.0-0.2 N Serum or plasma sodium measurement (moles/volume)2021-09-27 19:51:00 Test Item Value Reference Range Interpretation Comments Sodium Level (test code = 2951-2) 139 mmol/L 136-145 [facility])Serum or plasma potassium measurement (moles/volume)2021-09-27 19:51:00 Test Item Value Reference Range Interpretation Comments Potassium Level (test code = 3.6 mmol/L 3.5-5.1 2823-3) [facility])Serum or plasma chloride measurement (moles/volume)2021-09-27 19:51:00 Test Item Value Reference Range Interpretation Comments Chloride Level (test code = 104 mmol/L 98-107 2074-0) [facility])Serum or plasma carbon dioxide, total measurement (moles/volume)2021-09-27 19:51:00 Test Item Value Reference Range Interpretation Comments Carbon Dioxide Level (test code = 28 mmol/L 2028-07) [facility])Serum or plasma anion [id number] 19:51:00 Test Item Value Reference Range Interpretation Comments Anion Gap (test code = 03970-4) 11 mmol/L 10- [facility])Serum or plasma urea nitrogen measurement (mass/volume)2021-09-27 19:51:00 Test Item Value Reference Range Interpretation Comments Blood Urea Nitrogen (test code = 13 mg/dL 7.0-18.7 3094-0) [facility])Serum or plasma creatinine measurement (mass/volume)2021-09-27 19:51:00 Test Item Value Reference Range Interpretation Comments Creatinine (test code = 2160-0) 1.18 mg/dL 0.6-1.1 [facility])Glucose [Mass/volume] in Serum or Plasma 2021-09-27 19:51:00 Test Item Value Reference Range Interpretation Comments Glucose Level (test code = 2345-7) 92 mg/dL 70-105 [facility])Serum or plasma calcium measurement (mass/volume)2021-09-27 19:51:00 Test Item Value Reference Range Interpretation Comments Calcium Level (test code = 37876-5) 8.9 mg/dL 7.8-10.44 [facility])Serum or plasma total bilirubin measurement (mass/volume)2021-09-27 19:51:00 Test Item Value Reference Range Interpretation Comments Total Bilirubin (test code = 0.4 mg/dL 0.2-1.2 1974-2) [facility] ([place])Serum or plasma protein measurement (mass/volume)2021-09-27 19:51:00 Test Item Value Reference Range Interpretation Comments Serum Total Protein (test code = 6.7 g/dL 6.0-8.3 2885-2) [facility] ([place])Serum or plasma albumin measurement by bromocresol green (BCG) dye binding method ([id number] 19:51:00 Test Item Value Reference Range Interpretation Comments Albumin (test code = 94796-0) 3.9 g/dL 3.5-5.0 [facility])Globulin [Mass/volume] in Serum by calculation 2021-09-27 19:51:00 Test Item Value Reference Range Interpretation Comments Globulin (test code = 29189-6) 2.8 g/dL 2.4-3.5 [facility])Albumin/Globulin [Mass Ratio] in Serum or [id number] 19:51:00 Test Item Value Reference Range Interpretation Comments Albumin/Globulin Ratio (test code = 1.4 g/dL 1.2-2.2 1759-0) [facility])Alkaline phosphatase [Enzymatic activity/volume] in Serum or [id number] 19:51:00 Test Item Value Reference Range Interpretation Comments Alkaline Phosphatase (test code = 63 U/L 40-110 6768-6) [facility])Serum or plasma aspartate aminotransferase measurement (enzymatic activity/volume)2021-09-27 19:51:00 Test Item Value Reference Range Interpretation Comments Aspartate Amino Transf (AST/SGOT) (test 9 U/L 5-34 code = 1920-8) [facility])Serum or plasma alanine aminotransferase measurement without P-5'-P (enzymatic [id number] 19:51:00 Test Item Value Reference Range Interpretation Comments Alanine Aminotransferase (ALT/SGPT) 9 U/L 8-55 (test code = 1744-2) [facility])Serum or plasma thyrotropin measurement by detection limit <= 0.005 miu/l (units/[id number] 19:51:00 Test Item Value Reference Range Interpretation Comments TSH 3rd Generation (test code = 4.0123 uIU/mL 0.35-4.94 49186-0) [facility])Leukocytes [#/volume] in Blood by Automated [id number] 19:51:00 Test Item Value Reference Range Interpretation Comments White Blood Count (test code = 9.4 thou/uL 4.8-10.8 6690-2) [facility])Blood erythrocytes automated count (number/volume)2021-09-27 19:51:00 Test Item Value Reference Range Interpretation Comments Red Blood Count (test code = 4.66 mill/uL 4.20-5.40 789-8) [facility])Blood hemoglobin measurement (mass/volume) 2021-09-27 19:51:00 Test Item Value Reference Range Interpretation Comments Hemoglobin (test code = 718-7) 13.8 g/dL 12.0-16.0 [facility])Automated erythrocyte mean corpuscular volume 2021-09-27 19:51:00 Test Item Value Reference Range Interpretation Comments Mean Corpuscular Volume (test code = 89.8 fL 78.0-98.0 787-2) [facility])Automated erythrocyte mean corpuscular hemoglobin (mass per erythrocyte)2021-09-27 19:51:00 Test Item Value Reference Range Interpretation Comments Mean Corpuscular Hemoglobin (test 29.7 pg 27.0-31.0 code = 785-6) [facility])Automated erythrocyte mean corpuscular hemoglobin concentration measurement (mass/[id number] 19:51:00 Test Item Value Reference Range Interpretation Comments Mean Corpuscular Hemoglobin Concent 33.1 g/dL 32.0-36.0 (test code = 786-4) [facility])Automated erythrocyte distribution width ratio 2021-09-27 19:51:00 Test Item Value Reference Range Interpretation Comments Red Cell Distribution Width (test code 12.1 % 11.5-14.5 = 788-0) [facility])Automated blood platelet count (count/volume) 2021-09-27 19:51:00 Test Item Value Reference Range Interpretation Comments Platelet Count (test code = 375 thou/uL 130-400 777-3) [facility])Automated blood platelet mean [id number] 19:51:00 Test Item Value Reference Range Interpretation Comments Mean Platelet Volume (test code = 7.3 fL 7.4-10.4 84510-5) [facility])Automated blood neutrophils/100 leukocytes 2021-09-27 19:51:00 Test Item Value Reference Range Interpretation Comments Neutrophils % (test code = 770-8) 51.0 % 42.0-75.0 [facility])Lymphocytes/100 leukocytes in Blood by Automated [id number] 19:51:00 Test Item Value Reference Range Interpretation Comments Lymphocytes % (test code = 736-9) 38.5 % 21.0-51.0 [facility])Automated blood monocytes/100 leukocytes 2021-09-27 19:51:00 Test Item Value Reference Range Interpretation Comments Monocytes % (test code = 5905-5) 9.0 % 0.0-10.0 [facility])Automated blood eosinophils/100 leukocytes 2021-09-27 19:51:00 Test Item Value Reference Range Interpretation Comments Eosinophils % (test code = 713-8) 0.6 % 0.0-10.0 [facility])Automated blood basophils/100 leukocytes 2021-09-27 19:51:00 Test Item Value Reference Range Interpretation Comments Basophils % (test code = 706-2) 0.9 % 0.0-1.0 [facility])Blood neutrophils automated count (number/volume)2021-09-27 19:51:00 Test Item Value Reference Range Interpretation Comments Neutrophils # (test code = 751-8) 4.8 thou/uL 1.40-6.50 [facility])Lymphocytes [#/volume] in Blood by Automated [id number] 19:51:00 Test Item Value Reference Range Interpretation Comments Lymphocytes # (test code = 731-0) 3.6 thou/uL 1.20-3.40 [facility])Blood monocytes automated count (number/volume)2021-09-27 19:51:00 Test Item Value Reference Range Interpretation Comments Monocytes # (test code = 742-7) 0.9 thou/uL 0.11-0.59 [facility] ([place])Blood eosinophils automated count (count/volume)2021-09-27 19:51:00 Test Item Value Reference Range Interpretation Comments Eosinophils # (test code = 711-2) 0.1 thou/uL 0.0-0.7 [facility] ([place])Automated blood basophil count (count/volume) 2021-09-27 19:51:00 Test Item Value Reference Range Interpretation Comments Basophils # (test code = 704-7) 0.1 thou/uL 0.0-0.2 [facility] ([place])Color of Urine by [id number] 19:45:00 Test Item Value Reference Range Interpretation Comments Urine Color (test code = 38116-0) Yellow Yellow [facility])Urine clarity by refractometry automated 2021-09-27 19:45:00 Test Item Value Reference Range Interpretation Comments Urine Clarity (test code = 37890-1) Turbid Clear [facility])Specific gravity of Urine by Test strip 2021-09-27 19:45:00 Test Item Value Reference Range Interpretation Comments Urine Specific [place] (test code = 1.020 1.002-1.036 5811-5) [facility] ([place])Urine pH measurement by automated test strip 2021-09-27 19:45:00 Test Item Value Reference Range Interpretation Comments Urine pH (test code = 54352-9) 5.5 5.0-9.0 [facility] ([place])Urine leukocyte esterase detection by automated test [id number] 19:45:00 Test Item Value Reference Range Interpretation Comments Urine Leukocyte Esterase (test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
[2022-06-24] MEDS ORDERED: AMOX/K CLAV 875 MG TAB ONE (13:40)
[2022-06-24] MEDS ORDERED: TETANUS & DIPHTHERIA TOX,ADULT 0.5 ML VIAL ONE (13:41)
[2022-06-24] MEDS ORDERED: KETOROLAC 30 MG/ML INJ ONE (13:41)
--- NOTE | 2022-06-24 15:05 | RAD REPORT ---
EXAM DESCRIPTION: RAD -Hand Left 3 View - 06/24/2022 2:00 pm CLINICAL HISTORY: Left hand pain status post injury FINDINGS: No fracture or dislocation is seen. A radiopaque foreign body not seen
--- NOTE | 2022-06-24 15:15 | EDPHYS ---
Physician Documentation [facility] Name: Dara Looney Age: 46 yrs Sex: Female : 1975 Arrival Date: 06/24/2022 Time: 12:43 Bed 10 Private MD: ED Physician Gabriel Dubois HPI: 06/24 18:24 This 46 yrs old Female presents to ER via Ambulatory with complaints of Dog Bite, Hand kb Pain, Arm Pain. 18:24 The patient was bitten on the palm of left hand and left tricep, by a dog, for an kb unknown reason, outdoors. Onset: The symptoms/episode began/occurred just prior to arrival. Animal information: Patient/Caregiver unable to provide information related to the animal. Secondary to the bite the patient reports a laceration, that is superficial, pain, Associated signs and symptoms: Pertinent positives: pain at site, tenderness. Severity of symptoms: At their worst the symptoms were moderate, in the emergency department the symptoms are unchanged. The patient has not experienced similar symptoms in the past. The patient has not recently seen a physician. 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 - Social history:: Smoking status: unknown. ROS: 18:23 Constitutional: Negative for fever, chills, and weight loss. kb 18:23 Skin: Positive for laceration(s), puncture, of the palm of left hand and left tricep. 18:23 All other systems are negative. Exam: 18:23 Constitutional: This is a well developed, well nourished patient who is awake, alert, kb and in no acute distress. Head/Face: Normocephalic, atraumatic. ENT: Moist Mucous membranes Respiratory: Respirations even and unlabored. No increased work of breathing. Talking in full sentences MS/ Extremity: Pulses equal, no cyanosis. Neurovascular intact. Full, normal range of motion. Neuro: Awake and alert, GCS 15, oriented to person, place, time, and situation. Moves all extremities. Normal gait. Psych: Awake, alert, with orientation to person, place and time. Behavior, mood, and affect are within normal limits. 18:23 Skin: injury, bite(s), superficial, of the palm of left hand and left tricep. Vital Signs: 13:01 BP 117 / 86; Pulse 64; Resp 18; Temp 98.0(TE); Pulse Ox 98% on R/A; Weight 89.36 kg bm7 (R); Height 5 ft. 5 in. (165.10 cm); Pain 10/10; 15:36 BP 121 / 81; Pulse 80; Resp 18; Pulse Ox 100% ; Pain 6/10; kb3 13:01 Body Mass Index 32.78 (89.36 kg, 165.10 cm) bm7 MDM: 13:08 Patient medically screened. kb 18:22 Data reviewed: vital signs, nurses notes. Data interpreted: Pulse oximetry: on room air kb is 100 %. Interpretation: normal. Counseling: I had a detailed discussion with the patient and/or guardian regarding: the historical points, exam findings, and any diagnostic results supporting the discharge/admit diagnosis, the need for outpatient follow up, a family practitioner, to return to the emergency department if symptoms worsen or persist or if there are any questions or concerns that arise at home. 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 Exp: ap3 03/11/2024. Lot #: [id number]. } Route: IM; Site: right deltoid; 14:30 Follow up: Response: No adverse reaction ap3 Disposition Summary: 06/24/22 15:14 Discharge Ordered Location: Home kb Condition: Stable kb Diagnosis - Bitten by dog kb - Puncture wound without foreign body of left upper arm, initial encounter kb - Puncture wound without foreign body of left hand kb Followup: kb - With: Emergency Department - When: As needed - Reason: Worsening of condition Followup: kb - With: Private Physician - When: 2 - 3 days - Reason: Recheck today's complaints, Continuance of care, Re-evaluation by your physician Discharge Instructions: - Discharge Summary Sheet kb - Animal Bite, Adult, [id number] kb Forms: - Medication Reconciliation Form kb - Thank You Letter kb - Antibiotic Education kb - Prescription Opioid Use kb Prescriptions: - Augmentin 875-125 mg Oral Tablet - take 1 tablet by ORAL route every 12 hours for 10 days; 20 tablet; Refills: 0, kb Product Selection Permitted Signatures: Dispatcher [employer] EDMS Milagro Melchor, [place]-C MERRY GO ROUND OPERATOR-Elza Short RN RN ap3 Agnes Garcia, RN RN bm7 Laura Weathers, RN RN kb3
--- NOTE | 2022-06-24 15:15 | ER ---
Nurse's Notes [facility] Name: Dara Looney Age: 46 yrs Sex: Female : 1975 Arrival Date: 06/24/2022 Time: 12:43 Bed 10 Private MD: Diagnosis: Bitten by dog;Puncture wound without foreign body of left upper arm, initial encounter;Puncture wound without foreign body of left hand Presentation: 06/24 13:02 Chief complaint: Patient states: I was unloading things into my new trailer and all of bm7 a sudden a dog came out of nowhere and bit me and I was able to choke him and get him off. Coronavirus screen: At this time, the client does not indicate any symptoms associated with coronavirus-19. Ebola Screen: No symptoms or risks identified at this time. Initial Sepsis Screen: Does the patient meet any 2 criteria? No. Patient's initial sepsis screen is negative. Does the patient have a suspected source of infection? No. Patient's initial sepsis screen is negative. Risk Assessment: Do you want to hurt yourself or someone else? Patient reports no desire to harm self or others. Onset of symptoms. 13:02 Method Of Arrival: Ambulatory 7 13:02 Acuity: SHEILA 4 bm7 Triage Assessment: 13:03 Bite description: bite sustained to left hand and left arm by a dog, animal bm7 information: vaccination(s) is unknown. General: Appears in no apparent distress. uncomfortable, Behavior is cooperative, anxious. Pain: Complains of pain in left hand. EENT: No deficits noted. No signs and/or symptoms were reported regarding the EENT system. Neuro: No deficits noted. Cardiovascular: No deficits noted. Respiratory: No deficits noted. GI: No deficits noted. No signs and/or symptoms were reported involving the gastrointestinal system. : No deficits noted. No signs and/or symptoms were reported regarding the genitourinary system. Derm: Skin is intact, Skin is dry, Skin is pink, warm \T\ dry. Wound noted left hand and left arm. Musculoskeletal: No deficits noted. No signs and/or symptoms reported regarding the musculoskeletal system. 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 - Social history:: Smoking status: unknown. Screenin:59 Abuse screen: Denies threats or abuse. Nutritional screening: No deficits noted. ap3 Tuberculosis screening: No symptoms or risk factors identified. Fall Risk None identified. Assessment: 13:27 Reassessment: [facility] office notified of dog bite. Phon number ss [phone]. 15:02 Reassessment: animal control report #[id number]. ap3 15:13 Reassessment: No changes from previously documented assessment. Patient and/or family kb3 updated on plan of care and expected duration. Pain level reassessed. 15:35 Reassessment:. kb3 Vital Signs: 13:01 BP 117 / 86; Pulse 64; Resp 18; Temp 98.0(TE); Pulse Ox 98% on R/A; Weight 89.36 kg bm7 (R); Height 5 ft. 5 in. (165.10 cm); Pain 10/10; 15:36 BP 121 / 81; Pulse 80; Resp 18; Pulse Ox 100% ; Pain 6/10; kb3 13:01 Body Mass Index 32.78 (89.36 kg, 165.10 cm) bm7 ED Course: 12:43 Patient arrived in ED. as 13:03 Triage completed. bm7 13:03 Arm band placed on right wrist. bm7 13:08 Milagro Melchor FNP-C is PHCP. kb 13:08 Gabriel Dubois MD is Attending Physician. kb 13:29 Elza Alfredo, DENNIS is Primary Nurse. ap3 14:00 Patient has correct armband on for positive identification. Bed in low position. Call ap3 light in reach. Warm blanket given. 14:00 No provider procedures requiring assistance completed. Patient did not have IV access ap3 during this emergency room visit. 14:01 Hand Left 3 View XRAY In Process Unspecified. EDMS 15:33 Dressings: Flor x 2 left hand, left bicep and left antecubital area 4X4s. 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 Exp: ap3 03/11/2024. Lot #: [id number]. } Route: IM; Site: right deltoid; 14:30 Follow up: Response: No adverse reaction ap3 Medication: 14:00 Vaccine Information Statement (VIS) provided today. Questions and/or concerns ap3 addressed. VIS edition date: June 11, 2021. Outcome: 15:14 Discharge ordered by . kb 15:35 Condition: improved kb3 15:35 Discharge instructions given to patient, Instructed on discharge instructions, follow up and referral plans. medication usage, wound care, Demonstrated understanding of instructions, follow-up care, medications, wound care, Prescriptions given X 1. 15:35 Discharged to home kb3 15:36 Patient left the ED. kb3 Signatures: Dispatcher [employer] EDMS Milagro Melchor, [place]-Brandi ARAUZP-Dorcas Miller Shelby, RN Elza Mcmahon RN RN ap3 Agnes Garcia RN RN bm7 Laura Weathers RN RN kb3
[2022-06-24 15:49] VITALS: TEMP 98
[2022-06-24 16:05] VITALS: BP 121/81; O2SAT 100
== END 2022-06-24 15:36 | disposition home or self-care (01) ==
LOC: ER 12:42
DX: S41.132A Puncture wound without foreign body of left upper arm, initial encounter (principal); S61.432A Puncture wound without foreign body of left hand, initial encounter; W54.0XXA Bitten by dog, initial encounter; Z23 Encounter for immunization; Z85.3 Personal history of malignant neoplasm of breast
CPT/HCPCS: 90471; 90714; 96372; 99283

== ENCOUNTER 2022-09-01 18:42 | Emergency (ER) | payer OTHER ==
--- OUTSIDE RECORDS SUMMARY | 2022-09-01 18:51 | XMS REPORT | Continuity of Care Document ---
:1975 Author Organization [facility] t Address [address] [place] [address] Care Team Providers Name Role Phone Roberto Elaine Primary Care Physician Stephanie Nicholas Attending Clinician Unavailable Stephanie Nicholas Attending Clinician Unavailable ROBERTO WILDE Attending Clinician Unavailable Roberto Elaine Attending Clinician GILMA BRUSH Attending Clinician Unavailable Georgina Brenner DO Attending Clinician Gilma Brush NP Attending Clinician Yahir Madden Attending Clinician Unavailable Melody, Francoise Davila Attending Clinician Unavailable Jocelyne Campbell Attending Clinician [...] Rodolfo Blackmon DO Attending Clinician Doctor Unassigned, [place] Attending Clinician Unavailable Roberto Joseph Attending Clinician Zuleyka Viera MD Attending Clinician Garfield Saxena Admitting Clinician Unavailable Payers Payer Name Policy Type Policy Number Effective Date Expiration Date Kyle DAIGLE [id number] 2022 HEALTH 00:00:00 Problems Condition Condition Condition Status Onset Resolution Last Treating Co mments Source Name Details Category Date Date Treatment Clinician Date Acute Acute Disease Active Univers right-side right-side 01-30 [place] of d [place] 00 Medical without without Branch sciatica sciatica 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 virus [facility] - infection [place] (Roberto) Hypotensio Problem [facility] t[facility] n kes - [place] ([place]to) Allergies, Adverse Reactions, Alerts Allergy Allergy Status Severity Reaction(s) Onset Inactive Treating Comm ents Source Name Type Date Date Clinician No Known DA Active U [facility] 00 [facility] Rm NO KNOWN Drug Active Univers ALLERGIE Class ity of S [facility] Social History Social Habit Start Date Stop Date Quantity Comments Source History of [facility] - [facility] Sex Assigned At [facility] - [facility] Exposure to 2022-06-29 2022-07-09 Unable to assess Univers ity of SARS-CoV-2 00:00:00 16:49:00 [facility] [place] Alcohol intake 2019-12-02 2019-12-02 0 /d University 00:00:00 00:00:00 [facility] Tobacco use and 2017-01-25 2017-01-25 Smokeless tobacco Un iversity of exposure 00:00:00 00:00:00 non-user [facility] Smoking Status Start Date Stop Date Source Unknown if ever smoked [facility] (Roberto) Never Smoker [facility] Medications Ordered Filled Start Stop Current Ordering Indication Dosage Frequency Signature Comments Components Source Medication Medication Date Date Medication? Clinician (SIG) Name Name sodium 2021- No 100meq IV Univers bicarbonate 07-10 Infusion, it y of 100 mEq in 04:45: 04:23 at 100 [place] D5W 1,000 00 :24 mL/hr, 100 Medi tashi mL IV mEq, Branch infusion CONTINUOUS , Starting on 07/09/22 at 2345, Until 07/09/22 at 2323, ADDI sodium 2021- No 1meq/kg 95.3 mEq Uni vers bicarbonate 07-10 (1 mEq/kg it y of 8.4 % (1 03:45: 04:07 ?95.3 kg), [place] mEq/mL) 00 :00 Intravenou Medica l injection s, ONCE, 1 Bran ch 95.3 mEq dose, On 07/09/22 at 2245, STAT NaCl 0.9% 2021- No 500mL at 999 Univ ers (NS) bolus 07-09 mL/hr, 500 it y of infusion 23:45: 01:05 mL, IV [place] 500 mL 00 :00 Infusion, Medical ONCE, 1 Branch dose, On 07/09/22 at 1845, STAT traMADol traMADol No 1{table traMADol HCl 50 MG HCl 50 MG 4-05 t_as_ne HCl 50 MG 00:00: eded} 00 traMADol traMADol 2021-0 No 1{table traMADol HCl 50 MG HCl 50 MG 4-05 t_as_ne HCl 50 MG 00:00: eded} 00 traMADol traMADol 0 No 1{table traMADol HCl 50 MG HCl 50 MG 4-05 t_as_ne HCl 50 MG 00:00: eded} 00 Gabapentin Gabapentin 2021-0 No 1{capsu TID Gabapentin 100 MG 100 MG 4-04 le} 100 MG 00:00: 00 Gabapentin Gabapentin 2021-0 No 1{capsu TID Gabapentin 100 MG 100 MG 4-04 le} 100 MG 00:00: 00 Gabapentin Gabapentin 2021-0 No 1{capsu TID Gabapentin 100 MG 100 MG 4-04 le} 100 MG 00:00: 00 Medrol 4 MG Medrol 4 MG 2021- No Medrol 4 2-23 MG 00:00: 00 Medrol 4 MG Medrol 4 MG 2021-0 No Medrol 4 2-23 MG 00:00: 00 Medrol 4 MG Medrol 4 MG 2021-0 No Medrol 4 2-23 MG 00:00: 00 Medrol 4 MG Medrol 4 MG 2021-0 No Medrol 4 2-23 MG 00:00: 00 Medrol 4 MG Medrol 4 MG 2021-0 No Medrol 4 2-23 MG 00:00: 00 Hydrocodone 0 No 1TAB Every [address] Bit/Apap 1-22 Hours [facility] - 5/325 20:14: St. ([place]) 5 19 [place] MG/325 MG (Roberto) Tab chlorphenir 2021- No [id number] 4mg Take 1 Univers amine 4 mg 01-05 tablet by ity of tablet 00:00: 00:00 mouth [place] 00 :00 every 6 Medical (six) Branch hours as needed for Allergies or Runny nose. ketorolac 2021- No [id number] 10mg Take 1 Univers 10 mg 12-02 tablet by ity of tablet 00:00: 00:00 mouth [place] 00 :00 every 6 Medical (six) Branch hours as needed for Pain (scale 4-6). traMADol 50 2021- No [id number] 50mg Take 1 Univers mg tablet 1-27 09-03 tablet by ity of 00:00: 00:00 mouth [place] 00 :00 every 6 Medical (six) Branch hours as needed for Pain (scale 4-6). acetaminoph 2021- No [id number] 1{tbl} Take 1-2 Univers en-codeine 1-18 09-03 tablets by it y of 300-30 mg 00:00: 00:00 mouth [place] tablet 00 :00 every 6 Medical (six) Branch hours as needed for Pain (scale 1-3). acetaminoph 2018-11- No [id number] 1{tbl} Take 1 Univers en-codeine 0-02 09-03 tablet by ity of (TYLENOL-CO 00:00: 00:00 [place] DEINE #4) 00 :00 every 6 Medical 300-60 mg (six) Branch tablet hours as needed for Pain. esomeprazol Yes 40mg Take 40 mg Univers e 40 mg 6-10 by mouth ity of capsule 13:19: daily [place] 08 breakfast. Medical Branch esomeprazol Yes 40mg Take 40 mg Univers e 40 mg 6-10 by mouth ity of capsule 13:19: daily [place] 08 breakfast. Medical Branch nexium nexium No nexium nexium nexium No nexium nexium nexium No nexium nexium nexium No nexium nexium nexium No nexium Immunizations Ordered Filled Immunization Date Status Comments [facility] e Immunization Name Name Tdap (Boostrix) Tdap (Boostrix) 2020-11-[address] [facility] 10:48:00 [facility] Tdap (Boostrix) Tdap (Boostrix) 2020-11-[address] [facility] 10:48:00 [facility] Tdap (Boostrix) Tdap (Boostrix) 2020-11-[address] [facility] 10:48:00 [facility] Tdap (Boostrix) Tdap (Boostrix) 2020-11-[address] [facility] 10:48:00 [facility] Tdap (Boostrix) Tdap (Boostrix) 2020-11-[address] [facility] 10:48:00 [facility] Td 2019-08-07 Completed University of 00:00:00 [facility] Td 2019-08-07 Completed [facility] 00:00:00 [facility] Vital Signs Vital Name Observation Time Observation Value Comments Source Body temperature 2022-07-10 10:14:56 [facility].78 [facility] blood 2022-07-10 08:00:00 104 mm[Hg] Univer sity of pressure [facility] Diastolic blood 2022-07-10 08:00:00 70 mm[Hg] Unive rsity of pressure [facility] Heart rate 2022-07-10 08:00:00 65 /min [facility] Respiratory rate 2022-07-10 08:00:00 12 /min [facility] Oxygen saturation in 2022-07-10 08:00:00 98 /min [facility] Arterial blood by [facility] Pulse oximetry Branch Body height 2022-07-09 21:56:00 165.1 cm [facility] Body weight 2022-07-09 21:56:00 95.255 kg [facility] BMI 2022-07-09 21:56:00 34.95 kg/m2 [facility] weight 2022-02-07 11:15:00 206.6 [lb_av] [facility] height 2022-02-07 11:15:00 65 [in_i] [facility] bmi 2022-02-07 11:15:00 34.38 kg/m2 [facility] heart rate 2022-02-07 11:15:00 80 /min [facility] temperature 2022-02-07 11:15:00 97.3 [degF] [facility] oximetry 2022-02-07 11:15:00 98 % [facility] respiratory rate 2022-02-07 11:15:00 16 /min [facility] blood pressure 2022-02-07 11:15:00 120 mm[Hg] [facility] systolic [facility] blood pressure 2022-02-07 11:15:00 70 mm[Hg] [facility] diastolic [facility] heart rate 2021-12-29 14:45:00 78 /min [facility] temperature 2021-12-29 14:45:00 97.6 [degF] [facility] oximetry 2021-12-29 14:45:00 99 % NIVIA Rodriguez [facility] blood pressure 2021-12-29 14:45:00 112 mm[Hg] [facility] systolic [facility] blood pressure 2021-12-29 14:45:00 62 mm[Hg] [facility] diastolic [facility] weight 2021-12-29 14:45:00 201 [lb_av] [facility] height 2021-12-29 14:45:00 65 [in_i] [facility] bmi 2021-12-29 14:45:00 33.44 kg/m2 [facility] NEWS Pulse 2021-09-11 22:47:30 51-90 /min NEWS Respirations 2021-09-11 22:47:30 12-20 /min NEWS Systolic Blood 2021-09-11 22:47:30 91-100 mm[Hg] Pressure NEWS Temperature 2021-09-11 22:47:30 36.1-38.0 C Weight Bearing Status 2021-09-11 22:47:30 Not specified Body Mass Index (BMI) 2021-09-11 22:47:30 33.9 Height 2021-09-11 22:47:30 64.96 Temperature 2021-09-11 22:47:30 98.4 Weight 2021-09-11 22:47:30 3.263 NEWS Pulse 2021-09-11 22:47:29 51-90 /min NEWS Respirations 2021-09-11 22:47:29 12-20 /min NEWS Systolic Blood 2021-09-11 22:47:29 91-100 mm[Hg] Pressure NEWS Temperature 2021-09-11 22:47:29 36.1-38.0 C Weight Bearing Status 2021-09-11 22:47:29 Not specified Body Mass Index (BMI) 2021-09-11 22:47:29 33.9 Height 2021-09-11 22:47:29 64.96 Temperature 2021-09-11 22:47:29 98.4 Weight 2021-09-11 22:47:29 3.263 NEWS Pulse 2021-09-11 20:16:09 51-90 /min NEWS Respirations 2021-09-11 20:16:09 12-20 /min NEWS Systolic Blood 2021-09-11 20:16:09 91-100 mm[Hg] Pressure NEWS Temperature 2021-09-11 20:16:09 36.1-38.0 C Weight Bearing Status 2021-09-11 20:16:09 Not specified Body Mass Index (BMI) 2021-09-11 20:16:09 33.9 Height 2021-09-11 20:16:09 64.96 Temperature 2021-09-11 20:16:09 98.4 Weight 2021-09-11 20:16:09 3.263 NEWS Pulse 2021-09-11 20:08:05 51-90 /min NEWS Respirations 2021-09-11 20:08:05 12-20 /min NEWS Systolic Blood 2021-09-11 20:08:05 91-100 mm[Hg] Pressure NEWS Temperature 2021-09-11 20:08:05 36.1-38.0 C Weight Bearing Status 2021-09-11 20:08:05 Not specified Body Mass Index (BMI) 2021-09-11 20:08:05 33.9 Height 2021-09-11 20:08:05 64.96 Temperature 2021-09-11 20:08:05 98.4 Weight 2021-09-11 20:08:05 3.263 Body Mass Index (BMI) 2021-09-11 20:07:08 33.9 Height 2021-09-11 20:07:08 64.96 Temperature 2021-09-11 20:07:08 97.9 Weight 2021-09-11 20:07:08 3.263 NEWS Pulse 2021-09-11 20:07:08 51-90 /min NEWS Respirations 2021-09-11 20:07:08 12-20 /min NEWS Systolic Blood 2021-09-11 20:07:08 101-110 mm[Hg] Pressure NEWS Temperature 2021-09-11 20:07:08 36.1-38.0 C Weight Bearing Status 2021-09-11 20:07:08 Not specified NEWS Pulse 2021-09-11 20:06:44 51-90 /min NEWS Respirations 2021-09-11 20:06:44 12-20 /min NEWS Systolic Blood 2021-09-11 20:06:44 101-110 mm[Hg] Pressure NEWS Temperature 2021-09-11 20:06:44 36.1-38.0 C Weight Bearing Status 2021-09-11 20:06:44 Not specified Body Mass Index (BMI) 2021-09-11 20:06:44 33.9 Height 2021-09-11 20:06:44 64.96 Temperature 2021-09-11 20:06:44 97.7 Weight 2021-09-11 20:06:44 3.263 NEWS Pulse 2021-09-11 20:04:20 51-90 /min NEWS Respirations 2021-09-11 20:04:20 12-20 /min NEWS Systolic Blood 2021-09-11 20:04:20 111-219 mm[Hg] Pressure NEWS Temperature 2021-09-11 20:04:20 36.1-38.0 C Weight Bearing Status 2021-09-11 20:04:20 Not specified Body Mass Index (BMI) 2021-09-11 20:04:20 33.9 Height 2021-09-11 20:04:20 64.96 Temperature 2021-09-11 20:04:20 98.6 Weight 2021-09-11 20:04:20 3.263 NEWS Pulse 2021-09-11 19:38:34 51-90 /min NEWS Respirations 2021-09-11 19:38:34 12-20 /min NEWS Systolic Blood 2021-09-11 19:38:34 101-110 mm[Hg] Pressure NEWS Temperature 2021-09-11 19:38:34 36.1-38.0 C Body Mass Index (BMI) 2021-09-11 19:38:34 33.9 Height 2021-09-11 19:38:34 64.96 Temperature 2021-09-11 19:38:34 98.5 Weight 2021-09-11 19:38:34 3.263 NEWS Pulse 2021-09-11 19:38:33 51-90 /min NEWS Respirations 2021-09-11 19:38:33 12-20 /min NEWS Systolic Blood 2021-09-11 19:38:33 101-110 mm[Hg] Pressure NEWS Temperature 2021-09-11 19:38:33 36.1-38.0 C Body Mass Index (BMI) 2021-09-11 19:38:33 33.9 Height 2021-09-11 19:38:33 64.96 Temperature 2021-09-11 19:38:33 98.5 Weight 2021-09-11 19:38:33 3.263 NEWS Pulse 2021-09-11 19:38:01 51-90 /min NEWS Respirations 2021-09-11 19:38:01 12-20 /min NEWS Systolic Blood 2021-09-11 19:38:01 101-110 mm[Hg] Pressure NEWS Temperature 2021-09-11 19:38:01 36.1-38.0 C Body [...] 2021-05-27 19:49:00 165.1 cm WEIGHT 2021-05-27 19:49:00 92.822271 kg Procedures Procedure Date / Time Performing Clinician Source Performed BASIC METABOLIC PANEL 2022-07-10 06:14:00 Gilma Brush [facility] (NA, K, CL, CO2, Medical Branch GLUCOSE, BUN, CREATININE, CA) SALICYLATE 2022-07-10 06:14:[address] [facility] BASIC METABOLIC PANEL 2022-07-10 00:12:00 Gilma Brush [facility] (NA, K, CL, CO2, Medical Branch GLUCOSE, BUN, CREATININE, CA) SALICYLATE 2022-07-10 00:12:[address] [facility] POCT TEST 2022-07-09 22:23:00 Georgina Brenner [facility] URINALYSIS 2022-07-09 22:10:00 Georgina [facility] URINE DRUG (IMMUNOASSAY) 2022-07-09 22:10:00 Georgina Brenner [facility] nch SCREEN W/O REFLEX AC PANEL 21 + LACTIC 2022-07-09 22:00:00 Georgina Brenner [facility] ACID [facility] COMP. METABOLIC PANEL 2022-07-09 21:59:00 Georgina Brenner [facility] ([id number]) [facility] SALICYLATE 2022-07-09 21:59:00 Georgina Brenner [facility] ETHANOL 2022-07-09 21:59:00 Georgina Brenner [facility] CBC WITH DIFF 2022-07-09 21:59:00 Georgina Brenner [facility] PROTHROMBIN TIME / INR 2022-07-09 21:59:00 Georgina Brenner [facility] COVID-19 (MOLECULAR 2022-07-09 21:59:00 Georgina Brenner [facility] NUCLEIC ACID AMPLIFICATION) COVID-19 (ID NOW RAPID 2022-07-09 21:59:00 Georgina Brenner [facility] TESTING) [facility] Encounters Start End Encounter Admission Attending Care Care Encounter Source Date/Time Date/Time Type Type Clinicians Facility Department ID 2022-02-23 [facility] [id number] 11:20:06 Stephanie [id number] [facility] ent Clinics 2022-02-07 Outpatient KAITLIN Nicholas [id number] 10:55:03 Stephanie [id number] [facility] ent Clinics 2022-01-04 Inpatient R UYEN Nicholas STLSJ [id number] [facility] 13:45:00 Stephanie -[id number] [facility] Mejia 2021-12-29 Outpatient KAITLIN Nicholas STLSJC [id number] 16:07:01 Stephanie [id number] [facility] 2021-09-02 Emergency [facility] [id number] Univers 11:54:15 [facility] 2022-07-22 2022-07-22 [facility] [id number] Univers 10:00:00 10:00:00 ROBERTO mccain [facility] 2022-07-22 2022-07-22 [facility] [id number] Univers 00:00:00 00:00:00 [facility] [id number] it y bella FUNES [id number] Zaid as ZULMA?BLEA [id number] [address] MEDICAL OFFICE BUILDING 2022-07-20 2022-07-20 [facility] [id number] Univers 10:00:00 10:00:00 ROBERTO mccain [facility] 2022-07-09 2022-07-10 Emergency X TRUDI [facility] ERT [id number] Univers 16:59:00 08:51:00 GILMA [facility] 2022-07-09 2022-07-10 Emergency Georgina Brenner [facility] 1.2.8 [id number] Univers 16:59:00 08:51:00 Gilma Brush [id number] ity [place]IL[place] [id number] [place] [facility] [id number] [place] [id number] [place] 2022-02-14 2022-02-14 (TEL) STLS[facility] ST[facility] [id number] [facility] 00:00:00 00:00:00 [facility] 2022-02-07 2022-02-07 Office STLSJC STLSJC [id number] [facility] 00:00:00 00:00:00 Visit, Kj Mtz es - Pt., Level St 3 [facility] ent [facility] 2022-02-07 2022-02-07 (TEL) [facility] [id number] [facility] 00:00:00 00:00:00 [facility] ent Clinics 2022-01-07 2022-01-07 Outpatient R Cristopher [facility] [id number] 14:33:00 14:34:00 Stephanie -[id number] Johnson garduno [facility] Me[place] 2022-01-04 2022-01-04 (TEL) [facility] [id number] 00:00:00 00:00:00 [facility] 2021-12-29 2021-12-29 [id number] 00:00:00 00:00:00 Visit, Kj Mtz es - Pt., Level St [address] [place] [address] ent [facility] 2021-09-27 2021-09-27 Emergency ER Chano [facility] [id number] 19:15:00 21:37:00 Yahir -[id number] [facility] Roberto 2021-09-27 2021-09-27 Departed [id number]- [place] [id number] 19:15:00 21:37:00 Emergency [id number] Regional [id number] [facility] - -[id number] Hlth [id number] St. [id number] Ctr-EMERGEN [id number] Anastasiya seph SERVICES (Brain rocky) 2021-06-30 2021-06-[address] [id number] [facility] 14:04:00 14:05:00 chema, -[id number] Luke s [facility] 2021-05-30 2021-06-05 Inpatient ER Geovany STLSJX PCU [id number] STLSJX 16:25:00 16:34:00 Jez -[id number] Alireza 2021-05-27 2021-05-27 Emergency ER Timoteo STLSJX STLSJX [id number] STLSJX 10:05:00 10:05:00 Roberto -[id number] 2021-05-25 2021-05-25 Emergency ER Blake, [facility] [id number] 10:57:00 13:57:00 Emigdio -[id number] Luharriet s [facility] Me[facility] 2021-03-23 2021-03-23 Emergency ER Keyshawn, [facility] [id number] 12:14:00 14:31:00 Libra -[id number] [facility] Rm 2021-01-08 2021-01-08 Emergency ER Ted, [facility] [id number] 13:06:00 16:10:00 Bibi -[id number] [facility]ar[facility] Me[facility] 2021-01-07 2021-01-07 Emergency ER Brayden, [facility] [id number] 15:52:00 16:42:00 Isrrael -[id number] [place] [facility] 2020-12-29 2020-12-29 Outpatient R Arnaldo, [facility] [id number] 07:20:00 07:21:00 Roberto -[id number] [place] [facility] Me[facility] 2020-11-27 2020-11-27 Emergency ER Provider, [facility] [id number] 17:59:00 17:59:00 Express -[id number] Johnson Mayen 2020-11-20 2020-11-20 Emergency ER Provider, [facility] [id number] 16:30:00 16:30:00 Express -[id number] Johnson Mayen 2020-09-18 2020-09-18 Emergency ER Sonny, [facility] [id number] 11:31:00 12:04:00 Elayne -[id number] [place] [facility] 2020-08-27 2020-08-27 Emergency ER Amos Meza [facility] [id number] [facility] 18:32:00 19:37:00 -[id number] [place] Wilson [facility] 2020-01-06 2020-01-06 Emergency , [facility] [id number] 09:00:16 11:05:00 Rodolfo Funes [id number] [place] 4.2.7.2.686 [place] [id number] 2020-01-06 2020-01-06 Orders Doctor MIL [id number] 00:00:00 00:00:00 Only Unassigned, LILI 350.1.13.10 Renovo [facility] [id number] [id number] 2019-12-02 2019-12-02 Emergency Roberto Cespedes [facility] [id number] 17:51:42 20:56:00 Abimbola Funes [id number] [place] 4.2.7.2.686 [place] [id number] 2019-11-22 2019-11-23 Emergency Viera, TRAUMA [id number] 21:52:37 02:47:00 Zuleyka ALARCON 350.1.13.10 [id number] [id number] Results Test Description Test Time Test Comments Results Result Comments Source BASIC METABOLIC PANEL (NA, K, CL, CO2, GLUCOSE, BUN, 2022-07 06:46:45 CREATININE, CA) Test Item Value Reference Range Interpretation Comme nts NA (test code = 9268270639) 140 mmol/L 135-145 K (test code = 1360977441) 3.6 mmol/L 3.5-5 CL (test code = 2965147334) 106 mmol/L 98-108 CO2 TOTAL (test code = 2721790319) 29 mmol/L 23-31 AGAP (test code = 3270353560) 2-16 BUN (test code = 8388865742) 12 mg/dL 7-23 GLUCOSE (test code = 4367941630) 104 mg/dL 70-110 CREATININE (test code = 0.90 mg/dL 0.5-1.04 6986106536) CALCIUM (test code = 8977244666) 8.3 mg/dL 8.6-10.6 L eGFR (test code = 8225629569) mL/min/1.73m2 CELESTINE (test code = CELESTINE) Association of Glomerular Filtration Rate (GFR) and Staging of Kidney Disease* + +-------- + ------+| GFR (mL/min/1.73 m2) ?| With Kidney Damage ?| ?Without Kidney Damage+ +-- + +| ?>90 ?| ?Stage one ?| ? Normal ?+ +------- + -------+| ?60-89 ?| ?Stage two ?| ? Decreased GFR ? + +-------- + ------+| ?30-59 ?| ?Stage three ?| ? Stage three ? + +-------- + ------+| ?15-29 ?| ?Stage four ? | ? Stage four ?+ +------- + -------+| ?<15 (or dialysis) ? ?| ?Stage five ? | ? Stage five ?+ +------- + -------+ *Each stage assumes the associated GFR level has been in effect for at least three months. ?Stages 1 to 5, with or without kidney disease, indicate chronic kidney disease. Notes: Determination of stages one and two (with eGFR >59mL/min/1.73 m2) requires estimation of kidney damage for at least three months as defined by structural or functional abnormalities of the kidney, manifested by either:Pathological abnormalities or Markers of kidney damage (including abnormalities in the composition of the blood or urine or abnormalities in imaging tests). Lab Interpretation (test code = Abnormal 73544-8) [facility] 06:46:45 Test Item Value Reference Range Interpretation Comments SALICYLATE (test code 53 mg/L = 8786120598) CELESTINE (test code = CELESTINE) Therapeutic Range: ? Analgesic and Antipyretic Use ? 20-100 mg/L ? ? Anti-Inflammatory Use ? 100-250 mg/L Toxic Range: ? Greater than 300 mg/L [facility]2022-09-03 22:30:34 Test Item Value Reference Range Interpretation Comments ACETAMINOP (test code = 10-30 L 6421574584) CELESTINE (test code = CELESTINE) Toxic: Greater than 200 ug/mL @ 4 hour post ingestion or greater than 50 ug/mL @ 12 hour post ingestion Lab Interpretation (test Abnormal code = 55342-3) 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 Luke's Health – Memorial LufkinSALICYLATE2022-09-03 22:27:02 Test Item Value Reference Range Interpretation Comments SALICYLATE (test code 49 mg/L = 8476368392) CELESTINE (test code = CELESTINE) Therapeutic Range: ? Analgesic and Antipyretic Use ? 20-100 mg/L ? ? Anti-Inflammatory Use ? 100-250 mg/L Toxic Range: ? Greater than 300 mg/L [facility]OL[facility] PAN[facility] (04568)2022-07-09 22:26:42 Test Item Value Reference Range Interpretation Comments NA (test code = 137 mmol/L 135-145 3802686061) K (test code = 3.8 mmol/L 3.5-5 6590718668) CL (test code = 106 mmol/L 98-108 2811437798) CO2 TOTAL (test code 24 mmol/L 23-31 = 7072950676) AGAP (test code = 2-16 2812448133) BUN (test code = 13 mg/dL 7-23 2734549388) GLUCOSE (test code = 103 mg/dL 70-110 2491070185) CREATININE (test code 0.91 mg/dL 0.5-1.04 = 0287570879) TOTAL BILI (test code 0.5 mg/dL 0.1-1.1 = 9369202082) CALCIUM (test code = 8.8 mg/dL 8.6-10.6 8017403284) T PROTEIN (test code 6.5 g/dL 6.3-8.2 = 2830505574) ALBUMIN (test code = 4.3 g/dL 3.5-5 8927637025) ALK PHOS (test code = 69 U/L 34-122 1803824870) ALTv (test code = 12 U/L 5-35 1742-6) AST(SGOT) (test code 15 U/L 13-40 = 3430649611) eGFR (test code = mL/min/1.73m2 4553143865) CELESTINE (test code = CELESTINE) Association of Glomerular Filtration Rate (GFR) and Staging of Kidney Disease* + + +- +| GFR (mL/min/1.73 m2) ?| With Kidney Damage ?| ?Without Kidney Damage+ ------+ ----+ ------+| ?>90 ?| ?Stage one ?| ? Normal ?+ -+ + -+| ?60-89 ?| ?Stage two ?| ? Decreased GFR ? + + +- +| ?30-59 ?| ?Stage three ?| ? Stage three ? + + +- +| ?15-29 ?| ?Stage four ? | ? Stage four ?+ -+ + -+| ?<15 (or dialysis) ? ?| ?Stage five ? | ? Stage five ?+ -+ + -+ *Each stage assumes the associated GFR level has been in effect for at least three months. ?Stages 1 to 5, with or without kidney disease, indicate chronic kidney disease. Notes: Determination of stages one and two (with eGFR >59mL/min/1.73 m2) requires estimation of kidney damage for at least three months as defined by structural or functional abnormalities of the kidney, manifested by either:Pathological abnormalities or Markers of kidney damage (including abnormalities in the composition of the blood or urine or abnormalities in imaging tests). [facility] / [id number] 22:24:21 Test Item Value Reference Range Interpretation Comments PROTIME PATIENT (test See_Comment [Auto mated message] code = 5964-2) The system [employer] generated this result transmitted ref erence range: 12.0 - 1 4.7 Seconds. The re ference range was not u sed to interpret this result as normal/abnor mal. INR (test code = 6301-6) Nor mal INR <1.1; Warfarin Therap eutic range 2.0 to 3. 0 or 2.5 to 3.5, dep ending upon the indica tions. Lab Interpretation (test Normal code = 00864-5) [facility] [id number] 22:23:00 Test Item Value Reference Range Interpretation Comments POCT PREG (test code = 1605) negative On board controls acceptable with present C Line (test code = 3574) POCT PREG LOT # (test code = 3575) [id number] POCT PREG TEST DATE (test 10/05/2023 code = 3576) Lab Interpretation (test code = Normal 07881-8) [facility] WITH [id number] 22:14:41 Test Item Value Reference Range Interpretation Comments WBC (test code = See_Comment [Automated 0690-2) message] The sy stem which generated this result transmitted reference range : 4.30 - 11.10 10*3/?L. The reference range was not used to interpret this result as normal/abnormal . RBC (test code =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
[2022-09-01] MEDS ORDERED: FLUORESCEIN SODIUM 1 MG/WRAP ONE ×2 (19:00→19:07)
[2022-09-01] MEDS ORDERED: TETRACAINE HCL 0.5% 4ML OPTH ONE ×2 (19:00→19:07)
--- NOTE | 2022-09-01 19:13 | ER ---
Nurse's Notes [facility] Name: Dara Looney Age: 47 yrs Sex: Female : 1975 Arrival Date: 09/01/2022 Time: 18:47 Bed 4 Private MD: Diagnosis: Injury of conjunctiva and corneal abrasion without foreign body, left eye Presentation: 09/01 18:52 Chief complaint: Patient states: Pt reports possible foreign body in left eye with kb3 associated pain, swelling, burning, excessive tearing x2 days. Coronavirus screen: Vaccine status: Patient reports being unvaccinated. Client denies travel out of the [place] in the last 14 days. Ebola Screen: Patient negative for fever greater than or equal to 101.5 degrees Fahrenheit, and additional compatible Ebola Virus Disease symptoms Patient denies exposure to infectious person. Patient denies travel to an Ebola-affected area in the 21 days before illness onset. No symptoms or risks identified at this time. Initial Sepsis Screen: Does the patient meet any 2 criteria? No. Patient's initial sepsis screen is negative. Does the patient have a suspected source of infection? No. Patient's initial sepsis screen is negative. Risk Assessment: Do you want to hurt yourself or someone else? Patient reports no desire to harm self or others. Onset of symptoms was August 31, 2022. 18:52 Method Of Arrival: Ambulatory kb3 18:52 Acuity: SHEILA 4 kb3 Triage Assessment: 18:53 General: Appears in no apparent distress. comfortable, Behavior is calm, cooperative. kb3 Pain: Complains of pain in left eye Pain does not radiate. Pain currently is 10 out of 10 on a pain scale. EENT: Eyes are tearing on outer aspect of conjuctiva of left eye, iris of left eye and inner aspect of conjunctiva of left eye. 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 Last tetanus immunization: up to date. - Social history:: Smoking status: Patient denies any tobacco usage or history of. Screenin:10 Abuse screen: Denies threats or abuse. Denies injuries from another. Nutritional lg3 screening: No deficits noted. Tuberculosis screening: No symptoms or risk factors identified. Fall Risk None identified. Assessment: 19:10 General: Appears in no apparent distress. comfortable, Behavior is calm, cooperative. lg3 Pain: Complains of pain in left eye Quality of pain is described as burning, tender, stinging. Neuro: No deficits noted. Velazco Agitation-Sedation Scale (RASS): 0 - Alert and Calm Level of Consciousness is awake, alert, obeys commands, Oriented to person, place, time, situation. Cardiovascular: No deficits noted. Denies chest pain, shortness of breath, Capillary refill < 3 seconds Clubbing of nail beds is absent JVD is absent Patient's skin is warm and dry. Respiratory: No deficits noted. Airway is patent Trachea midline Respiratory effort is even, unlabored, Respiratory pattern is regular, symmetrical. GI: No deficits noted. No signs and/or symptoms were reported involving the gastrointestinal system. Abdomen is round non-distended. : No deficits noted. No signs and/or symptoms were reported regarding the genitourinary system. EENT: Eyes are tearing on left eye Sclera/Cornea are reddened in left eye Reports blurred vision in left eye pain in left eye. Derm: Skin is intact, is healthy with good turgor, Skin is dry, Skin is normal, Skin temperature is warm. Musculoskeletal: No deficits noted. No signs and/or symptoms reported regarding the musculoskeletal system. Circulation, motion, and sensation intact. Range of motion: intact in all extremities. 19:30 General: discharge pending arrival of medication from other department. charge and lg3 house supervision notified. Vital Signs: 18:52 Pulse 81; Resp 20; Temp 98; Pulse Ox 98% ; Weight 89.81 kg; Height 5 ft. 5 in. (165.10 kb3 cm); Pain 10/10; 18:52 Body Mass Index 32.95 (89.81 kg, 165.10 cm) kb3 ED Course: 18:47 Patient arrived in ED. rg4 18:53 Triage completed. kb3 18:53 Arm band placed on right wrist. kb3 18:57 Milagro Melchor FNP-C is [facility]. kb 18:57 Caleb Pearce MD is Attending Physician. kb 19:00 Bebeto Calvin, RN is Primary Nurse. as6 19:10 Patient has correct armband on for positive identification. Bed in low position. Call lg3 light in reach. Side rails up X 1. Client placed on continuous cardiac and pulse oximetry monitoring. NIBP monitoring applied. Door closed. Noise minimized. Warm blanket given. Family accompanied patient. 19:40 No provider procedures requiring assistance completed. Patient did not have IV access lg3 during this emergency room visit. Administered Medications: 19:22 Drug: Tetracaine Drops 0.5 % 1 drops Route: Ophthalmic; Site: left eye; lg3 19:50 Follow up: Response: No adverse reaction as6 19:50 Drug: Polysporin (bacitracin-polymyxin) Ointment 1 application Route: Ophthalmic; Site: as6 left eye; 19:50 Follow up: Response: No adverse reaction as6 Medication: 19:10 VIS not applicable for this client. lg3 Outcome: 19:13 Discharge ordered by . kb 19:40 Discharged to home ambulatory, with significant other. lg3 19:40 Condition: stable 19:40 Discharge instructions given to patient, Instructed on discharge instructions, follow up and referral plans. Demonstrated understanding of instructions, follow-up care. 19:50 Patient left the ED. as6 Signatures: Milagro Melchor FNP-C FNP-[facility] [place] rg4 Brittany Mahajan RN RN lg3 Bebeto Calvin, RN RN as6 Laura Weathers RN RN kb3
--- NOTE | 2022-09-01 19:14 | EDPHYS ---
Physician Documentation [facility] Name: Dara Looney Age: 47 yrs Sex: Female : 1975 Arrival Date: 09/01/2022 Time: 18:47 Bed 4 Private MD: ED Physician Caleb Pearce HPI: 09/01 19:53 This 47 yrs old Female presents to ER via Ambulatory with complaints of Eye Problem. kb 19:53 The patient is experiencing pain, redness, tearing, The patient sustained an abrasion, kb to the left eye, caused by dust. Onset: The symptoms/episode began/occurred yesterday. Duration: the symptoms are continuous. Aggravated by opening eye, Alleviated by nothing. Associated signs and symptoms: Pertinent positives: None. Patient wears soft contacts. Severity of symptoms: At their worst the symptoms were moderate in the emergency department the symptoms are unchanged. The patient has not experienced similar symptoms in the past. The patient has not recently seen a physician. Pt was unpacking a box from the attic and believes something went into her left eye . 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 Last tetanus immunization: up to date. - Social history:: Smoking status: Patient denies any tobacco usage or history of. ROS: 19:52 Constitutional: Negative for fever, chills, and weight loss. kb 19:52 Eyes: Positive for pain, redness, tearing. 19:52 All other systems are negative. Exam: 19:52 Constitutional: This is a well developed, well nourished patient who is awake, alert, kb and in no acute distress. Head/Face: Normocephalic, atraumatic. ENT: Moist Mucous membranes Cardiovascular: Regular rate and rhythm with a normal S1 and S2. No gallops, murmurs, or rubs. No pulse deficits. Respiratory: Respirations even and unlabored. No increased work of breathing. Talking in full sentences Skin: Warm, dry with normal turgor. Normal color. MS/ Extremity: Pulses equal, no cyanosis. Neurovascular intact. Full, normal range of motion. Neuro: Awake and alert, GCS 15, oriented to person, place, time, and situation. Moves all extremities. Normal gait. 19:52 Eyes: Periorbital structures: appear normal, Pupils: equal, round, and reactive to light and accomodation, Extraocular movements: intact throughout, Conjunctiva: injected, in the left eye, Corneas: abrasion, that is small, at 3 o'clock, foreign body, is not appreciated. Vital Signs: 18:52 Pulse 81; Resp 20; Temp 98; Pulse Ox 98% ; Weight 89.81 kg; Height 5 ft. 5 in. (165.10 kb3 cm); Pain 10/10; 18:52 Body Mass Index 32.95 (89.81 kg, 165.10 cm) kb3 MDM: 18:57 Patient medically screened. kb 19:51 Data reviewed: vital signs, nurses notes. Data interpreted: Pulse oximetry: on room air kb is 98 %. Interpretation: normal. Counseling: I had a detailed discussion with the patient and/or guardian regarding: the historical points, exam findings, and any diagnostic results supporting the discharge/admit diagnosis, the need for outpatient follow up, an opthalmologist, to return to the emergency department if symptoms worsen or persist or if there are any questions or concerns that arise at home. 09/01 18:57 Order name: Eye Tray; Complete Time: 19:07 kb 09/01 18:57 Order name: Fluoresene Opth strip; Complete Time: 19:07 kb 09/01 18:57 Order name: Visual Acuity; Complete Time: 19:22 kb Administered Medications: 19:22 Drug: Tetracaine Drops 0.5 % 1 drops Route: Ophthalmic; Site: left eye; lg3 19:50 Follow up: Response: No adverse reaction as6 19:50 Drug: Polysporin (bacitracin-polymyxin) Ointment 1 application Route: Ophthalmic; Site: as6 left eye; 19:50 Follow up: Response: No adverse reaction as6 Disposition: 20:22 Co-signature as Attending Physician, Caleb Pearce MD. rn Disposition Summary: 09/01/22 19:13 Discharge Ordered Location: Home kb Condition: Stable kb Diagnosis - Injury of conjunctiva and corneal abrasion without foreign body, left eye kb Followup: kb - With: Emergency Department - When: As needed - Reason: Worsening of condition Followup: kb - With: Private Physician - When: 2 - 3 days - Reason: Recheck today's complaints, Continuance of care, Re-evaluation by your physician Discharge Instructions: - Discharge Summary Sheet kb - Corneal Abrasion, [id number] kb Forms: - Medication Reconciliation Form kb - Thank You Letter kb - Antibiotic Education kb - Prescription Opioid Use kb Signatures: Milagro Melchor, AIRCRAFT STRUCTURAL REPAIRER-C AIRCRAFT STRUCTURAL REPAIRER-Ckb Caleb Pearce MD MD rn Gibson, Lacie RN RN lg3 Bebeto Calvin, RN RN as6 Laura Weathers, RN RN kb3
[2022-09-01 20:44] VITALS: TEMP 98; O2SAT 98
== END 2022-09-01 19:50 | disposition home or self-care (01) ==
LOC: ER 18:42
DX: S05.02XA Injury of conjunctiva and corneal abrasion without foreign body, left eye, initial encounter (principal); Z85.3 Personal history of malignant neoplasm of breast
CPT/HCPCS: 99282

== ENCOUNTER 2022-09-25 20:53 | Observation (INO) | payer OTHER ==
--- OUTSIDE RECORDS SUMMARY | 2022-09-25 20:59 | XMS REPORT | Continuity of Care Document ---
:1975 Author Organization [facility] t Address [address] [place] [address] Care Team Providers Name Role Phone Roberto Elaine Primary Care Physician Stephanie Nicholas Attending Clinician Unavailable Stephanie Nicholas Attending Clinician Unavailable ROBERTO WILDE Attending Clinician Unavailable Roberto Elaine Attending Clinician GILMA BRUSH Attending Clinician Unavailable Georgina Brenner DO Attending Clinician Gilma Brush NP Attending Clinician Yahir Madden Attending Clinician Unavailable Melody, Francoise Dvaila Attending Clinician Unavailable Jocelyne Campbell Attending Clinician [...] Rodolfo Blackmon DO Attending Clinician Doctor Unassigned, [place] Attending Clinician Unavailable Roberto Joseph Attending Clinician Zuleyka Veira MD Attending Clinician Garfield Saxena Admitting Clinician Unavailable Payers Payer Name Policy Type Policy Number Effective Date Expiration Date Kyle PINEDAS [id number] 2022 HEALTH 00:00:00 Problems Condition Condition Condition [...] 4 it y of ve ve 00:00: [address] Low serum Low serum Disease Active Uni vers HDL HDL 4-05 ity of 00:00: [address] Obesity Obesity Disease Active Overview: Univ ers 3 Formattin ity of 00:00: g of this [place] 00 note Medical might be Branch different from the original. 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 [facility] - infection Crisp (Roberto) Hypotensio Problem [facility] - [facility] (Roberto) [id number] Fatty Problem Active [facility] [id number] Gastropare Problem Active [facility] sis [facility] ent Clinics Allergies, Adverse Reactions, Alerts Allergy Allergy Status Severity Reaction(s) Onset Inactive Treating Comm ents Source Name Type Date Date Clinician No Known DA Active U [facility] 00 [facility] Reynosoimes NO KNOWN Drug Active Univers ALLERGIE Class ity of S [facility] Social History Social Habit Start Date Stop Date Quantity Comments Source Sex [facility]igned [facility] [place] [facility] History of [facility] Tobacco Use [place] [facility] Exposure to 2022-06-29 2022-07-09 Unable to assess Univers ity of SARS-CoV-2 00:00:00 16:49:00 [facility] [place] Alcohol intake 2019-12-02 2019-12-02 0 /d University 00:00:00 00:00:00 [facility] Tobacco use and 2017-01-25 2017-01-25 Smokeless tobacco Un iversity of exposure 00:00:00 00:00:00 non-user [facility] Smoking Status Start Date Stop Date Source Unknown if ever smoked [facility] (Roberto) Never Smoker [facility] Medications Ordered Filled Start Stop [...] 50 MG 00:00: eded} 00 traMADol traMADol No 1{table traMADol HCl 50 [...] 1-22 Hours [facility] - 5/325 20:14: St. ([place]) 5 19 Selvin MG/325 MG (Roberto) Tab chlorphenir 2021- No [id number] 4mg Take 1 Univers amine 4 mg 01-05 tablet by ity of tablet 00:00: 00:00 mouth [place] 00 :00 every 6 Medical (six) Branch hours as needed for Allergies or Runny nose. ketorolac 2021- No [id number] 10mg Take 1 Univers 10 mg 12-02 tablet by ity of tablet 00:00: 00:00 mouth [place] 00 :00 every 6 Medical (six) Branch hours as needed for Pain (scale 4-6). traMADol 50 2021- No [id number] 50mg Take 1 Univers mg tablet 1-27 09-03 tablet by ity of 00:00: 00:00 mouth [place] 00 :00 every 6 Medical (six) Branch hours as needed for Pain (scale 4-6). acetaminoph 2021- No [id number] 1{tbl} Take 1-2 Univers en-codeine 1-18 09-03 tablets by it y of 300-30 mg 00:00: 00:00 mouth [place] tablet 00 :00 every 6 Medical (six) Branch hours as needed for Pain (scale 1-3). acetaminoph 2018-11- No [id number] 1{tbl} Take 1 Univers en-codeine 0-02 09-03 [...] Immunizations Ordered Filled Immunization Date Status Comments [facility] e Immunization Name Name Tdap (Boostrix) Tdap (Boostrix) 2020-11-[address] [facility] 10:48:00 [facility] Tdap (Boostrix) Tdap (Boostrix) 2020-11-[address] [facility] 10:48:00 [facility] Tdap (Boostrix) Tdap (Boostrix) 2020-11-[address] [facility] 10:48:00 [facility] Tdap (Boostrix) Tdap (Boostrix) 2020-11-[address] [facility] 10:48:00 [facility] Tdap (Boostrix) Tdap (Boostrix) 2020-11-[address] [facility] 10:48[facility]00 [facility] Td 2019-08-07 Completed University of 00:00:00 [facility] Td 2019-08-07 Completed [facility] 00:00:00 [facility] Vital Signs Vital Name Observation Time Observation Value Comments Source Body temperature 2022-07-10 10:14:56 36.78 [facility] Sy[facility]olic blood 2022-07-10 08:00:00 104 mm[Hg] Univer sity of pressure [facility] Diastolic blood 2022-07-10 08:00:00 70 mm[Hg] Unive rsity of pressure [facility] Heart rate 2022-07-10 08:00:00 65 /min [facility] Respiratory rate 2022-07-10 08:00:00 12 /min [facility] Oxygen saturation in 2022-07-10 08:00:00 98 /min [facility] Arterial blood by [facility] Pulse oximetry Branch Body height 2022-07-09 21:56:00 165.1 cm [facility] Body weight 2022-07-09 21:56:00 95.255 kg [facility] BMI 2022-07-09 21:56:00 34.95 kg/m2 [facility] weight 2022-02-07 11:15:00 206.6 [lb_av] [facility] height 2022-02-07 11:15:00 65 [in_i] [facility] bmi 2022-02-07 11:15:00 34.38 kg/m2 [...] /min [facility] blood pressure 2022-02-07 11:15:00 120 mm[Hg] [facility] systolic [facility] blood pressure 2022-02-07 11:15:00 70 mm[Hg] [facility] diastolic [facility] weight 2021-12-29 14:45:00 201 [lb_av] NIVIA [facility] height 2021-12-29 14:45:00 65 [in_i] [facility] bmi 2021-12-29 14:45:00 33.44 kg/m2 [facility] heart rate 2021-12-29 14:45:00 78 /min [facility] temperature 2021-12-29 14:45:00 97.6 [degF] [facility] oximetry 2021-12-29 14:45:00 99 % [facility] blood pressure 2021-12-29 14:45:00 112 mm[Hg] [facility] systolic [facility] blood pressure 2021-12-29 14:45:00 62 mm[Hg] [facility] diastolic [facility] NEWS Pulse 2021-09-11 22:47:30 51-90 /min NEWS Respirations 2021-09-11 22:47:30 12-20 /min NEWS Systolic Blood 2021-09-11 22:47:30 91-100 mm[Hg] Pressure NEWS Temperature 2021-09-11 22:47:30 36.1-38.0 C Weight Bearing Status 2021-09-11 22:47:30 Not specified Body Mass Index (BMI) 2021-09-11 22:47:30 33.9 Height 2021-09-11 22:47:30 64.96 Temperature 2021-09-11 22:47:30 98.4 Weight 2021-09-11 22:47:30 3.263 Weight Bearing Status 2021-09-11 22:47:29 Not specified Body Mass Index (BMI) 2021-09-11 22:47:29 33.9 Height 2021-09-11 22:47:29 64.96 Temperature 2021-09-11 22:47:29 98.4 Weight 2021-09-11 22:47:29 3.263 NEWS Pulse 2021-09-11 22:47:29 51-90 /min NEWS Respirations 2021-09-11 22:47:29 12-20 /min NEWS Systolic Blood 2021-09-11 22:47:29 91-100 mm[Hg] Pressure NEWS Temperature 2021-09-11 22:47:29 36.1-38.0 C NEWS Pulse 2021-09-11 20:16:09 51-90 /min NEWS [...] 2021-05-27 19:49:00 165.1 cm WEIGHT 2021-05-27 19:49:00 92.938559 kg Procedures Procedure Date / Time Performing Clinician Source Performed BASIC METABOLIC PANEL 2022-07-10 06:14:00 Gilma Brush [facility] (NA, K, CL, CO2, Medical Branch GLUCOSE, BUN, CREATININE, CA) SALICYLATE 2022-07-10 06:14:00 Gilma Brush [facility] BASIC METABOLIC PANEL 2022-07-10 00:12:00 Gilma Brush [facility] (NA, K, CL, CO2, Medical Branch GLUCOSE, BUN, CREATININE, CA) SALICYLATE 2022-07-10 00:12:00 Gilma Brush [facility] POCT TEST 2022-07-09 22:23:00 Georgina Brenner [facility] URINALYSIS 2022-07-09 22:10:00 Georgina Brenner [facility] URINE DRUG (IMMUNOASSAY) 2022-07-09 22:10:00 Georgina Brenner [facility] nch SCREEN W/O REFLEX AC PANEL 21 + LACTIC 2022-07-09 22:00:00 Georgina Brenner [facility] ACID [facility] COMP. METABOLIC PANEL 2022-07-09 21:59:00 Georgina Brenner [facility] ([id number]) [facility] SALICYLATE 2022-07-09 21:59:00 Georgina Brenner [facility] ETHANOL 2022-07-09 21:59:00 Georgina Brenner [facility] CBC WITH DIFF 2022-07-09 21:59:00 Georgina Brenner [facility] PROTHROMBIN TIME / INR 2022-07-09 21:59:00 Georgina Brenner [facility] COVID-19 (MOLECULAR 2022-07-09 21:59:00 Georgina Brenner [facility] NUCLEIC ACID AMPLIFICATION) COVID-19 (ID NOW RAPID 2022-07-09 21:59:00 Georgina Brenner [facility] TESTING) [facility] Encounters Start End Encounter Admission Attending Care Care Encounter Source Date/Time Date/Time Type Type Clinicians Facility Department ID 2022-09-13 Outpatient KAITLIN Nicholas [id number] 09:52:03 Stephanie [id number] [facility] ent Clinics 2022-02-23 Outpatient KAITLIN Nicholas [facility] [id number] 11:20:06 Stephanie [id number] [facility] ent Clinics 2022-02-07 Outpatient KAITLIN Nicholas [facility] [id number] 10:55:03 Stephanie [id number] [facility] ent [facility] 2022-01-04 Inpatient R MARCIA NicholasJ STLSJ [id number] [facility] 13:45:00 Stephanie -[id number] [facility] Mejia 2021-12-29 [facility] [id number] 16:07:01 Stephanie [id number] [facility] 2021-09-02 Emergency [facility] [id number] Univers 11:54:15 ity [facility] 2022-07-22 2022-07-22 Outpatient R [facility] [id number] Univers 10:00:00 10:00:00 ROBERTO mccain [facility] 2022-07-22 2022-07-22 Telephone [facility] [id number] Univers 00:00:00 00:00:00 [facility] [id number] it y of MARIN 4.2.7.2.686 Zaid as ZULMA?BLEA [id number] [address] MEDICAL OFFICE BUILDING 2022-07-20 2022-07-20 Outpatient R [facility] [id number] Univers 10:00:00 10:00:00 ROBERTO mccain [facility] 2022-07-09 2022-07-10 Emergency X TRUDI [facility] ERT [id number] Univers 16:59:00 08:51:00 GILMA mccain [facility] 2022-07-09 2022-07-10 Emergency Georgina Brenner [facility] [id number] Univers 16:59:00 08:51:00 Gilma Brush [id number] ity of [place] 4[place]2.7.2.686 [place] [facility] [id number] [address] 2022-02-14 2022-02-14 (TEL) [facility] [id number] [facility] 00:00:00 00:00:00 [facility] ent [facility] 2022-02-07 2022-02-07 Office MARCIAJC STLSJC [id number] [facility] 00:00:00 00:00:00 Visit, Est Smith es - Pt., Level St 3 [facility] 2022-02-07 2022-02-07 (TEL) [facility] [id number] [facility] 00:00:00 00:00:00 [facility] 2022-01-07 2022-01-07 Outpatient R Cristopher, [facility] [id number] 14:33:00 14:34:00 Stephanie -[id number] Johnson Wilson Roberto 2022-01-04 2022-01-04 (TEL) STLS STLSJC [id number] [facility] 00:00:00 00:00:00 [facility] 2021-12-29 2021-12-29 Office [facility] [id number] [facility] 00:00:00 00:00:00 Visit, Est Smith es - Pt., Level [facility] 4 [facility] 2021-09-27 2021-09-27 Emergency ER Chano, [facility] [id number] 19:15:00 21:37:00 Yahir -[id number] Johnson Mayen 2021-09-27 2021-09-27 Departed [id number] Crisp [id number] 19:15:00 21:37:00 Emergency [id number] Regional [id number] [facility] - -[id number] [facility] [id number] St. [id number] Ctr-EMERGEN [id number] Anastasiya seph SERVICES ([facility]) 2021-06-30 2021-06-30 [id number] [facility] 14:04:00 14:05:00 chema, -[id number] Johnson garduno Jocelyne St [facility] Abbott daniel 2021-05-30 2021-06-05 Inpatient ER Geovany STLSJX U [id number] STLSJX 16:25:00 16:34:00 Jez -[id number] Alireza 2021-05-27 2021-05-27 Emergency ER Timoteo, STJX [facility] [id number] STLSJX 10:05:00 10:05:00 Roberto -[id number] 2021-05-25 2021-05-25 Emergency ER Blake, [facility] [id number] 10:57:00 13:57:00 Emigdio -[id number] [facility] Mejia 2021-03-23 2021-03-23 Emergency ER Keyshawn, [facility] [id number] 12:14:00 14:31:00 Libra -[id number] [facility] Rm 2021-01-08 2021-01-08 Emergency ER Ted, [facility] [id number] 13:06:00 16:10:00 Bibi -[id number] [facility] Mejia 2021-01-07 2021-01-07 Emergency ER Brayden, [facility] [id number] 15:52:00 16:42:00 Isrrael -[id number] [facility] Abbott daniel 2020-12-29 2020-12-29 Outpatient R Arnaldo, [facility] [id number] 07:20:00 07:21:00 Roberto -[id number] [facility] Mejia 2020-11-27 2020-11-27 Emergency ER Provider, [facility] [id number] 17:59:00 17:59:00 Express -[id number] [facility] Mejia 2020-11-20 2020-11-20 Emergency ER Provider, [facility] [id number] 16:30:00 16:30:00 Express -[id number] [facility] Mejia 2020-09-18 2020-09-18 Emergency ER Sonny, [facility] [id number] 11:31:00 12:04:00 Elayne -[id number] [facility] Abbott daniel 2020-08-27 2020-08-27 Emergency ER Amos Meza [facility] [id number] [facility] 18:32:00 19:37:00 -[id number] [facility] 2020-01-06 2020-01-06 Emergency , [facility] [id number] 09:00:16 11:05:00 Rodolfo Whitten 350.1.13.10 [place] 4.2.7.2.686 [place] [id number] 2020-01-06 2020-01-06 Orders Doctor MIL [id number] 00:00:00 00:00:00 Only Unassigned, LILI 350.1.13.10 [facility] 4.2.7.2.686 [id number] 2019-12-02 2019-12-02 Emergency Roberto Cespedes [facility] [id number] 17:51:42 20:56:00 Abimbola Whitten 350.1.13.10 [place] 4.2.7.2.686 [place] [id number] 2019-11-22 2019-11-23 Emergency Viera, TRAUMA [id number] 21:52:37 02:47:00 Zuleyka D DORIAN 350.1.13.10 4.2.7.2.686 [id number] Results Test Description Test Time Test Comments Results Result Comments Source BASIC METABOLIC PANEL (NA, K, CL, CO2, GLUCOSE, BUN, 2022-07 06:46:45 CREATININE, CA) Test Item Value Reference Range Interpretation Comme nts NA (test code = 7899669860) 140 mmol/L 135-145 K (test code = 0006257134) 3.6 mmol/L 3.5-5 CL (test code = 4170003623) 106 mmol/L 98-108 CO2 TOTAL (test code = 8774981674) 29 mmol/L 23-31 AGAP (test code = 5000135500) 2-16 BUN (test code = 4793426623) 12 mg/dL 7-23 GLUCOSE (test code = 4910036768) 104 mg/dL 70-110 CREATININE (test code = 0.90 mg/dL 0.5-1.04 5290384922) CALCIUM (test code = 5715344783) 8.3 mg/dL 8.6-10.6 L eGFR (test code = 3108233683) mL/min/1.73m2 CELESTINE (test code = CELESTINE) Association [...] tests). Lab Interpretation (test code = Abnormal 78167-8) [facility] 06:46:45 Test Item Value Reference Range Interpretation Comments SALICYLATE (test code 53 mg/L = 7568860753) CELESTINE (test code = CELESTINE) Therapeutic Range: ? Analgesic and Antipyretic Use ? 20-100 mg/L ? ? Anti-Inflammatory Use ? 100-250 mg/L Toxic Range: ? Greater than 300 mg/L [facility]2022-09-03 22:30:34 Test Item Value Reference Range Interpretation Comments ACETAMINOP (test code = 10-30 L 3796714787) CELESTINE (test code = CELESTINE) Toxic: Greater than 200 ug/mL @ 4 hour post ingestion or greater than 50 ug/mL @ 12 hour post ingestion Lab Interpretation (test Abnormal code = 55188-3) [facility]2022-09-03 22:30:14 ALCOHOL<10mg/dL07/09/2022 5:30 PM [facility]<10 Eqbbfyaj88-700 Toxic>100 Depression of PNEUDRAULIC SYSTEMS MECHANIC>400 Fatalities ReportedUnSt. [facility] HospitalSALICYLATE2022-09-03 22:27:02 Test Item Value Reference Range Interpretation Comments SALICYLATE (test code 49 mg/L = 6487550479) CELESTINE (test code = CELESTINE) Therapeutic Range: ? Analgesic and Antipyretic Use ? 20-100 mg/L ? ? Anti-Inflammatory Use ? 100-250 mg/L Toxic Range: ? Greater than 300 mg/L [facility]. METABOLIC PANEL (38428)2022-07-09 22:26:42 Test Item Value Reference Range Interpretation Comments NA (test code = 137 mmol/L 135-145 3557398932) K (test code = 3.8 mmol/L 3.5-5 6080476978) CL (test code = 106 mmol/L 98-108 0416538643) CO2 TOTAL (test code 24 mmol/L 23-31 = 1881737087) AGAP (test code = 2-16 5117677384) BUN (test code = 13 mg/dL 7-23 3632511929) GLUCOSE (test code = 103 mg/dL 70-110 1091429218) CREATININE (test code 0.91 mg/dL 0.5-1.04 = 0300871538) TOTAL BILI (test code 0.5 mg/dL 0.1-1.1 = 2035800711) CALCIUM (test code = 8.8 mg/dL 8.6-10.6 7176305218) T PROTEIN (test code 6.5 g/dL 6.3-8.2 = 2665677956) ALBUMIN (test code = 4.3 g/dL 3.5-5 5204990097) ALK PHOS (test code = 69 U/L 34-122 3062953774) ALTv (test code = 12 U/L 5-35 2-6) AST(SGOT) (test code 15 U/L 13-40 = 1468366162) eGFR (test code = mL/min/1.73m2 8424205458) CELESTINE (test code = CELESTINE) Association of [...] or urine or abnormalities in imaging tests). [facility] / [id number] 22:24:21 Test Item Value Reference Range Interpretation Comments PROTIME PATIENT (test See_Comment [Auto mated message] code = 5964-2) The system [employer] generated this result transmitted ref erence range: 12.0 - 1 4.7 Seconds. The re ference range was not u sed to interpret this result as normal/abnor mal. INR (test code = 6301-6) Nor mal INR <1.1; Warfarin Therap eutic range 2.0 to 3. 0 or 2.5 to 3.5, dep ending upon the indica tions. Lab Interpretation (test Normal code = 68930-5) [facility] [id number] 22:23:00 Test Item Value Reference Range Interpretation Comments POCT PREG (test code = 1605) negative On board controls acceptable with present C Line (test code = 3574) POCT PREG LOT # (test code = 3575) [id number] POCT PREG TEST DATE (test 10/05/2023 code = 3576) Lab Interpretation (test code = Normal 74343-2) [facility] WITH [id number] 22:14:41 Test Item Value Reference Range Interpretation Comments WBC (test code = See_Comment [Automated 0376-2) message] The sy stem which generated this result transmitted reference range : 4.30 - 11.10 10*3/?L. The reference range was not used to interpret this result as normal/abnormal . RBC (test code = See_Comment [Automated 024-8) message] The sy stem which generated this [...] RDW-SD (test code = 39.9 fL 39-49.9 12373-7) RDW-CV (test code = 12.9 % 12-15.5 788-0) PLT (test code = See_Comment H [Automated 547-3) message] The sy stem which generated this result transmitted reference range : 166 - 358 10*3/ ?L. The reference r fermin was not used to interpret this result as normal/abnormal . MPV (test code = 10.2 fL 9.5-12.9 10517-1) NRBC/100 WBC (test See_Comment [Automat ed code = 6750455233) message] The system which generated this result transmitted reference range : 0.0 - 10.0 /100 WBCs. The refer ence range was not u sed to interpret th is result as normal/abnormal . NRBC x10^3 (test code See_Comment [Auto mated = 0024251453) message] The s ystem which generated this result transmitted reference range : 10*3/?L. The reference range was not used to interpret this result as normal/abnormal . GRAN MAT (NEUT) % 63.2 % (test code = 770-8) IMM GRAN % (test code 0.40 % = 9160083676) LYMPH % (test code = 26.3 % 736-9) MONO % (test code = 9.6 % 5905-5) EOS % (test code = 0.2 % 713-8) BASO % (test code = 0.3 % 706-2) GRAN MAT x10^3(ANC) 6.85 10*3/uL 1.88-7.09 (test code = 7430154946) IMM GRAN x10^3 (test 0.04 10*3/uL 0-0.06 code = 0564926224) LYMPH x10^3 (test code 2.85 10*3/uL 1.32-3.29 = 731-0) MONO x10^3 (test code 1.04 10*3/uL 0.33-0.92 H = 742-7) EOS x10^3 (test code = 0.03-0.39 L 711-2) BASO x10^3 (test code 0.03 10*3/uL 0.01-0.07 = 704-7) Lab Interpretation Abnormal (test code = 99992-4) [facility] PAN[facility] 21 + LACTIC [id number] 22:05:55 Test Item Value Reference Range Interpretation Comments PH (test code = 7.32-7.42 H 7826088576) PCO2 CHANCE (test code = See_Comment L [Auto mated 3721962336) message] The sy stem which generated this result transmitted reference range : 41 - 51 mmHg. The reference range was not used to interpret this result as normal/abnormal . PO2 CHANCE (test code = See_Comment H [Autom ated 2021509542) message] The sy stem which generated this result transmitted reference range : 25 - 40 mmHg. The reference range was not used to interpret this result as normal/abnormal . HCO3 CHANCE (test code = See_Comment L [Auto mated 9357212941) message] The sy stem which generated this result transmitted reference range : 24 - 28 mEq/L. The reference range was not used to interpret this result as normal/abnormal . AC VBE(BEAKER) (test mEq/L code = 2943560102) THB CHANCE (test code = 14.2 g/dL 12-16 4298388517) %O2HB CHANCE (test code = 91.2 % 52-63 H 6549016232) %COHB CHANCE (test code = 0.4 % 0-1.5 1793373984) %METHB CHANCE (test code = 0.1 % 0.4-1.5 L 5619583060) VOL%O2 CHANCE (test code = 18.2 % 6-12 H 2536758354) NA (test code = 137 mmol/L 135-145 0220874149) K+ (test code = 3.5 mmol/L 3.5-5 8462382636) AC CA IONZ (test code = 4.40 mg/dL 4.5-5.3 L 8755160818) GLUCOSE (test code = 101 mg/dL 70-110 3210477526) LACTIC ACID (test code 0.89 mmol/L 0.5-2.2 = 3801311122) Lab Interpretation Abnormal (test code = 33030-8) [facility] - [id number] 20:45:00 Test Item Value Reference Range Interpretation Comments Chemistry - Specials (test code 4.0123 uIU/mL 0.35-4.94 N = TSH3) [id number] 20:20:00 Test Item Value Reference Range Interpretation [...] HPF None Seen A Urine Source: Urine [id number] 20:18:00 Test Item Value Reference Range Interpretation [...] code 9 U/L 8-55 N = ALT) [id number] 19:59:00 Test Item Value Reference Range Interpretation [...] (test code = 2951-2) 139 mmol/L 136-145 [facility] [place])Serum or plasma potassium measurement (moles/volume)2021-09-27 19:51:00 Test Item Value Reference Range Interpretation Comments Potassium Level (test code = 3.6 mmol/L 3.5-5.1 2823-3) [facility] [place])Serum or plasma chloride measurement (moles/volume)2021-09-27 19:51:00 Test Item Value Reference Range Interpretation Comments Chloride Level (test code = 104 mmol/L 98-107 5-0) [facility])Serum or plasma carbon dioxide, total measurement (moles/volume)2021-09-27 19:51:00 Test Item Value Reference Range Interpretation Comments Carbon Dioxide Level (test code = 28 mmol/L 2028-07) [facility])Serum or plasma anion [id number] 19:51:00 Test Item Value Reference Range Interpretation Comments Anion Gap (test code = 12772-7) 11 mmol/L - [facility] [place]Serum or plasma urea nitrogen measurement (mass/volume)2021-09-27 19:51:00 Test Item Value Reference Range Interpretation Comments Blood Urea Nitrogen (test code = 13 mg/dL 7.0-18.7 3094-0) [facility] [place])Serum or plasma creatinine measurement (mass/volume)2021-09-27 19:51:00 Test Item Value Reference Range Interpretation Comments Creatinine (test code = 2160-0) 1.18 mg/dL 0.6-1.1 [facility] [place])Glucose [Mass/volume] in Serum or Plasma 2021-09-27 19:51:00 Test Item Value Reference Range Interpretation Comments Glucose Level (test code = 2345-7) 92 mg/dL 70-105 [facility] [place])Serum or plasma calcium measurement (mass/volume)2021-09-27 19:51:00 Test Item Value Reference Range Interpretation Comments Calcium Level (test code = 07541-4) 8.9 mg/dL 7.8-10.44 [facility] [place])Serum or plasma total bilirubin measurement (mass/volume)2021-09-27 19:51:00 Test Item Value Reference Range Interpretation Comments Total Bilirubin (test code = 0.4 mg/dL 0.2-1.2 1975-2) [facility] [place])Serum or plasma protein measurement (mass/volume)2021-09-27 19:51:00 Test Item Value Reference Range Interpretation Comments Serum Total Protein (test code = 6.7 g/dL 6.0-8.3 2885-2) [facility] [place])Serum or plasma albumin measurement by bromocresol green (BCG) dye binding method (fj7583-37-50 19:51:00 Test Item Value Reference Range Interpretation Comments Albumin (test code = 76088-9) 3.9 g/dL 3.5-5.0 [facility] [place])Globulin [Mass/volume] in Serum by calculation 2021-09-27 19:51:00 Test Item Value Reference Range Interpretation Comments Globulin (test code = 44546-9) 2.8 g/dL 2.4-3.5 [facility] [place])Albumin/Globulin [Mass Ratio] in Serum or Urgyqe8020-46-62 19:51:00 Test Item Value Reference Range Interpretation Comments Albumin/Globulin Ratio (test code = 1.4 g/dL 1.2-2.2 1759-0) [facility] [place])Alkaline phosphatase [Enzymatic activity/volume] in Serum or Zupjtk9513-06-17 19:51:00 Test Item Value Reference Range Interpretation Comments Alkaline Phosphatase (test code = 63 U/L 40-110 6768-6) [facility] [place])Serum or plasma aspartate aminotransferase measurement (enzymatic activity/volume)2021-09-27 19:51:00 Test Item Value Reference Range Interpretation Comments Aspartate Amino Transf (AST/SGOT) (test 9 U/L 5-34 code = 1920-8) [facility] [place])Serum or plasma alanine aminotransferase measurement without P-5'-P (enzymatic buinit5629-06-41 19:51:00 Test Item Value Reference Range Interpretation Comments Alanine Aminotransferase (ALT/SGPT) 9 U/L 8-55 (test code = 1744-2) [facility] [place])Serum or plasma thyrotropin measurement by detection limit <= 0.005 miu/l (units/x0982-69-66 19:51:00 Test Item Value Reference Range Interpretation Comments TSH 3rd Generation (test code = 4.0123 uIU/mL 0.35-4.94 52046-2) [facility] [place])Leukocytes [#/volume] in Blood by Automated dnlir1847-46-68 19:51:00 Test Item Value Reference Range Interpretation Comments White Blood Count (test code = 9.4 thou/uL 4.8-10.8 6690-2) [facility] [place])Blood erythrocytes automated count (number/volume)2021-09-27 19:51:00 Test Item Value Reference Range Interpretation Comments Red Blood Count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
[2022-09-25 21:37] LABS: Absolute Lymphocytes (CBC) 2.4 K/uL (0.7-4.9); Hematocrit 40.8 % (36.0-45.0); Lymphocytes % 22.6 % (15.3-44.8); MCV 86.1 fL (80-100); MPV 8.9 fL (7.6-11.3); RBC Red Blood Cell Count 4.74 M/uL (3.86-4.86)
[2022-09-25 21:51] LABS: Albumin 3.9 g/dL (3.4-5.0); Bilirubin Total 0.5 mg/dL (0.2-1.0); Potassium 3.7 mmol/L (3.5-5.1); Protein, Total 7.5 g/dL (6.4-8.2); Troponin High Sensitivity 4.7 pg/mL (<58.9)
[2022-09-25] MEDS ORDERED: MORPHINE 4 MG/ML SYR ONE (21:53)
[2022-09-25] MEDS ORDERED: ONDANSETRON 4 MG/2 ML VIAL ONE (21:53)
[2022-09-25] MEDS ORDERED: ASPIRIN 81 MG CHEWABLE TABLET ONE (21:53)
[2022-09-25] MEDS ORDERED: NITROGLYCERIN 0.4 MG/TAB SL ONE (21:54)
--- NOTE | 2022-09-25 22:10 | RAD REPORT ---
EXAM DESCRIPTION: RAD - Chest Single View - 09/25/2022 10:01 pm CLINICAL HISTORY: CHEST PAIN Chest pain. COMPARISON: Chest Single View dated 05/18/2019; Chest Single View dated 01/21/2019; Chest Single View dated 11/13/2018; CHEST PA AND LAT 2 VIEW dated 01/08/2014 FINDINGS: Portable technique limits examination quality. The lungs are grossly clear. The heart is normal in size. No displaced fractures. IMPRESSION: No acute intrathoracic process suspected.
--- NOTE | 2022-09-25 23:11 | ER ---
Nurse's Notes [facility] Name: Dara Looney Age: 47 yrs Sex: Female : 1975 Arrival Date: 09/25/2022 Time: 20:53 Bed 23 Private MD: Diagnosis: Chest pain, unspecified Presentation: 09/25 21:50 Chief complaint: Patient states: "I'm having chest pain and numbness down my left as6 side". Coronavirus screen: At this time, the client does not indicate any symptoms associated with coronavirus-19. Ebola Screen: No symptoms or risks identified at this time. Initial Sepsis Screen: Does the patient meet any 2 criteria? No. Patient's initial sepsis screen is negative. Does the patient have a suspected source of infection? No. Patient's initial sepsis screen is negative. Risk Assessment: Do you want to hurt yourself or someone else? Patient reports no desire to harm self or others. Onset of symptoms was September 25, 2022. 21:50 Method Of Arrival: Ambulatory as6 21:50 Acuity: SHEILA 3 as6 Triage Assessment: 21:52 General: Appears uncomfortable, Behavior is calm, cooperative. Pain: Complains of pain as6 in chest. Cardiovascular: Reports chest pain. 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 - Social history:: Smoking status: Patient denies any tobacco usage or history of. Screenin:00 Abuse screen: Denies threats or abuse. Nutritional screening: No deficits noted. jb4 Tuberculosis screening: No symptoms or risk factors identified. Fall Risk None identified. Assessment: 23:00 Reassessment: Patient appears in no apparent distress at this time. Patient and/or jb4 family updated on plan of care and expected duration. Pain level reassessed. Patient is alert, oriented x 3, equal unlabored respirations, skin warm/dry/pink. See triage note. 09/26 00:08 Reassessment: Patient appears in no apparent distress at this time. Patient and/or jb4 family updated on plan of care and expected duration. Pain level reassessed. Patient is alert, oriented x 3, equal unlabored respirations, skin warm/dry/pink. 01:00 Reassessment: Patient appears in no apparent distress at this time. Patient and/or jb4 family updated on plan of care and expected duration. Pain level reassessed. Patient is alert, oriented x 3, equal unlabored respirations, skin warm/dry/pink. 02:00 Reassessment: Patient appears in no apparent distress at this time. Patient and/or jb4 family updated on plan of care and expected duration. Pain level reassessed. Patient is alert, oriented x 3, equal unlabored respirations, skin warm/dry/pink. Vital Signs: 09/25 21:35 BP 107 / 78; Pulse 91; Resp 32; Temp 99.2(O); Pulse Ox 99% on R/A; Weight 89.81 kg; mm9 Height 5 ft. 5 in. (165.10 cm); Pain 10/10; 09/26 00:08 BP 90 / 49; Pulse 72; Resp 15; Pulse Ox 99% on R/A; jb4 00:30 BP 93 / 59; Pulse 70; Resp 14; Pulse Ox 97% on R/A; jb4 01:34 BP 93 / 57; Pulse 84; Resp 18 S; Pulse Ox 99% on R/A; as6 09/25 21:35 Body Mass Index 32.95 (89.81 kg, 165.10 cm) mm9 ED Course: 09/25 20:53 Patient arrived in ED. as 20:58 Bettina Philippe MD is Attending Physician. sd2 21:32 CBC with Diff Sent. mm9 21:32 CMP Sent. mm9 21:32 Troponin High Sensitivity Sent. mm9 21:32 Patient has correct armband on for positive identification. Placed in gown. Bed in low mm9 position. Call light in reach. Side rails up X 1. Warm blanket given. phototypesetting equipment monitor on. Pulse ox on. NIBP on. 21:51 Triage completed. as6 21:52 Arm band placed on. as6 22:03 XRAY Chest (1 view) In Process Unspecified. EDMS 23:00 No provider procedures requiring assistance completed. Patient maintains SpO2 jb4 saturation greater than 95% on room air. 23:10 Francis Dunn MD is Hospitalizing Provider. sd2 23:13 Bill Neal, RN is Primary Nurse. jb4 23:39 COVID-19/FLU A+B Sent. jb4 23:39 DD Sent. jb4 09/26 00:12 Patient admitted, IV remains in place. jb4 01:39 CT Chest For PE Angio In Process Unspecified. EDMS Administered Medications: 09/25 21:56 Drug: Nitroglycerin 0.4 mg Route: Sublingual; eh3 21:57 Drug: Aspirin Chewable Tablet 324 mg Route: PO; eh3 22:00 Drug: morphine 4 mg Route: IVP; Infused Over: 4 mins; Site: left antecubital; eh3 22:00 Drug: Zofran (Ondansetron) 4 mg Route: IVP; Site: left antecubital; eh3 22:51 Drug: Nitroglycerin 0.4 mg Route: Sublingual; eh3 23:55 Drug: NS 0.9% 500 ml Route: IV; Rate: bolus; Site: left antecubital; jb4 23:55 Not Given (Patient Refused): fentaNYL (PF) 50 mcg IVP once jb4 09/26 00:54 Drug: NS 0.9% 1000 ml Route: IV; Rate: 100 ml/hr; Site: left antecubital; jb4 00:54 Not Given (Patient Refused): Tylenol 1000 mg PO once jb4 Medication: 01:35 VIS not applicable for this client. as6 Outcome: 09/25 23:10 Decision to Hospitalize by Provider. sd2 09/26 00:12 Admitted to ER Hold. Please see [facility] for further documentation. jb4 Condition: stable Discharge instructions given to patient, Instructed on the need for admit, Demonstrated understanding of instructions. 09:28 Patient left the ED. iw Signatures: Dispatcher [employer] EDMS Dorcas Shaw Irene, DENNIS COLLINS iw Bill Neal, DENNIS COLLINS jb4 Bebeto Calvin RN RN as6 Karina Christopher RN RN eh3 Dunlop, Stephanie, MD MD sd2 Genet Shaw mmShannon Corrections: (The following items were deleted from the chart) 09/25 22:21 21:32 PROBNP+C.LAB.BRZ drawn and sent. mm9 EDMS
--- NOTE | 2022-09-25 23:11 | EDPHYS ---
Physician Documentation [facility] Name: Dara Looney Age: 47 yrs Sex: Female : 1975 Arrival Date: 09/25/2022 Time: 20:53 Bed 23 Private MD: ED Physician Bettina Philippe HPI: 09/25 21:14 This 47 yrs old Female presents to ER via Unassigned with complaints of Chest sd2 Pain. 21:14 47 yo F presents with CC of chest pain. Reports started earlier today on her way back sd2 home and then worsened once she got home. Located in left side of her chest radiating to her left arm with associated SOB. Denies n/v or diaphoresis. Reports hx of 2 "mild heart attacks" that only showed up on the blood work but not the EKG. Has never had a heart cath previously and last stress test she reports was many years ago. Currently only takes Nexium. . 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 - Social history:: Smoking status: Patient denies any tobacco usage or history of. ROS: 21:14 Constitutional: Negative for fever, chills, and weight loss, Eyes: Negative for injury, sd2 pain, redness, and discharge. 21:14 Abdomen/GI: Negative for abdominal pain, nausea, vomiting, diarrhea. MS/Extremity: Negative for injury and deformity, Skin: Negative for injury, rash, and discoloration, Neuro: Negative for headache, numbness and tingling. 21:14 Cardiovascular: Positive for chest pain, Negative for edema, palpitations. 21:14 Respiratory: Positive for shortness of breath, Negative for cough, dyspnea on exertion, wheezing. Exam: 21:14 Constitutional: This is a well developed, well nourished patient who is awake, alert, sd2 and in no acute distress. Head/Face: Normocephalic, atraumatic. Eyes: EOMI, normal conjunctiva bilaterally Chest/axilla: Normal chest wall appearance and motion. Mild reproducible L anterior chest wall tenderness without crepitus Cardiovascular: Regular rate and rhythm with a normal S1 and S2. No gallops, murmurs, or rubs. 2+ distal pulses. Respiratory: Lungs have equal breath sounds bilaterally, clear to auscultation and percussion. No rales, rhonchi or wheezes noted. No increased work of breathing, no retractions or nasal flaring. Abdomen/GI: Soft, non-tender, with normal bowel sounds. No guarding or rebound. No evidence of tenderness throughout. Skin: Warm, dry with normal turgor. Normal color with no rashes, no lesions, and no evidence of cellulitis. MS/ Extremity: Pulses equal, no cyanosis. Neurovascular intact. Full, normal range of motion. Ambulatory without difficulty. Psych: Awake, alert, with orientation to person, place and time. Behavior, mood, and affect are within normal limits. 21:14 ECG was reviewed by the Attending Physician. Sinus bradycardia, rate 50, no STEMI criteria, wandering baseline, PACs present Vital Signs: 21:35 BP 107 / 78; Pulse 91; Resp 32; Temp 99.2(O); Pulse Ox 99% on R/A; Weight 89.81 kg; mm9 Height 5 ft. 5 in. (165.10 cm); Pain 10/10; 09/26 00:08 BP 90 / 49; Pulse 72; Resp 15; Pulse Ox 99% on R/A; jb4 00:30 BP 93 / 59; Pulse 70; Resp 14; Pulse Ox 97% on R/A; jb4 01:34 BP 93 / 57; Pulse 84; Resp 18 S; Pulse Ox 99% on R/A; as6 09/25 21:35 Body Mass Index 32.95 (89.81 kg, 165.10 cm) mm9 MDM: 09/25 21:21 Differential diagnosis: Differential diagnosis includes but is not limited to: ACS, sd2 DVT/PE, pneumothorax, dissection, musculoskeletal, anxiety, anemia, electrolyte abnormality, pneumonia, CHF, COPD among others. The patient was given aspirin in the Emergency Department. Data reviewed: vital signs, nurses notes. 21:31 Patient medically screened. sd2 23:06 Data reviewed: lab test result(s), EKG, radiologic studies. Counseling: I had a sd2 detailed discussion with the patient and/or guardian regarding: the historical points, exam findings, and any diagnostic results supporting the discharge/admit diagnosis, lab results, radiology results, the need for further work-up and treatment in the hospital. ED course: Labs and imaging reviewed. Trop neg. Pt with intermittent waves of CP with some improvement with NTG. Will plan to admit for further chest pain rule out.. 09/25 20:59 Order name: CBC with Diff; Complete Time: 21:55 sd2 09/25 20:59 Order name: CMP; Complete Time: 22:35 sd2 09/25 20:59 Order name: Troponin High Sensitivity; Complete Time: 22:35 sd2 09/25 22:21 Order name: NT PRO-BNP; Complete Time: 22:35 EDMS 09/25 22:46 Order name: COVID-19/FLU A+B; Complete Time: 00:23 la1 09/25 20:59 Order name: XRAY Chest (1 view); Complete Time: 22:25 sd2 09/25 23:17 Order name: DD; Complete Time: 00:23 la1 09/26 00:24 Order name: CT Chest For PE Angio sd2 09/26 04:54 Order name: CBC with Automated Diff EDMS 09/26 04:57 Order name: Basic Metabolic Panel EDMS 09/26 04:57 Order name: Troponin High Sensitivity EDMS 09/26 04:57 Order name: Lipid Profile EDMS 09/25 20:59 Order name: EKG - Nurse/Tech; Complete Time: 21:32 sd2 Administered Medications: 21:56 Drug: Nitroglycerin 0.4 mg Route: Sublingual; eh3 21:57 Drug: Aspirin Chewable Tablet 324 mg Route: PO; eh3 22:00 Drug: morphine 4 mg Route: IVP; Infused Over: 4 mins; Site: left antecubital; eh3 22:00 Drug: Zofran (Ondansetron) 4 mg Route: IVP; Site: left antecubital; eh3 22:51 Drug: Nitroglycerin 0.4 mg Route: Sublingual; eh3 23:55 Drug: NS 0.9% 500 ml Route: IV; Rate: bolus; Site: left antecubital; jb4 23:55 Not Given (Patient Refused): fentaNYL (PF) 50 mcg IVP once jb4 09/26 00:54 Drug: NS 0.9% 1000 ml Route: IV; Rate: 100 ml/hr; Site: left antecubital; jb4 00:54 Not Given (Patient Refused): Tylenol 1000 mg PO once jb4 Disposition Summary: 09/25/22 23:10 Hospitalization Ordered Hospitalization Status: Observation sd2 Provider: Francis Dunn sd2 Condition: Stable sd2 Problem: new sd2 Symptoms: have improved sd2 Bed/Room Type: Standard sd2 Location: [facility] ER HOLD(09/26/22 00:04) tw Room Assignment: ERHOLD-(09/26/22 00:04) Diagnosis - Chest pain, unspecified sd2 Forms: - Medication Reconciliation Form sd2 - SBAR form sd2 Signatures: Dispatcher [employer] EDDE Koko Avitia, WAITER/WAITRESS FORMAL-C WAITER/WAITRESS FORMAL-Cla1 Bill Neal RN RN jb4 Zoë Smyth tw5 Bebeto Calvin RN RN as6 Karina Christopher RN RN 3 Bettina Philippe MD MD sd2 Corrections: (The following items were deleted from the chart) 09/25 22:21 21:14 PROBNP+C.LAB.BRZ ordered. [facility] EDDE 09/26 00:04 09/25 23:10 Telemetry/MedSurg (observation) sd2 09/26 00:04 09/25 23:10 sd2 5
[2022-09-25] MEDS ORDERED: NA CHLORIDE 0.9% 500 ML ONE (23:49)
[2022-09-26 00:22] LABS: SARS-COV-2 RT PCR NEGATIVE (NEGATIVE)
[2022-09-26] MEDS ORDERED: NA CHLORIDE 0.9% 1,000 ML ONE (00:43)
[2022-09-26] MEDS ORDERED: NA CHLORIDE 0.9% 1,000 ML IV SCH (02:47)
[2022-09-26] MEDS ORDERED: MORPHINE 2 MG/ML SYR IV PRN (02:47)
[2022-09-26] MEDS ORDERED: ONDANSETRON 4 MG/2 ML VIAL IV PRN (02:47)
--- NOTE | 2022-09-26 03:18 | P.HP ---
Certification for Inpatient Patient admitted to: Observation With expected LOS: <2 Midnights Patient will require the following post-hospital care: None Practitioner: I am a practitioner with admitting privileges, knowledge of patient current condition, hospital course, and medical plan of care. Services: Services provided to patient in accordance with Admission requirements found in Title 42 Section 412.3 of the Code of Federal Regulations Patient History Date of Service: 09/26/22 Reason for admission: Chest pain History of Present Illness: 47-year-old female with history of hiatal hernia, GERD presents to the emergency department for chest pain. She reports her pain began yesterday afternoon described as pressure/crushing substernal radiating to her back with associated shortness of breath. She was evaluated in the emergency department here her labs were significant for initial high-sensitivity troponin of 4.7 D-dimer 658 CT PE protocol negative for acute findings, EKG without STEMI criteria present. Patient's last cardiac evaluation was in 2019 when she had an exercise stress test as well as echocardiogram which at that time were negative. Patient has never had heart catheterization or stent placement. ED provider wishes to admit under observation for ACS rule out. 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 moist/pink, EOMI, Sclerae nonicteric Neck: Supple, 2+ carotid pulse no bruit, No LAD, Without JVD or thyroid abnormality Respiratory: Clear to auscultation bilaterally, Normal air movement Cardiovascular: Regular rate/rhythm, Normal S1 S2 Capillary refill: <2 Seconds Gastrointestinal: Normal bowel sounds, No tenderness Musculoskeletal: No tenderness Integumentary: No rashes Neurological: Normal speech, Normal strength at 5/5 x4 extr, Normal tone, Normal affect - Studies Laboratory Data (last 24 hrs) 09/25/22 21:15: Sodium 138, Potassium 3.7, BUN 11, Creatinine 1.02, Glucose 101, Total Bilirubin 0.5, AST 8 L, ALT 15, Alkaline Phosphatase 68 09/25/22 21:15: WBC 10.80, Hgb 13.6, Hct 40.8, Plt Count 383 Assessment and Plan - Plan Assessment: Chest pain rule out ACS GERD Plan: Chest pain rule out ACS: Trend troponins, monitor on telemetry, cardiology consult in place. CT PE protocol negative for pulmonary embolism, dissection. Continue aspirin, statin hold beta-cathy given patient's relatively low blood pressure with systolics around 95-100. As needed morphine with hold parameters. Will also give patient medication for GERD as this may be contributing. Appreciate further part from cardiology. GERD: Daily Protonix. DVT PPX: Lovenox Code status: Full Discharge Plan: Home Plan to discharge in: 24 Hours - Advance Directives Does patient have a Living Will: No Does patient have a Durable POA for Healthcare: No - Code Status/Comfort Care Code Status Assessed: Yes (Full code) Critical Care: No Time Spent Managing Pts Care (In Minutes): 55
[2022-09-26 04:16] VITALS: BMI 32.9
[2022-09-26 04:18] VITALS: BP 94/64; TEMP 98.2
[2022-09-26 04:44] LABS: Absolute Lymphocytes (CBC) 2.8 K/uL (0.7-4.9); Hematocrit 36.3 % (36.0-45.0); Lymphocytes % 25.5 % (15.3-44.8); MCV 86.8 fL (80-100); MPV 8.7 fL (7.6-11.3); RBC Red Blood Cell Count 4.18 M/uL (3.86-4.86)
[2022-09-26 04:57] LABS: Potassium 3.9 mmol/L (3.5-5.1); Troponin High Sensitivity 4.9 pg/mL (<58.9)
[2022-09-26] MEDS ORDERED: PANTOPRAZOLE 40MG TABLET PO SCH (06:30)
[2022-09-26] MEDS ORDERED: INFLUENZA VACCINE (for 6+ mo) 0.5 ML DOSE IMVAC ONE (08:00)
[2022-09-26] MEDS ORDERED: ENOXAPARIN 40 MG/0.4 ML SQ SCH (09:00)
[2022-09-26] MEDS ORDERED: ASPIRIN EC 81 MG TAB PO SCH (09:00)
[2022-09-26 09:37] VITALS: O2SAT 99
--- NOTE | 2022-09-26 09:53 | P.DS ---
Admission Date: 09/26/22 Discharge Date: 09/26/22 Disposition: AMA-LEFT AGAINST MEDICAL ADVIC Discharge Condition: FAIR Reason for Admission: Chest pain Brief History of Present Illness: 47-year-old female with history of hiatal hernia, GERD presents to the emergency department for chest pain. She reports her pain began yesterday afternoon described as pressure/crushing substernal radiating to her back with associated shortness of breath. She was evaluated in the emergency department here her labs were significant for initial high-sensitivity troponin of 4.7 D-dimer 658 CT PE protocol negative for acute findings, EKG without STEMI criteria present. Patient's last cardiac evaluation was in 2019 when she had an exercise stress test as well as echocardiogram which at that time were negative. Patient was placed under observation for ACS rule out. Hospital Course: Troponin x2 negative. Lipid profile within normal limit. Patient signed out AGAINST MEDICAL ADVICE this morning and left before could get the chance to see her. Vital Signs/Physical Exam: Temp Pulse Resp BP Pulse Ox 98.2 F 65 12 94/64 99 09/26/22 04:00 09/26/22 04:00 09/26/22 04:00 09/26/22 04:00 09/26/22 04:00 Laboratory Data at Discharge: WBC 10.90 K/uL (4.3-10.9) 09/26/22 04:13 Hgb 12.1 g/dL (12.0-15.0) D 09/26/22 04:13 Hct 36.3 % (36.0-45.0) 09/26/22 04:13 Plt Count 335 K/uL (152-406) 09/26/22 04:13 Sodium 138 mmol/L (136-145) 09/26/22 04:13 Potassium 3.9 mmol/L (3.5-5.1) 09/26/22 04:13 BUN 10 mg/dL (7-18) 09/26/22 04:13 Creatinine 1.01 mg/dL (0.55-1.3) 09/26/22 04:13 Glucose 106 mg/dL (74-106) 09/26/22 04:13 Total Bilirubin 0.5 mg/dL (0.2-1.0) 09/25/22 21:15 AST 8 U/L (15-37) L 09/25/22 21:15 ALT 15 U/L (12-78) 09/25/22 21:15 Alkaline Phosphatase 68 U/L (45-117) 09/25/22 21:15 Triglycerides 69 mg/dL (<150) 09/26/22 04:13 Cholesterol 156 mg/dL (<200) 09/26/22 04:13 HDL Cholesterol 43 mg/dL (40-60) 09/26/22 04:13 Cholesterol/HDL Ratio 3.63 09/26/22 04:13 Home Medications: Esomeprazole Mag Trihydrate [Nexium] 40 mg PO DAILY 12/08/14 Oseltamivir [Tamiflu*] 75 mg PO BID #6 cap 01/23/19 Followup: Bright Mckinney MD [ACTIVE - CAN ADMIT] - 1-2 Weeks NONE,NONE [Primary Care Provider] -
--- NOTE | 2022-09-26 14:21 | RAD REPORT ---
EXAM DESCRIPTION: CT - Chest For Pe Angio - 09/26/2022 6:55 am CLINICAL HISTORY: 47 years, Female, CP, SOB, r/o PE with elevated D-dimer COMPARISON: 05/22/2020 TECHNIQUE: Multiple transaxial tomograms of the chest were obtained from the lung apices through the lung bases utilizing 2 mm slice thickness at 2 mm interval reconstruction after the administration o f large bolus of IV contrast for complete opacification of the pulmonary arteries. Subsequent 3-D maximum intensity projection images were generated in the coronal and sagittal plane f or review. This exam was performed according to our departmental dose-optimization protocol, which includes auto mated exposure control, adjustment of the mA and/or kV according to patient size and/or use of iterat calderon reconstruction technique. FINDINGS: The lungs parenchyma demonstrate minimal dependent atelectatic changes lung bases. There i s no evidence for pneumothorax. No masses, nodules and/or consolidations are identified. The trachea mainstem bronchus demonstrate to be normal. There is no significant pericardial or pleura l effusions. The thoracic aorta demonstrate to be within normal limits. There is no evidence for significant disse ction/or aneurysm. The heart is normal in size. No evidence for right ventricular strain. There are n o coronary artery calcifications. There is no significant mediastinal and/or hilar lymphadenopathy. The axillary regions demonstrate to be clear. Pulmonary arteries demonstrate to be normal, no intraluminal defect are seen that would suggest pulmo nary embolus. The bone windows demonstrate no significant skeletal lesions. There is a moderate size hiatal herni a The visualized portions of the upper abdomen demonstrate to unremarkable. IMPRESSION: No evidence for pulmonary embolism and/or thoracic aortic dissection. Moderate size hiatal hernia. Electronically signed by: Yoan Ozuna MD 09/26/2022 2:06 AM ENGINEERING TECHNICAL ANALYST Due to temporary technical issues with the PACS/Fluency reporting system, reports are being signed by the in house radiologists without review as a courtesy to insure prompt reporting. The interpreting radiologist is fully responsible for the content of the report.
--- NOTE | 2022-09-26 15:28 | EKG ---
Test Date: 2022-09-25 Test Time: 22:32:01 Television Program Director: LOGAN MEASUREMENT RESULTS: Intervals: Rate: 81 MN: 144 QRSD: 76 QT: 392 QTc: 455 [place]: P: 26 MN: 144 QRS: -18 T: 45 INTERPRETIVE STATEMENTS: Normal sinus rhythm Low voltage QRS Cannot rule out Anterior infarct, age undetermined Abnormal ECG Compared to ECG 05/18/2019 16:47:54 Low QRS voltage now present Myocardial infarct finding now present Prolonged QT interval no longer present Electronically Signed On 09-26-22 15:27:32 HIP HOP DANCE INSTRUCTOR by Benson Cui
--- NOTE | 2022-09-26 15:29 | EKG ---
Test Date: 2022-09-25 Test Time: 21:21:34 Medical Science Liaison: LOGAN MEASUREMENT RESULTS: Intervals: Rate: 87 MA: 154 QRSD: 74 QT: 380 QTc: 457 [place]: P: 36 MA: 154 QRS: -6 T: 54 INTERPRETIVE STATEMENTS: Normal sinus rhythm Low voltage QRS Cannot rule out Anterior infarct, age undetermined Abnormal ECG Compared to ECG 05/18/2019 16:47:54 Low QRS voltage now present Myocardial infarct finding now present Prolonged QT interval no longer present Electronically Signed On 09-26-22 15:27:37 AGRICULTURAL TECHNICAL OFFICER by Benson Cui
[2022-09-26] MEDS ORDERED: ATORVASTATIN 40 MG TAB PO SCH (21:00)
== END 2022-09-26 08:30 | disposition left against medical advice (07) ==
LOC: ER 20:53 → ERHOLD 09-26 01:31 → INTOOBSV 09-26 01:31
PROVIDERS: ADMIT Internal Medicine; ATTEND Internal Medicine
DX: R07.9 Chest pain, unspecified (principal); K21.9 Gastro-esophageal reflux disease without esophagitis; K44.9 Diaphragmatic hernia without obstruction or gangrene; Z53.21 Procedure and treatment not carried out due to patient leaving prior to being seen by health care provider; Z20.822 Contact with and (suspected) exposure to COVID-19; Z23 Encounter for immunization
CPT/HCPCS: 93005 ×2; 85025 ×2; 80048; 36415; 80061; 85379; 84484 ×2; 80053; 83880; 0240U; 71275; 71045; 96375; 96374; 99285; Q9967; J7040; J7030; J2405; G0378 ×2